=== PATIENT | female | born 1940 | race Caucasian/White ===

== ENCOUNTER 2018-06-22 10:27 | Inpatient (IN) | payer MEDICARE, MEDICAID, SELFPAY ==
[2018-06-22] VITALS (18 sets, daily range): BP systolic 89–143; BP diastolic 49–76; PULSE 76–115; RESP 15–29; TEMP 36.1–36.3; O2SAT 88–100; BMI 41.7
--- NOTE | 2018-06-22 | DI.ECHO.S_ITS ---
[facility] +---------+ : : [address] [place] : : : : [id number] : : : : Phone: [phone] Echocardiogram Report + + :Name: ADRIAN GATES Study Date: 06/22/2018 Height: 62 in : :[facility] Exam Location: IS Weight: 227 lb: : Gender: Female BSA: 2.0 m2 : :: 1940 Age: 78 yrs BP: 89/49 mmHg: :Reason For Study: SOB : :Ordering Physician: Cecil : :Hospitalist Performed By: Yelena Corona : :Referring: SERVANDO WILDER : + + Interpretation Summary Technically limited echocardiogram. No apical views are available for review. Indeterminate rhythm. Wide QRS complexes; heart rate is 90-100 bpm. Normal LV size; mild LVH; normal wall motion and LV systolic function. EF is 60-65%. Aortic sclerosis without stenosis. There is aortic regurgitation present. Can not quantify severity of AI due to technically limited views. Mitral valve leaflets are normal; mild MAC. There is a pacing lead traversing the tricuspid valve with moderate associated TR; estimated PA systolic pressure is 50 mm Hg assuming RA pressure of 10 mm Hg. There is severely dilated ascending aorta estimated at 5.2 cm diameter. No prior study available for comparison. Procedure: A two-dimensional transthoracic echocardiogram with color flow and Doppler was performed. The study quality was technically limited. Comparison is made with the echocardiogram of 08/03/15. The patient had a bundle branch block rhythm during the exam. Left Ventricle: The left ventricle is normal in size. There is mild concentric left ventricular hypertrophy. Due to the poor quality of the echocardiogram, an assessment of left ventricular ejection fraction cannot be made. [place] appears to be hypo to akinetic. Regional wall motion abnormalities cannot be excluded due to limited visualization. Right Ventricle: The right ventricle grossly appears normal in size with probable normal systolic function. Atria: The left atrium is not well visualized. Right atrium not well visualized. There is no Doppler evidence for an interatrial shunt. Mitral Valve: The mitral valve leaflets appear mildly thickened, but open well. There is mild mitral annular calcification. At least mild MR. Aortic Valve: The aortic valve is not well visualized. There is mild aortic valve sclerosis. The aortic valve opens well. At least mild to moderate AR. Tricuspid Valve: The tricuspid valve is normal. There is moderate tricuspid regurgitation. The right ventricular systolic pressure is estimated to be at least 43 mmHg based on an estimated right atrial pressure of 3 mm Hg. Pulmonic Valve: The pulmonic valve is not well visualized. There is trace pulmonic regurgitation. Great Vessels: The aortic root is normal size. The ascending aorta is severely enlarged. The aortic arch is mildly enlarged. The pulmonary is not well visualized. The IVC is of normal diameter and collapses greater than 50% with a sniff. This suggests a low right atrial pressure of 3 mm Hg. Pericardium/ Pleura There is no pericardial effusion. There is no pleural effusion. MMode/2D Measurements & Calculations LVIDd: 5.4 cm LVOT diam: 2.1 cm LVIDs: 3.5 cm Ao root diam: 3.6 cm FS: 35.1 % asc Aorta Diam: 5.2 cm EPSS: 0.38 cm Ao Arch Diam (Prox Trans): 3.4 cm IVSd: 1.3 cm LVPWd: 1.2 cm LV ceron. diameter/BSA (cm/m^2): 2.7 LV sys. diameter/BSA (cm/m^2): 1.7 IVC diam: 2.0 cm Doppler Measurements & Calculations TR max sania: 316.7 cm/sec TR max P.1 mmHg PA V2 max: 85.5 cm/sec PA V2 mean: 57.0 cm/sec PA mean P.5 mmHg PA pr(Accel): 29.1 mmHg Reading Physician:05:17 PM
--- NOTE | 2018-06-22 10:37 | ED_ITS ---
HPI - SOB/Dyspnea General Chief Complaint: Shortness of Breath/Dyspnea Stated Complaint: SOB, Abd pain Time Seen by Provider: 06/22/18 10:37 Source: patient and EMS Mode of arrival: EMS Limitations: no limitations History of Present Illness 78-year-old female who is a DNR but is amendable to BiPAP and intubation brought in from [facility] by EMS for approximately 1-2 days of shortness of breath. Was recently diagnosed with a urinary tract infection. 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 States that over the past couple days her breathing has gotten worse. She is not on oxygen at home. She states that in May she was admitted to the hospital to try to get fluid off of her lungs. She did not know she cared with her the diagnosis of CHF. she states that she has been told that she has had a heart attack in the past but she did not know it. Related Data Home Medications Medication Instructions Recorded Confirmed acetaminophen 1,000 mg PO Q12HR 06/22/18 06/22/18 amoxicillin-pot clavulanate 1 tab PO BID 06/22/18 06/22/18 aspirin 81 mg PO DAILY 06/22/18 06/22/18 calcium carbonate 2 tab PO DAILY 06/22/18 06/22/18 carvedilol 12.5 mg PO BID 06/22/18 06/22/18 cholecalciferol (vitamin D3) 2,000 unit PO DAILY 06/22/18 06/22/18 [Vitamin D3] ezetimibe 10 mg PO DAILY 06/22/18 06/22/18 furosemide 2 tab PO DAILY 06/22/18 06/22/18 hydralazine 12.5 mg PO TID 06/22/18 06/22/18 lisinopril 1 tab PO DAILY 06/22/18 06/22/18 nitroglycerin 0.4 mg SUBLINGUAL PRN 06/22/18 oxycodone 2.5 mg PO BEDTIME 06/22/18 06/22/18 polyethylene glycol 3350 17 g PO DAILY 06/22/18 06/22/18 prednisone 1 mg PO DAILY 06/22/18 06/22/18 torsemide 60 mg PO DAILY 06/22/18 06/22/18 warfarin 2.5 mg PO DIRECTED 06/22/18 06/22/18 warfarin 5 mg PO DIRECTED 06/22/18 06/22/18 Allergies Allergy/AdvReac Type Severity Reaction Status Date / Time No Known Drug Allergies Allergy Verified 06/22/18 11:36 Review of Systems Constitutional Denies fever(s) and Denies headache(s) ENT Ears, Nose, Mouth, and Throat: Denies headache(s) Cardiovascular Denies chest pain and Reports dyspnea Respiratory Denies cough, Denies excessive phlegm production, Reports dyspnea and Reports wheezing Gastrointestinal Gastrointestinal: Reports abdominal pain, Denies change in stool character, Denies nausea and Denies vomiting Genitourinary Denies dysuria Musculoskeletal Denies myalgias and Denies arthralgias Integumentary/Breasts Denies lesions and Denies rash Neurologic Denies headache(s) Hematologic/Lymphatic Denies easy bleeding and Denies easy bruising Allergic/Immunologic Reports wheezing [facility] Medical History Congestive heart failure of unknown etiology (Acute) Coronary artery disease (Acute) Surgical History History of permanent cardiac pacemaker placement (Acute) Social History household members: children Smoking Status: Never smoker alcohol intake: never Exam Initial Vital Signs Initial Vital Signs: Vital Signs Temperature 97.0 F L 06/22/18 10:40 Const General: No healthy appearing ( ill-appearing) and well developed HENMT Head: normal to inspection and normocephalic Eyes EOM: EOM intact bilaterally Neck Neck: No anterior neck swelling Resp Effort & Inspection: no cough, labored, respiratory distress, no retractions and tachypneic Auscultation: rhonchi upper bilaterally and lower bilaterally Cardio Rate: tachycardic Rhythm: regular rhythm Pulses: radial pulses present GI Inspection: non-distended Palpation: soft, No firm and No tender Skin Other: bilateral chronic venous stasis changes bilateral lower extremities Neuro General: alert, awake and oriented x3 Speech: speech normal Extrem General: normal to inspection and edema ( bilateral 2+ pitting edema lower extremities) Psych Appearance: grossly normal and well kempt Course Orders Ordered: ED Orders 06/22/18 10:44 XR chest 1V Stat EKG-12 Lead Stat 06/22/18 11:47 B Type Natriuretic Peptide Stat Complete Blood Count AUTO DIFF Stat Comprehensive Metabolic Panel Stat Lactate (Lactic Acid) Stat Lipase Stat Procalcitonin Stat Troponin I Stat 06/22/18 11:54 Blood Culture Stat 06/22/18 12:09 Arterial Blood Gas Stat 06/22/18 12:30 Partial Thromboplastin Time Stat Prothrombin Time INR Stat 06/22/18 13:44 Consult to Physician Routine Osmolality Urine Urgent Sodium Urine Random Urgent Urinalysis and Microscopic Stat Urine Culture Stat 06/22/18 14:40 MRSA PCR Stat 06/22/18 15:21 Consult to Dietitian, Adult Routine Consult to Pastoral Services Routine Acetaminophen (Tylenol) 650 mg PO Q6HR PRN PRN Reason: As Needed for Fever/Mild Pain Sodium Chloride (Normal Saline 0.9%) 1,000 mls @ 125 mls/hr IV CONT LILLY Last Admin: 06/22/18 15:06 Dose: 125 mls/hr Nystatin (Nystop) 1 applic TOP BID PRN PRN Reason: Rash Pantoprazole Sodium (Protonix) 40 mg PO 0700 [facility] Discontinued Medications Furosemide (Lasix) 80 mg IV NOW ONE Stop: 06/22/18 11:08 Last Admin: 06/22/18 11:37 Dose: 80 mg Lorazepam (Ativan) 0.5 mg IV NOW ONE Stop: 06/22/18 12:22 Last Admin: 06/22/18 12:22 Dose: 0.5 mg Nitroglycerin (Nitro-Bid) 1 inch TOP NOW ONE Stop: 06/22/18 11:57 Last Admin: 06/22/18 12:23 Dose: Ondansetron HCl (Zofran) 4 mg IV NOW ONE Stop: 06/22/18 11:39 Last Admin: 06/22/18 11:37 Dose: 4 mg Phytonadione (Mephyton) 5 mg PO NOW ONE Stop: 06/22/18 12:43 Last Admin: 06/22/18 12:51 Dose: 5 mg Vital Signs - 8 hr 06/22/18 10:40 06/22/18 11:05 06/22/18 11:30 Temperature 97.0 F L Pulse Rate 113 H 98 H Respiratory Rate 29 H 27 H Blood Pressure Blood Pressure [Left Arm] 143/75 H 128/73 Pulse Oximetry 88 L 100 06/22/18 12:02 06/22/18 12:23 06/22/18 12:30 Temperature Pulse Rate 98 H 96 H 99 H Respiratory Rate 24 24 Blood Pressure 112/69 Blood Pressure [Left Arm] 112/59 L 108/66 Pulse Oximetry 99 06/22/18 13:00 06/22/18 13:30 06/22/18 14:00 Temperature Pulse Rate 96 H 92 H 91 H Respiratory Rate 24 24 Blood Pressure Blood Pressure [Left Arm] 96/53 L 92/56 L 89/49 L Pulse Oximetry 100 100 100 06/22/18 17:09 Temperature Pulse Rate 76 Respiratory Rate 16 Blood Pressure Blood Pressure [Left Arm] Pulse Oximetry 96 MDM - SOB/Dyspnea Medical Records Attestation: I reviewed the patient's medical records. Lab Data Attestation: I reviewed the patient's lab results. Result diagrams: 06/22/18 11:47 06/22/18 11:47 Lab Results 06/22/18 06/22/18 06/22/18 Range/Units 11:47 11:47 11:47 WBC 13.2 H (4.5-11.0) X10^3/uL RBC 3.42 L (4.0-5.2) X10^6/uL Hgb 9.8 L (12.0-16.0) g/dL Hct 30.4 L (36-46) % MCV 88.8 (80-100) fL MCH 28.7 (26-34) PG MCHC 32.4 (30-36) % RDW 18.2 H (11.6-14.8) % Plt Count 245 (150-400) X10^3/uL Neut % (Auto) 93.3 H (50-75) % Lymph % (Auto) 3.3 L (25-40) % [place] % (Auto) 2.6 L (3-14) % Eos % (Auto) 0.5 L (2-4) % Baso % (Auto) 0.3 (0-2) % Neut # (Auto) 20650 H (6825-0937) /uL PT (10.1-12.7) SECONDS INR (0.9-1.3) APTT (26.4-36.2) SECONDS ABG pH (7.35-7.45) ABG pCO2 (35-45) mmHg ABG pO2 (80-105) mmHg ABG HCO3 (23-27) mmol/L ABG Total CO2 (23-27) mmol/L ABG O2 Saturation (95-100) % ABG Base Excess (-2-3) mmol/L FiO2 Sodium 142 (137-145) mmol/L Potassium 5.4 H (3.4-5.1) mmol/L Chloride 102 (98-107) mmol/L Carbon Dioxide 29 (22-32) mmol/L BUN 65 H (7-17) mg/dL Creatinine 1.80 H (0.52-1.04) mg/dL Estimated GFR 27.1 L (>60) mL/min BUN/Creatinine Ratio 36.1 H (6-22) Glucose 134 H (80-110) mg/dL Lactate (0.7-2.1) mmol/L Calcium 9.7 (8.4-10.2) mg/dL Total Bilirubin 0.5 (0.2-1.3) mg/dL AST 31 (14-36) IU/L ALT 33 (9-52) IU/L Alkaline Phosphatase 80 (38-126) U/L Troponin I 0.032 (0.01-0.034) ng/mL B-Natriuretic Peptide 590.0 H (<100) Total Protein 7.5 (6.3-8.2) g/dL Albumin 4.3 (3.5-5.0) g/dL Globulin 3.2 (1.7-4.1) g/dL Albumin/Globulin Ratio 1.3 (1.0-2.8) Lipase 461 H (23-300) U/L Procalcitonin < 0.05 (<0.5) ng/mL Urine Color Urine Appearance Urine pH (4.5-8.0) Ur Specific [place] (1.000-1.035) Urine Protein (Negative) Urine Glucose (UA) (Normal) g/dL Urine Ketones (NEGATIVE) Urine Occult Blood (Negative) Urine Nitrate (Negative) Urine Bilirubin (NEGATIVE) Urine Urobilinogen (0.2) E.U./dL Ur Leukocyte Esterase (NEGATIVE) Urine RBC (0-5/HPF) Urine WBC (0-5/HPF) Ur Squamous Epith Cells Urine Bacteria (None) Ur Culture Indicated? Micro UA Comment Ur Random Sodium (30-90) mmol/L Nasal Screen MRSA (PCR) (Negative) 06/22/18 06/22/18 06/22/18 Range/Units 11:47 12:09 12:30 WBC (4.5-11.0) X10^3/uL RBC (4.0-5.2) X10^6/uL Hgb (12.0-16.0) g/dL Hct (36-46) % MCV (80-100) fL MCH (26-34) PG MCHC (30-36) % RDW (11.6-14.8) % Plt Count (150-400) X10^3/uL Neut % (Auto) (50-75) % Lymph % (Auto) (25-40) % [place] % (Auto) (3-14) % Eos % (Auto) (2-4) % Baso % (Auto) (0-2) % Neut # (Auto) (9268-7021) /uL PT 118.2 H (10.1-12.7) SECONDS INR 10.4 H* (0.9-1.3) APTT 84 H* (26.4-36.2) SECONDS ABG pH 7.42 (7.35-7.45) ABG pCO2 42.5 (35-45) mmHg ABG pO2 136 H (80-105) mmHg ABG HCO3 27 (23-27) mmol/L ABG Total CO2 29 H (23-27) mmol/L ABG O2 Saturation 99 (95-100) % ABG Base Excess 3.0 (-2-3) mmol/L FiO2 0.5 Sodium (137-145) mmol/L Potassium (3.4-5.1) mmol/L Chloride (98-107) mmol/L Carbon Dioxide (22-32) mmol/L BUN (7-17) mg/dL Creatinine (0.52-1.04) mg/dL Estimated GFR (>60) mL/min BUN/Creatinine Ratio (6-22) Glucose (80-110) mg/dL Lactate 0.8 (0.7-2.1) mmol/L Calcium (8.4-10.2) mg/dL Total Bilirubin (0.2-1.3) mg/dL AST (14-36) IU/L ALT (9-52) IU/L Alkaline Phosphatase (38-126) U/L Troponin I (0.01-0.034) ng/mL B-Natriuretic Peptide (<100) Total Protein (6.3-8.2) g/dL Albumin (3.5-5.0) g/dL Globulin (1.7-4.1) g/dL Albumin/Globulin Ratio (1.0-2.8) Lipase (23-300) U/L Procalcitonin (<0.5) ng/mL Urine Color Urine Appearance Urine pH (4.5-8.0) Ur Specific [place] (1.000-1.035) Urine Protein (Negative) Urine Glucose (UA) (Normal) g/dL Urine Ketones (NEGATIVE) Urine Occult Blood (Negative) Urine Nitrate (Negative) Urine Bilirubin (NEGATIVE) Urine Urobilinogen (0.2) E.U./dL Ur Leukocyte Esterase (NEGATIVE) Urine RBC (0-5/HPF) Urine WBC (0-5/HPF) Ur Squamous Epith Cells Urine Bacteria (None) Ur Culture Indicated? Micro UA Comment Ur Random Sodium (30-90) mmol/L Nasal Screen MRSA (PCR) (Negative) 06/22/18 06/22/18 06/22/18 Range/Units 13:44 13:44 14:40 WBC (4.5-11.0) X10^3/uL RBC (4.0-5.2) X10^6/uL Hgb (12.0-16.0) g/dL Hct (36-46) % MCV (80-100) fL MCH (26-34) PG MCHC (30-36) % RDW (11.6-14.8) % Plt Count (150-400) X10^3/uL Neut % (Auto) (50-75) % Lymph % (Auto) (25-40) % [place] % (Auto) (3-14) % Eos % (Auto) (2-4) % Baso % (Auto) (0-2) % Neut # (Auto) (3954-7201) /uL PT (10.1-12.7) SECONDS INR (0.9-1.3) APTT (26.4-36.2) SECONDS ABG pH (7.35-7.45) ABG pCO2 (35-45) mmHg ABG pO2 (80-105) mmHg ABG HCO3 (23-27) mmol/L ABG Total CO2 (23-27) mmol/L ABG O2 Saturation (95-100) % ABG Base Excess (-2-3) mmol/L FiO2 Sodium (137-145) mmol/L Potassium (3.4-5.1) mmol/L Chloride (98-107) mmol/L Carbon Dioxide (22-32) mmol/L BUN (7-17) mg/dL Creatinine (0.52-1.04) mg/dL Estimated GFR (>60) mL/min BUN/Creatinine Ratio (6-22) Glucose (80-110) mg/dL Lactate (0.7-2.1) mmol/L Calcium (8.4-10.2) mg/dL Total Bilirubin (0.2-1.3) mg/dL AST (14-36) IU/L ALT (9-52) IU/L Alkaline Phosphatase (38-126) U/L Troponin I (0.01-0.034) ng/mL B-Natriuretic Peptide (<100) Total Protein (6.3-8.2) g/dL Albumin (3.5-5.0) g/dL Globulin (1.7-4.1) g/dL Albumin/Globulin Ratio (1.0-2.8) Lipase (23-300) U/L Procalcitonin (<0.5) ng/mL Urine Color Yellow Urine Appearance Sl cloudy Urine pH 6.0 (4.5-8.0) Ur Specific [place] 1.010 (1.000-1.035) Urine Protein Negative (Negative) Urine Glucose (UA) Negative (Normal) g/dL Urine Ketones Negative (NEGATIVE) Urine Occult Blood 2+ H (Negative) Urine Nitrate Negative (Negative) Urine Bilirubin Negative (NEGATIVE) Urine Urobilinogen 0.2 (0.2) E.U./dL Ur Leukocyte Esterase 2+ H (NEGATIVE) Urine RBC 1-5/hpf (0-5/HPF) Urine WBC 1-5/hpf (0-5/HPF) Ur Squamous Epith Cells 0-1 /hpf Urine Bacteria Occasional (0-1) (None) Ur Culture Indicated? Not Reportable Micro UA Comment Not Reportable Ur Random Sodium 89 (30-90) mmol/L Nasal Screen MRSA (PCR) Negative for mrsa (Negative) Imaging Data Chest x-ray: Radiologist's impression: [facility] [address] [place] [id number] XRay Report Signed Patient: Janet eMndez LMR#: [id number] : 8Acct:[id number] Age/Sex: 78 / FDate of Service: 06/22/18 Loc: ED Accession Number: [id number] Procedure: XR chest 1V Ordering Provider: Shashank Aragon D.O. PROCEDURE: XR CHEST 1V INDICATIONS: Short of breath TECHNIQUE: One view of the chest was acquired. COMPARISON: [facility], CT, THORAX WITHOUT CONTRAST, 08/03/2015, 2:01. [facility], CR, CHEST 1 VIEW, 08/03/2015, 1:24. FINDINGS: Surgical changes and devices: A pacer device is seen. Lungs and pleura: Poorly-defined nodular opacities are seen throughout the lungs. On this semiupright portable chest examination, no large pneumothorax or large pleural effusions are seen. Mediastinum: Mediastinal contours appear normal. Heart size is moderately enlarged. Bones and chest wall: No suspicious bony lesions. Age-appropriate bony degenerative changes are seen. Overlying soft tissues appear unremarkable. IMPRESSION: Poorly defined nodular opacities are seen throughout the lungs. Differential diagnosis includes metastatic disease, infection, inflammatory nodules. Please consider a dedicated chest CT with contrast for further evaluation. There is moderate cardiomegaly. Dictated by: Pako Love M.D. on 06/22/2018 at 10:33 Approved by: Pako Love M.D. on 06/22/2018 at 10:35 ECG Data Attestation: I personally reviewed and interpreted this ECG as follows: Prior ECG tracings: not available for review Interpretation: ventricularly paced ventricular rate of 111 QRS 190 milliseconds Normal QTC MDM Narrative Medical decision making narrative: Patient with much improvement in respiratory status on the BiPAP. She did receive some Ativan to help her with the symptoms. ABG shows a pH of 7.4 pCO2 of 42 PO2 of 136 99%. She was tolerating the BiPAP well. Chest x-ray shows diffuse pulmonary nodules. Unsure the etiology of these. She was also supratherapeutic on her INR. Was given vitamin K orally. Patient does need a CT with IV contrast however I feel she is not stable enough to get this in her creatinine is also elevated today. Discussed the case with Dr. Cortez with Internal Medicine who accepts the patient. Will send to the ICU. Discussed the admission with the patient. She expressed understanding and agreement. Discharge Plan Departure Patient Disposition: Admitted As Inpatient Clinical Impression: Congestive heart failure, Acute respiratory distress, Pulmonary nodule, Supratherapeutic INR Discharge Date/Time: 06/22/18 14:48 Interventions: ED Discharge Assessment Last Done: 06/22/18 14:25 Admit Date/Time: 06/22/18 13:47 Admit Provider: Meet Cortez
--- NOTE | 2018-06-22 10:44 | DI.RAD.S_ITS ---
PROCEDURE: XR CHEST 1V INDICATIONS: Short of breath TECHNIQUE: One view of the chest was acquired. COMPARISON: [facility], CT, THORAX WITHOUT CONTRAST, 08/03/2015, 2:01. [facility], CR, CHEST 1 VIEW, 08/03/2015, 1:24. FINDINGS: Surgical changes and devices: A pacer device is seen. Lungs and pleura: Poorly-defined nodular opacities are seen throughout the lungs. On this semiupright portable chest examination, no large pneumothorax or large pleural effusions are seen. Mediastinum: Mediastinal contours appear normal. Heart size is moderately enlarged. Bones and chest wall: No suspicious bony lesions. Age-appropriate bony degenerative changes are seen. Overlying soft tissues appear unremarkable. IMPRESSION: Poorly defined nodular opacities are seen throughout the lungs. Differential diagnosis includes metastatic disease, infection, inflammatory nodules. Please consider a dedicated chest CT with contrast for further evaluation. There is moderate cardiomegaly. Dictated by: Pako Love M.D. on 06/22/2018 at 10:33 Approved by: Pako Love M.D. on 06/22/2018 at 10:35
[2018-06-22] MEDS: ONDANSETRON 4 MG/2 ML INJ IV ×2 (11:37→21:36)
[2018-06-22] MEDS: FUROSEMIDE 100 MG/10 ML VIAL 80 MG IV (11:37)
[2018-06-22 11:57] LABS: Add Manual Diff / Slide Review NO; Basophils Percent Auto 0.3 % (0-2); Eosinophils Percent Auto 0.5 % (2-4); Hematocrit 30.4 % (36-46); Hemoglobin 9.8 g/dL (12.0-16.0); Lymphocytes Percent Auto 3.3 % (25-40); Mean Corpuscular HGB Conc 32.4 % (30-36); Mean Corpuscular Hemoglobin 28.7 PG (26-34); Mean Corpuscular Volume 88.8 fL (80-100); Monocytes Percent Auto 2.6 % (3-14); Neutrophils Absolute Auto 12300 /uL (3000-5900); Neutrophils Percent Auto 93.3 % (50-75); Platelet Count 245 X10^3/uL (150-400); Red Blood Cell Count 3.42 X10^6/uL (4.0-5.2); Red Cell Distribution Width 18.2 % (11.6-14.8); White Blood Cell Count 13.2 X10^3/uL (4.5-11.0)
--- NOTE | 2018-06-22 11:59 | PC.NURSE ---
pt placed on Bi-pap by RT. 02 sats increased from mid to upper 80's (86-88) to 100%, pt reports feeling a little bit better. She is resting more easliy, still able to communicate. getting 80mg lasix iv and attempting abg by rt)
[2018-06-22 12:07] LABS: Lactate (Lactic Acid) 0.8 mmol/L (0.7-2.1)
[2018-06-22 12:08] LABS: Alanine Aminotransferase 33 IU/L (9-52); Albumin 4.3 g/dL (3.5-5.0); Albumin Globulin Ratio 1.3 (1.0-2.8); Alkaline Phosphatase 80 U/L (38-126); Aspartate Aminotransferase 31 IU/L (14-36); BUN Creatinine Ratio 36.1 (6-22); Bilirubin Total 0.5 mg/dL (0.2-1.3); Blood Urea Nitrogen 65 mg/dL (7-17); Calcium 9.7 mg/dL (8.4-10.2); Carbon Dioxide 29 mmol/L (22-32); Chloride 102 mmol/L (98-107); Estimated Glomerular Filt Rate 27.1 mL/min (>60); Globulin 3.2 g/dL (1.7-4.1); Glucose 134 mg/dL (80-110); HEMOLYSIS < 15 (0-50); Lipase 461 U/L (23-300); Sodium 142 mmol/L (137-145); Total Protein 7.5 g/dL (6.3-8.2)
[2018-06-22 12:10] LABS: Potassium 5.4 mmol/L (3.4-5.1)
[2018-06-22 12:20] LABS: Troponin I 0.032 ng/mL (0.01-0.034)
[2018-06-22] MEDS: LORazepam 2 MG/ML SYRINGE 0.5 MG IV (12:22)
[2018-06-22 12:23] LABS: Fractionated Inspired Oxygen 0.5; HCO3 ABG 27 mmol/L (23-27); Oxygen Saturation ABG 99 % (95-100); PCO2 ABG 42.5 mmHg (35-45); PO2 ABG 136 mmHg (80-105); TCO2 ABG 29 mmol/L (23-27); pH ABG 7.42 (7.35-7.45)
[2018-06-22 12:25] LABS: Procalcitonin < 0.05 ng/mL (<0.5)
[2018-06-22] MEDS: PHYTONADIONE (VIT K1) 5 MG TABLET PO (12:51)
[2018-06-22 13:00] LABS: Prothrombin Time 118.2 SECONDS (10.1-12.7)
[2018-06-22 13:03] LABS: INR 10.4 (0.9-1.3); PTT Partial Thromboplastin Tim 84 SECONDS (26.4-36.2)
--- NOTE | 2018-06-22 14:56 | PC.ADMIT ---
[address] Admission Note: The patient,Janet Mendez,78 y/o, was given written information regarding hospital policies, unit procedures and contact persons. Patient's smoking status: . Vital Signs - 8 hr 06/22/18 10:40 06/22/18 11:05 06/22/18 11:30 Temperature 97.0 F L Pulse Rate 113 H 98 H Respiratory Rate 29 H 27 H Blood Pressure Blood Pressure [Left Arm] 143/75 H 128/73 Pulse Oximetry 88 L 100 06/22/18 12:02 06/22/18 12:23 06/22/18 12:30 Temperature Pulse Rate 98 H 96 H 99 H Respiratory Rate 24 24 Blood Pressure 112/69 Blood Pressure [Left Arm] 112/59 L 108/66 Pulse Oximetry 99 06/22/18 13:00 06/22/18 13:30 06/22/18 14:00 Temperature Pulse Rate 96 H 92 H 91 H Respiratory Rate 24 24 Blood Pressure Blood Pressure [Left Arm] 96/53 L 92/56 L 89/49 L Pulse Oximetry 100 100 100 Pt admitted from ED to 106. AO x3 and making needs known with clear speech. 1PA from stretcher to BSC. Pt voided and had BM. Transferred to bed. Pt requested break from bipap. Placed on 4L High flow nasal cannula for SPO2 95%. Course crackles heard posteriorly. Positioned with HOB 50 degrees for pt comfort. Requesting something to drink. Oral swabs provided. Oriented to room, routine, plan of care. Call light in easy reach.
[2018-06-22] MEDS: SODIUM CHLORIDE 0.9% 1,000 ML 125 ML IV ×2 (15:06→23:12)
[2018-06-22 15:24] LABS: Appearance Urine UA SL CLOUDY; Bilirubin Urine UA NEGATIVE (NEGATIVE); Color Urine UA YELLOW; Glucose Urine UA NEGATIVE (Normal); Ketones Urine UA NEGATIVE (NEGATIVE); Leukocyte Esterase Urine UA 2+ (NEGATIVE); Nitrite Urine UA NEGATIVE (Negative); Occult Blood Urine UA 2+ (Negative); Protein Urine UA NEGATIVE (Negative); Urobilinogen Urine UA 0.2 E.U./dL (0.2)
[2018-06-22 15:40] LABS: Bacteria Urine Occasional (0-1); RBC Urine 1-5/HPF (0-5/HPF); Squamous Epithelial Cell Urine 0-1 /HPF; WBC Urine 1-5/HPF (0-5/HPF)
--- NOTE | 2018-06-22 16:29 | PM.HP.1 ---
History of Present Illness Date Patient Seen: 06/22/18 Time Patient Seen: 13:29 Chief complaint: SOB, Abd pain Narrative: Chief complaint Shortness of breath and abdominal pain History of present illness 78 years of age female that lives on [facility] with her daughter presents to the ER complaintive of shortness of breath and abdominal pain. Patient was placed on BiPAP early in the ER with good relief. Patient was demonstrating a pulse ox in the 80s at room air before the BiPAP. Patient is normally not on oxygen in home setting. Patient notes the shortness of breath has evolved quite rapidly over the last 24 hr. Patient was recently placed on amoxicillin about a day and half ago For urinary tract infection. There was no complaint of the itch or dermatitis. No recent fevers and chills noted Patient History Medical History Congestive heart failure of unknown etiology (Acute) Coronary artery disease (Acute) Surgical History History of permanent cardiac pacemaker placement (Acute) Comment: Past medical history patient had a pacemaker placed in 2015 patient had a DVT to lower extremity 2015 she has been on Coumadin since then to treat. No history of atrial fibrillation. Patient has been told she has atherosclerotic heart disease based upon some sort of workup according to the daughter at bedside. Patient also with history of congestive heart failure but the daughter can't recall whether it is systolic versus diastolic or both. No history of diabetes no history of cancer no history of home oxygen supplement. Family & Social History Social History: household members children Prior Living Arrangements Apartment/Condo Safety & Behavioral: Feels Safe in Current Yes Environment Been Physically Hurt or No Threatened By a Person Suicidal Ideation Description None Tobacco & Substance use: Smoking Status Never smoker alcohol intake never Substance Use Type does not use Comment: Social history Patient lives on [facility] with her daughter Patient is a nonsmoker Non alcoholic Surgical history Pacer placed 2016 Left hip replacement November 2017 Family history sister with lung cancer. Sister was a smoker. Meds Home Medications Medication Instructions Recorded Confirmed Type acetaminophen 1,000 mg PO Q12HR 06/22/18 06/22/18 History amoxicillin-pot clavulanate 1 tab PO BID 06/22/18 06/22/18 History aspirin 81 mg PO DAILY 06/22/18 06/22/18 History calcium carbonate 2 tab PO DAILY 06/22/18 06/22/18 History carvedilol 12.5 mg PO BID 06/22/18 06/22/18 History cholecalciferol (vitamin D3) 2,000 unit PO DAILY 06/22/18 06/22/18 History [Vitamin D3] ezetimibe 10 mg PO DAILY 06/22/18 06/22/18 History furosemide 2 tab PO DAILY 06/22/18 06/22/18 History hydralazine 12.5 mg PO TID 06/22/18 06/22/18 History lisinopril 1 tab PO DAILY 06/22/18 06/22/18 History nitroglycerin 0.4 mg SUBLINGUAL PRN 06/22/18 History oxycodone 2.5 mg PO BEDTIME 06/22/18 06/22/18 History polyethylene glycol 3350 17 g PO DAILY 06/22/18 06/22/18 History prednisone 1 mg PO DAILY 06/22/18 06/22/18 History torsemide 60 mg PO DAILY 06/22/18 06/22/18 History warfarin 2.5 mg PO DIRECTED 06/22/18 06/22/18 History warfarin 5 mg PO DIRECTED 06/22/18 06/22/18 History Allergies Allergy/AdvReac Type Severity Reaction Status Date / Time No Known Drug Allergies Allergy Verified 06/22/18 11:36 Review of Systems Review of Systems A 10 point system reviewed with patient was negative except for the symptoms as described in HPI Exam Vital Signs (past 8 hours): - 06/22/18 10:40 06/22/18 11:05 06/22/18 11:30 Temperature 97.0 F L Pulse Rate 113 H 98 H Respiratory Rate 29 H 27 H Blood Pressure Blood Pressure [Left Arm] 143/75 H 128/73 Pulse Oximetry 88 L 100 06/22/18 12:02 06/22/18 12:23 06/22/18 12:30 Temperature Pulse Rate 98 H 96 H 99 H Respiratory Rate 24 24 Blood Pressure 112/69 Blood Pressure [Left Arm] 112/59 L 108/66 Pulse Oximetry 99 06/22/18 13:00 06/22/18 13:30 06/22/18 14:00 Temperature Pulse Rate 96 H 92 H 91 H Respiratory Rate 24 24 Blood Pressure Blood Pressure [Left Arm] 96/53 L 92/56 L 89/49 L Pulse Oximetry 100 100 100 Oxygen Delivery Method CPAP Narrative Exam Narrative: General appearance morbidly obese female no apparent distress at rest the present time. Patient in the ICU setting. Patient on a 4 L nasal cannula she is temporarily off the BiPAP at the moment. Psychiatric all oriented to time place and person mood is pleasant affect is appropriate Skin no rashes or lesions noted dermatitis good turgor nonjaundiced Eyes pupils are equal round and reactive to light Ears nose and throat hearing is good no septum to midline no bleeding no oropharyngeal lesions Respiratory fair breath sounds are noted no significant wheezes or crackles noted Lymph nodes is no lymphadenopathy to neck or axilla difficult to assess though due to the body habitus. Cardiovascular regular rate rhythm no murmur noted +3 pulses to extremities GI morbidly obese obscures exam nontender positive bowel sounds no bruits no guarding abdomen is soft Musculoskeletal muscle strength appears to be 5/5 in all 4 extremities no clubbing no range of motion issues Neurologic no focal neurologic changes cranial nerves 2-12 grossly intact Objective Labs Result Diagrams: 06/22/18 11:47 06/22/18 11:47 Labs: Laboratory Results - last 24 hr 06/22/18 06/22/18 06/22/18 11:47 11:47 11:47 WBC 13.2 H RBC 3.42 L Hgb 9.8 L Hct 30.4 L MCV 88.8 MCH 28.7 MCHC 32.4 RDW 18.2 H Plt Count 245 Neut % (Auto) 93.3 H Lymph % (Auto) 3.3 L [place] % (Auto) 2.6 L Eos % (Auto) 0.5 L Baso % (Auto) 0.3 Neut # (Auto) 14920 H PT INR APTT ABG pH ABG pCO2 ABG pO2 ABG HCO3 ABG Total CO2 ABG O2 Saturation ABG Base Excess FiO2 Sodium 142 Potassium 5.4 H Chloride 102 Carbon Dioxide 29 BUN 65 H Creatinine 1.80 H Estimated GFR 27.1 L BUN/Creatinine Ratio 36.1 H Glucose 134 H Lactate Calcium 9.7 Total Bilirubin 0.5 AST 31 ALT 33 Alkaline Phosphatase 80 Troponin I 0.032 B-Natriuretic Peptide 590.0 H Total Protein 7.5 Albumin 4.3 Globulin 3.2 Albumin/Globulin Ratio 1.3 Lipase 461 H Procalcitonin < 0.05 Urine Color Urine Appearance Urine pH Ur Specific [place] Urine Protein Urine Glucose (UA) Urine Ketones Urine Occult Blood Urine Nitrate Urine Bilirubin Urine Urobilinogen Ur Leukocyte Esterase Urine RBC Urine WBC Ur Squamous Epith Cells Urine Bacteria Ur Culture Indicated? Micro UA Comment Nasal Screen MRSA (PCR) 06/22/18 06/22/18 06/22/18 11:47 12:09 12:30 WBC RBC Hgb Hct MCV MCH MCHC RDW Plt Count Neut % (Auto) Lymph % (Auto) [place] % (Auto) Eos % (Auto) Baso % (Auto) Neut # (Auto) PT 118.2 H INR 10.4 H* APTT 84 H* ABG pH 7.42 ABG pCO2 42.5 ABG pO2 136 H ABG HCO3 27 ABG Total CO2 29 H ABG O2 Saturation 99 ABG Base Excess 3.0 FiO2 0.5 Sodium Potassium Chloride Carbon Dioxide BUN Creatinine Estimated GFR BUN/Creatinine Ratio Glucose Lactate 0.8 Calcium Total Bilirubin AST ALT Alkaline Phosphatase Troponin I B-Natriuretic Peptide Total Protein Albumin Globulin Albumin/Globulin Ratio Lipase Procalcitonin Urine Color Urine Appearance Urine pH Ur Specific [place] Urine Protein Urine Glucose (UA) Urine Ketones Urine Occult Blood Urine Nitrate Urine Bilirubin Urine Urobilinogen Ur Leukocyte Esterase Urine RBC Urine WBC Ur Squamous Epith Cells Urine Bacteria Ur Culture Indicated? Micro UA Comment Nasal Screen MRSA (PCR) 06/22/18 06/22/18 13:44 14:40 WBC RBC Hgb Hct MCV MCH MCHC RDW Plt Count Neut % (Auto) Lymph % (Auto) [place] % (Auto) Eos % (Auto) Baso % (Auto) Neut # (Auto) PT INR APTT ABG pH ABG pCO2 ABG pO2 ABG HCO3 ABG Total CO2 ABG O2 Saturation ABG Base Excess FiO2 Sodium Potassium Chloride Carbon Dioxide BUN Creatinine Estimated GFR BUN/Creatinine Ratio Glucose Lactate Calcium Total Bilirubin AST ALT Alkaline Phosphatase Troponin I B-Natriuretic Peptide Total Protein Albumin Globulin Albumin/Globulin Ratio Lipase Procalcitonin Urine Color Yellow Urine Appearance Sl cloudy Urine pH 6.0 Ur Specific [place] 1.010 Urine Protein Negative Urine Glucose (UA) Negative Urine Ketones Negative Urine Occult Blood 2+ H Urine Nitrate Negative Urine Bilirubin Negative Urine Urobilinogen 0.2 Ur Leukocyte Esterase 2+ H Urine RBC 1-5/hpf Urine WBC 1-5/hpf Ur Squamous Epith Cells 0-1 /hpf Urine Bacteria Occasional (0-1) Ur Culture Indicated? Not Reportable Micro UA Comment Not Reportable Nasal Screen MRSA (PCR) Negative for mrsa Assessment & Plan Plan: Assessment/Plan Narrative: Hypoxemia On chest x-ray patient has quite a remarkable finding with very distinct lesions. A CT of the chest is advised as follow-up. Note patient's serum creatinine is elevated will repeat the serum creatinine in a.m.. If appropriate perhaps then to do a CT of the chest with IV contrast. BiPAP to be provided as needed which appears to be quite effective for the patient. Unlikely patient has a pulmonary embolism since her INR is 10.4 today Supratherapeutic INR Daily INR Hold Coumadin Acute renal failure Daughter at bedside notes patient has no prior history of chronic kidney disease Will do urine osmolality urine sodium and urine microscopic to begin workup Repeat labs in a.m. History of DVT Will need to hold Coumadin at this time due to the high INR. There is no active bleeding History of congestive heart failure Family is unclear whether systolic versus diastolic versus both in failure Echocardiogram 2D to be done when next available Time Spent With Patient Time with patient: Greater than 35 minutes (75 min to admit)
[2018-06-22 17:11] LABS: Sodium Urine Random 89 mmol/L (30-90)
[2018-06-22] MEDS: NYSTATIN POWDER 30 GM 1 APPLIC TOP (18:23)
--- NOTE | 2018-06-22 18:38 | PC.NURSE ---
Evening Shift Note: Pt admitted late on , Dr. Cortez to bedside. Pt's home medication's checked and reconciled. Pt received on 4 LNC, SPO2 96-100%. Pt's with coarse crackles throughout lungs. Pt denies SOB. Pt with skin tear on L arm, injury occurred 3 days ago, pt's daughter says it has been oozing since then. Wound cleansed and dressed with mild pressure with koban around arm per MD request. Pt otherwise with no complaints.
[2018-06-22] MEDS: HYDRALAZINE 25 MG TABLET 12.5 MG PO (21:04)
[2018-06-22] MEDS: CARVEDILOL 12.5 MG TABLET PO (21:05)
[2018-06-22] MEDS: AMOXICILLIN/CLAV 500/125 MG 1 TAB PO (21:09)
[2018-06-22] MEDS: OXYCODONE IR 5 MG TABLET 2.5 MG PO (21:13)
[2018-06-22] MEDS: ACETAMINOPHEN 325 MG TABLET 975 MG PO (23:13)
[2018-06-23] VITALS (27 sets, daily range): BP systolic 72–129; BP diastolic 38–83; PULSE 75–99; RESP 11–28; TEMP 36–36.9; O2SAT 89–98
--- NOTE | 2018-06-23 | DI.US.S_ITS ---
PROCEDURE: US ABDOMEN COMPLETE INDICATIONS: PANCREATITIS TECHNIQUE: Real-time scanning was performed of the abdominal and retroperitoneal organs, with image documentation. COMPARISON: [facility], CT, CT CHEST ABD PEL WO CON, 06/23/2018, 12:04. FINDINGS: Liver: Liver is diffusely increased in echogenicity. No focal hepatic abnormalities identified. Normal hepatic size. Gallbladder: Stone filled gallbladder and the gallbladder wall is not thickened measuring 1.2 mm. Biliary ducts: Intrahepatic bile ducts are non-dilated. Extrahepatic bile duct caliber measures 5.0 mm. Normal is 6-7 mm or less in diameter, or 10 mm or less post-cholecystectomy. Pancreas: Visualized portions of the pancreas are sonographically normal. Spleen: Spleen is normal in size and homogeneous in echotexture. Kidneys: Right kidney measures 8.4 cm long; left kidney measures 9.1 cm long. No hydronephrosis or nephrolithiasis. No solid masses. Mild right renal cortical also is present measuring 1.0 cm Aorta: Not visualized. [place]: Not visualized. IVC: Intrahepatic inferior vena cava is patent. Miscellaneous: No free abdominal fluid. IMPRESSION: 1. Mildly increased hepatic echogenicity noted possibly related to hepatic steatosis but other sources of hepatocellular disease cannot be excluded. Recommend clinical correlation. 2. Cholelithiasis without acute cholecystitis. 3. Mild atrophy and renal cortical thinning of the right kidney. Dictated by: Thony LYNNE Interpreted: Ahmet Silva MD on 06/24/2018 at 12:20 Approved by: Ahmet Silva M.D. on 06/24/2018 at 14:28
--- NOTE | 2018-06-23 | DI.CT.S_ITS ---
PROCEDURE: CT CHEST ABD PEL WO CON INDICATIONS: Abdominal pain, elevated lipase. Pulm nodules. R/O edema TECHNIQUE: After the administration of oral contrast, 5 mm thick sections acquired from the lung apices to the symphysis pubis. 5 mm thick coronal and sagittal reformats acquired, with additional 7 mm coronal MIP reformats through the lungs. For radiation dose reduction, the following was used: automated exposure control, adjustment of mA and/or kV according to patient size. COMPARISON: [facility], CR, XR CHEST 1V, 06/22/2018, 11:11. [facility], CT, THORAX WITHOUT CONTRAST, 08/03/2015, 2:01. [facility], CR, CHEST 1 VIEW, 08/03/2015, 1:24. FINDINGS: Image quality: Limited by very large body habitus and absence of both oral and intravenous contrast. CHEST: Lungs and pleura: Extensive nodular and distinctly marginated multifocal airspace disease is present involving the upper and lower lungs bilaterally. A cavitary lesion is not associated. The appearance is nonspecific but is considered likely a manifestation of atypical pneumonia. No pleural effusions or pneumothorax. Central and peripheral airways are patent are normal in caliber. Mediastinum: Heart size is normal. No pericardial effusion. No mediastinal adenopathy by CT size criteria. Thoracic aorta and central pulmonary arteries are normal in size. Esophagus is normal in caliber. No hiatal hernia. Chest wall: No axillary or supraclavicular adenopathy by size criteria. Thyroid gland is not well-seen due to noncontrast technique and very large body habitus. ABDOMEN: Solid organs: Liver is normal in size. Gallbladder contains multiple large gallstones each measuring approximately 1.4 cm but without associated inflammation. Pancreas is normal in contours. Spleen is normal in size. No adrenal nodules. Both kidneys are free of hydronephrosis and the collecting system appears normal in size, but there is asymmetry of the kidney is smaller on the left than the right and 2 nonobstructive calculi can be seen at the middle third anterior collecting system of the right kidney. Peritoneum and bowel: Small and large bowel loops are normal in caliber and wall thickness. No free fluid or air. Nodes and vessels: No retroperitoneal or mesenteric adenopathy by size criteria. Aorta and inferior vena cava are normal in size. Miscellaneous: No ventral hernias, but there is a lower midline ventral eventration. PELVIS: Genitourinary: Bladder wall thickness is normal. Miscellaneous: No inguinal hernias or adenopathy. Bones: No suspicious bony lesions. No vertebral body compression fractures. IMPRESSION: Patchy nodular and distinctly marginated moderately severe airspace disease likely representing a manifestation of atypical pneumonia. Cavitary transformation is not seen that would indicate presence of multifocal septic emboli. Note made of multiple moderate size gallstones within the gallbladder lumen without evidence of acute cholecystitis or biliary obstruction. 2 small nonobstructive calculi are seen within an anterior calyx of the right mid kidney. Asymmetry of the kidneys, normal in size at the right kidney and mildly atrophic the left. Multiple calcified uterine fibroids. No evidence for pelvic mass or abnormal fluid collection. Eventration of the lower pelvic body wall but without associated ventral hernia. Dictated by: Johnie Carmen M.D. on 06/23/2018 at 13:09 Approved by: Johnie Carmen M.D. on 06/23/2018 at 13:18
[2018-06-23] MEDS: SODIUM CHLORIDE 0.9% 1,000 ML 125 ML IV (06:59)
[2018-06-23] MEDS: ACETAMINOPHEN 325 MG TABLET 975 MG PO ×2 (08:20→20:31)
[2018-06-23] MEDS: CALCIUM CARBONATE 600 MG TABLET 1200 MG PO (08:21)
[2018-06-23] MEDS: CHOLECALCIFEROL (VITAMIN D3) 1,000 UNIT TABLET 2000 UNIT PO (08:21)
[2018-06-23] MEDS: CARVEDILOL 12.5 MG TABLET PO ×2 (08:22→20:34)
[2018-06-23] MEDS: HYDRALAZINE 25 MG TABLET 12.5 MG PO ×2 (08:22→22:00)
[2018-06-23] MEDS: ASPIRIN EC 81 MG TABLET PO (08:22)
[2018-06-23] MEDS: EZETIMIBE 10 MG TABLET PO (08:22)
[2018-06-23] MEDS: NYSTATIN POWDER 30 GM 1 APPLIC TOP (08:23)
[2018-06-23] MEDS: PANTOPRAZOLE 40 MG TABLET PO (08:28)
[2018-06-23 09:01] LABS: Add Manual Diff / Slide Review NO; Basophils Percent Auto 0.5 % (0-2); Eosinophils Percent Auto 1.2 % (2-4); Hematocrit 25.7 % (36-46); Hemoglobin 8.4 g/dL (12.0-16.0); Lymphocytes Percent Auto 9.8 % (25-40); Mean Corpuscular HGB Conc 32.8 % (30-36); Mean Corpuscular Hemoglobin 29.5 PG (26-34); Mean Corpuscular Volume 89.9 fL (80-100); Neutrophils Absolute Auto 8600 /uL (3000-5900); Neutrophils Percent Auto 83.5 % (50-75); Platelet Count 205 X10^3/uL (150-400); Red Blood Cell Count 2.86 X10^6/uL (4.0-5.2); Red Cell Distribution Width 18.5 % (11.6-14.8); White Blood Cell Count 10.3 X10^3/uL (4.5-11.0)
[2018-06-23 09:03] LABS: Prothrombin Time 93.8 SECONDS (10.1-12.7)
[2018-06-23 09:05] LABS: INR 8.3 (0.9-1.3)
[2018-06-23 09:07] LABS: Alanine Aminotransferase 30 IU/L (9-52); Albumin 3.7 g/dL (3.5-5.0); Albumin Globulin Ratio 1.3 (1.0-2.8); Alkaline Phosphatase 62 U/L (38-126); Aspartate Aminotransferase 26 IU/L (14-36); BUN Creatinine Ratio 32.8 (6-22); Bilirubin Total 0.6 mg/dL (0.2-1.3); Blood Urea Nitrogen 59 mg/dL (7-17); Calcium 9.2 mg/dL (8.4-10.2); Carbon Dioxide 26 mmol/L (22-32); Chloride 102 mmol/L (98-107); Estimated Glomerular Filt Rate 27.1 mL/min (>60); Globulin 2.9 g/dL (1.7-4.1); Glucose 100 mg/dL (80-110); HEMOLYSIS < 15 (0-50); Sodium 140 mmol/L (137-145); Total Protein 6.6 g/dL (6.3-8.2)
--- NOTE | 2018-06-23 10:42 | PC.NURSE ---
Rounded. Discussed assessment, pt condition, plan of care. Reported LFA s/t oozing blood. MD instructed to change dsg: cleanse wound with SNS, pat dry, apply adaptek, cover with gauze, secure with coban and monitor. Dsg change complete. Pt tolerated well. Noted small approx 2 cm skin tear with moderate sang drainage. Pt sitting up to chair with call light in reach.
--- NOTE | 2018-06-23 10:50 | P.PN_ITS ---
Subjective Date Patient Seen: 06/23/18 Time Patient Seen: 10:44 Interval history: FOLLOW UP ON ACUTE HYPOXIC RESPIRATORY FAILURE IN SETTING OF FLUID OVERLOAD VS PNA AND ABDOMINAL PAIN Patient seen at bedside. She is currently on 2L O2 sturating well. States her breathing has improved a lot however she still gets short of breath while moving around. She continues to have mild LUQ abdominal pain that she states does not radiate. Patient is able to tolerate PO and denies any nausea/vomiting , constipation. Has occasional diarrhea but has been taking miralax. No overnight events. Continues to be afebrile. Exam Vital Signs (past 8 hours): - 06/23/18 03:00 06/23/18 03:20 06/23/18 04:00 Temperature 98 F Pulse Rate 88 83 79 Respiratory Rate 22 17 18 Blood Pressure 116/50 L 101/53 L Pulse Oximetry 93 94 94 06/23/18 05:00 06/23/18 06:00 06/23/18 07:00 Temperature 98.2 F Pulse Rate 80 80 91 H Respiratory Rate 18 20 25 H Blood Pressure 92/48 L 107/58 L 119/64 Pulse Oximetry 95 96 95 06/23/18 08:00 Temperature Pulse Rate 99 H Respiratory Rate 11 L Blood Pressure 119/83 Pulse Oximetry 96 Oxygen Delivery Method Nasal Cannula Oxygen Flow Rate 2 Narrative Exam Narrative: Gen: NAD, AAOx3 HEENT: PERRLA BL, EOMI BL. O2 2L in place saturating 98% Neck: Supple, no JVD Resp: Crackles heard BL at the bases. Some rhonchi also appreciated all throughout lung [place] CV: RRR, no murmurs or gallops GI: +BS, soft, nontender, obese MSK: moves all ext Skin: 2+ pitting edema up to knees appreciated Objective Labs Result Diagrams: 06/23/18 08:25 06/23/18 08:25 Labs: Laboratory Results - last 24 hr 06/22/18 06/22/18 06/22/18 11:47 11:47 11:47 WBC 13.2 H RBC 3.42 L Hgb 9.8 L Hct 30.4 L MCV 88.8 MCH 28.7 MCHC 32.4 RDW 18.2 H Plt Count 245 Neut % (Auto) 93.3 H Lymph % (Auto) 3.3 L [place] % (Auto) 2.6 L Eos % (Auto) 0.5 L Baso % (Auto) 0.3 Neut # (Auto) 45129 H PT INR APTT ABG pH ABG pCO2 ABG pO2 ABG HCO3 ABG Total CO2 ABG O2 Saturation ABG Base Excess FiO2 Sodium 142 Potassium 5.4 H Chloride 102 Carbon Dioxide 29 BUN 65 H Creatinine 1.80 H Estimated GFR 27.1 L BUN/Creatinine Ratio 36.1 H Glucose 134 H Lactate Calcium 9.7 Total Bilirubin 0.5 AST 31 ALT 33 Alkaline Phosphatase 80 Troponin I 0.032 B-Natriuretic Peptide 590.0 H Total Protein 7.5 Albumin 4.3 Globulin 3.2 Albumin/Globulin Ratio 1.3 Lipase 461 H Procalcitonin < 0.05 Urine Color Urine Appearance Urine pH Ur Specific [place] Urine Protein Urine Glucose (UA) Urine Ketones Urine Occult Blood Urine Nitrate Urine Bilirubin Urine Urobilinogen Ur Leukocyte Esterase Urine RBC Urine WBC Ur Squamous Epith Cells Urine Bacteria Ur Culture Indicated? Micro UA Comment Ur Random Sodium Nasal Screen MRSA (PCR) 06/22/18 06/22/18 06/22/18 11:47 12:09 12:30 WBC RBC Hgb Hct MCV MCH MCHC RDW Plt Count Neut % (Auto) Lymph % (Auto) [place] % (Auto) Eos % (Auto) Baso % (Auto) Neut # (Auto) PT 118.2 H INR 10.4 H* APTT 84 H* ABG pH 7.42 ABG pCO2 42.5 ABG pO2 136 H ABG HCO3 27 ABG Total CO2 29 H ABG O2 Saturation 99 ABG Base Excess 3.0 FiO2 0.5 Sodium Potassium Chloride Carbon Dioxide BUN Creatinine Estimated GFR BUN/Creatinine Ratio Glucose Lactate 0.8 Calcium Total Bilirubin AST ALT Alkaline Phosphatase Troponin I B-Natriuretic Peptide Total Protein Albumin Globulin Albumin/Globulin Ratio Lipase Procalcitonin Urine Color Urine Appearance Urine pH Ur Specific [place] Urine Protein Urine Glucose (UA) Urine Ketones Urine Occult Blood Urine Nitrate Urine Bilirubin Urine Urobilinogen Ur Leukocyte Esterase Urine RBC Urine WBC Ur Squamous Epith Cells Urine Bacteria Ur Culture Indicated? Micro UA Comment Ur Random Sodium Nasal Screen MRSA (PCR) 06/22/18 06/22/18 06/22/18 13:44 13:44 14:40 WBC RBC Hgb Hct MCV MCH MCHC RDW Plt Count Neut % (Auto) Lymph % (Auto) [place] % (Auto) Eos % (Auto) Baso % (Auto) Neut # (Auto) PT INR APTT ABG pH ABG pCO2 ABG pO2 ABG HCO3 ABG Total CO2 ABG O2 Saturation ABG Base Excess FiO2 Sodium Potassium Chloride Carbon Dioxide BUN Creatinine Estimated GFR BUN/Creatinine Ratio Glucose Lactate Calcium Total Bilirubin AST ALT Alkaline Phosphatase Troponin I B-Natriuretic Peptide Total Protein Albumin Globulin Albumin/Globulin Ratio Lipase Procalcitonin Urine Color Yellow Urine Appearance Sl cloudy Urine pH 6.0 Ur Specific [place] 1.010 Urine Protein Negative Urine Glucose (UA) Negative Urine Ketones Negative Urine Occult Blood 2+ H Urine Nitrate Negative Urine Bilirubin Negative Urine Urobilinogen 0.2 Ur Leukocyte Esterase 2+ H Urine RBC 1-5/hpf Urine WBC 1-5/hpf Ur Squamous Epith Cells 0-1 /hpf Urine Bacteria Occasional (0-1) Ur Culture Indicated? Not Reportable Micro UA Comment Not Reportable Ur Random Sodium 89 Nasal Screen MRSA (PCR) Negative for mrsa 06/23/18 06/23/18 06/23/18 08:25 08:25 08:25 WBC 10.3 RBC 2.86 L Hgb 8.4 L Hct 25.7 L MCV 89.9 MCH 29.5 MCHC 32.8 RDW 18.5 H Plt Count 205 Neut % (Auto) 83.5 H Lymph % (Auto) 9.8 L [place] % (Auto) 5.0 Eos % (Auto) 1.2 L Baso % (Auto) 0.5 Neut # (Auto) 8600 H PT 93.8 H D INR 8.3 H* APTT ABG pH ABG pCO2 ABG pO2 ABG HCO3 ABG Total CO2 ABG O2 Saturation ABG Base Excess FiO2 Sodium 140 Potassium 5.0 Chloride 102 Carbon Dioxide 26 BUN 59 H Creatinine 1.80 H Estimated GFR 27.1 L BUN/Creatinine Ratio 32.8 H Glucose 100 Lactate Calcium 9.2 Total Bilirubin 0.6 AST 26 ALT 30 Alkaline Phosphatase 62 Troponin I B-Natriuretic Peptide Total Protein 6.6 Albumin 3.7 Globulin 2.9 Albumin/Globulin Ratio 1.3 Lipase Procalcitonin Urine Color Urine Appearance Urine pH Ur Specific [place] Urine Protein Urine Glucose (UA) Urine Ketones Urine Occult Blood Urine Nitrate Urine Bilirubin Urine Urobilinogen Ur Leukocyte Esterase Urine RBC Urine WBC Ur Squamous Epith Cells Urine Bacteria Ur Culture Indicated? Micro UA Comment Ur Random Sodium Nasal Screen MRSA (PCR) Assessment & Plan Plan: Assessment/Plan Narrative: 1. Acute hypoxic Respiratory failure - Improving, now patient is on 2L O2 saturating 98% - Likely in the setting of pulmonary edema vs PNA? - Lactate negative, leukocytosis improved, procalc negative - CXR reviewed which showed nodular opacities..could mean metastasis, infection , inflammation - Unable to get CT with IV contrast due to poor renal function, so will instead get CT chest without contrast - MRSA screen was negative: will start patient on Community acquired PNA at this time with Azithromycin and Ceftriaxone - Will Start lasix 40mg IV BID for proper diuresis - Blood cultures pending 2. Acute Diastolic CHF exacerbation - Not improving - Patient has crackles on chest exam as well 2+ BL pitting edema - BNP 590 on admission - ECHO reviewed: 60-65% EF, L ventricular hypertrophy, with apical hypokinesis - Resume Lasix 40mg IV BID and monitor UOP - Daily weights, I/O, Fluid restriction to 2500cc/day 3. Pancreatitis, mild - Source is yet to be determined - Lipase 461 with mild LUQ pain - Patient is able to tolerate PO, no nausea/vomiting - Will Get CT abdomen and US GB to rule out stones - Continue PO as tolerated, Pain control 4. Supratherapeutic INR - Improving, INR 8.3 today - Continue to hold coumadin and monitor INR daily 5. Acute Kidney Injury - Stable - Patient initially received Lasix IV and then was switched to IVF - Cr 1.8, BUN 59 - Will revert back to diuresis as patient may be in fluid overload - Monitor renal function - Urine osm pending. Will add on urine electrolytes and urea 6. History of chronic DVT - Continue to hold coumadin as INR is supratherapeutic - Since no active bleeding and no need for urgent reversal of INR, will monitor for now 7. CAD - Stable - Continue ASA, Plavix, Ezetemibe 25 min spent evaluating and providing care for this patient
[2018-06-23 10:59] LABS: PTT Partial Thromboplastin Tim 82 SECONDS (26.4-36.2)
[2018-06-23] MEDS: CEFTRIAXONE 1 GM/50 ML FROZ.PIGGY IV (11:13)
--- NOTE | 2018-06-23 12:11 | PC.NURSE ---
Addendum entered by Jaron Alvares R.N. 06/23/18 14:51: Cont with epistaxis. Some dried blood noted to l nare, mostly noted at r nare. Pt c/o dizziness. Hypotension noted. Called to MD. Orders received for STAT labs and 500 ML IVF Bolus x 1. Pt is AO x3 and understands plan of care. Original Note: Pt c/o nose bleed. Noted steady amount of trickling blood from R Nare. Applied ice to bridge of nose, loosely pack nare with gauze and applied humidity to O2. Placed call to Dr. Barcenas. Reported findings. Orders received for IV Vit K which she states is ok to give upon return from CT.
[2018-06-23] MEDS: PHYTONADIONE (VIT K1) 5 MG in DEXTROSE 5 % IN WATER 50 ML 101 ML IV ×2 (12:39→17:27)
[2018-06-23] MEDS: AZITHROMYCIN 500 MG in DEXTROSE 5% IN WATER 250 ML IV (13:11)
[2018-06-23] MEDS: FUROSEMIDE 40 MG/4 ML VIAL IV (13:12)
[2018-06-23] MEDS: SODIUM CHLORIDE 0.9% 500 ML 1000 ML IV (15:18)
[2018-06-23 15:23] LABS: Add Manual Diff / Slide Review NO; Basophils Percent Auto 0.5 % (0-2); Eosinophils Percent Auto 1.2 % (2-4); Hematocrit 23.5 % (36-46); Hemoglobin 7.6 g/dL (12.0-16.0); Lymphocytes Percent Auto 10.8 % (25-40); Mean Corpuscular HGB Conc 32.3 % (30-36); Mean Corpuscular Hemoglobin 29.1 PG (26-34); Mean Corpuscular Volume 90.2 fL (80-100); Monocytes Percent Auto 5.2 % (3-14); Neutrophils Absolute Auto 6900 /uL (3000-5900); Neutrophils Percent Auto 82.3 % (50-75); Platelet Count 170 X10^3/uL (150-400); Red Blood Cell Count 2.61 X10^6/uL (4.0-5.2); Red Cell Distribution Width 18.1 % (11.6-14.8); White Blood Cell Count 8.4 X10^3/uL (4.5-11.0)
[2018-06-23 15:38] LABS: Prothrombin Time 59.5 SECONDS (10.1-12.7)
[2018-06-23 15:47] LABS: INR 5.3 (0.9-1.3)
--- NOTE | 2018-06-23 17:11 | CM.DPC ---
Discharge Planning/Care Management DCP:assessment: case received, EMR reviewed and case discussed in Team Rounds. Pt is an 78 year old female who admitted yesterday afternoon to care of hospitalist team. She lives on [facility]. PCP: Dr. Mendez: Payer Medicare Dr. Barcenas noted in Rounds that the full dx and treatment plan were in process and that pt was quite ill. P: DCP team will be following as POC unfolds to meet with pt and/or advocates and assist with d/c issues and options as these become clearer. CM Discharge Assessment Start: 06/23/18 17:10 Freq: Status: Active Protocol: Document 06/23/18 17:10 ITV (Rec: 06/23/18 17:11 ITV [id number]) Discharge Planning Assessment History Provided By Medical Record Prior Living Arrangements Apartment/Condo Comment pending visit to the ICU/ICU staff have d/c buyer planner name and # Review Status In Process Next Review Type Continued Stay Review
[2018-06-23] MEDS: LACTOBACILLUS ACIDOPHILUS TABLET 1 EACH PO (17:30)
[2018-06-23] MEDS: OXYCODONE IR 5 MG TABLET 2.5 MG PO (20:25)
[2018-06-23] MEDS: PANTOPRAZOLE 40 MG VIAL IV (20:26)
[2018-06-23 21:23] LABS: Hematocrit 23.7 % (36-46); Hemoglobin 7.7 g/dL (12.0-16.0)
[2018-06-24] VITALS (26 sets, daily range): BP systolic 92–143; BP diastolic 56–75; PULSE 67–87; RESP 14–24; TEMP 35.8–36.7; O2SAT 83–100
[2018-06-24] MEDS: FUROSEMIDE 40 MG/4 ML VIAL IV (00:23)
[2018-06-24 05:10] LABS: Add Manual Diff / Slide Review NO; Basophils Percent Auto 0.5 % (0-2); Eosinophils Percent Auto 2.3 % (2-4); Hematocrit 21.5 % (36-46); Hemoglobin 7.1 g/dL (12.0-16.0); Lymphocytes Percent Auto 14.8 % (25-40); Mean Corpuscular HGB Conc 32.8 % (30-36); Mean Corpuscular Hemoglobin 29.2 PG (26-34); Mean Corpuscular Volume 89.2 fL (80-100); Monocytes Percent Auto 8.3 % (3-14); Neutrophils Absolute Auto 5400 /uL (3000-5900); Neutrophils Percent Auto 74.1 % (50-75); Platelet Count 153 X10^3/uL (150-400); Red Blood Cell Count 2.41 X10^6/uL (4.0-5.2); Red Cell Distribution Width 17.9 % (11.6-14.8); White Blood Cell Count 7.3 X10^3/uL (4.5-11.0)
[2018-06-24 05:11] LABS: INR 1.3 (0.9-1.3)
[2018-06-24 05:16] LABS: BUN Creatinine Ratio 30.5 (6-22); Blood Urea Nitrogen 61 mg/dL (7-17); Calcium 9.4 mg/dL (8.4-10.2); Carbon Dioxide 29 mmol/L (22-32); Chloride 99 mmol/L (98-107); Glucose 101 mg/dL (80-110); HEMOLYSIS < 15 (0-50); Potassium 4.9 mmol/L (3.4-5.1); Sodium 136 mmol/L (137-145)
[2018-06-24 05:27] LABS: Prothrombin Time 14.5 SECONDS (10.1-12.7)
[2018-06-24 05:28] LABS: PTT Partial Thromboplastin Tim 33 SECONDS (26.4-36.2)
--- NOTE | 2018-06-24 06:04 | PC.NURSE ---
Addendum entered by Nicole Ambriz R.N. 06/24/18 06:11: 0545 Current H&H 7.1/21.5 drop from 2100 value. No active bleeding through shift, VSS. Pt denies ABD pain. INR reversed post FFP transfusion to 1.3. Dr. Joe notified of current H&H, orders received to give 2 units RBC's slow when available. Original Note: NOC Shift: Pt AAOx3. Receiving FFP X4 units this evening for bleeding risk, INR over 10 on admit. No active bleeding at this time, pt continues to have ABD pain intermittantly at rest, has BT's. VSS, SR BBB, 1 AVB vs. paced has known pacemaker difficulty capturing pacer spikes at this time. Pt having current bladder pain w/acute urinary retention. Bladder scanned for over [address] Barcenas notified, and larios catheter placed for retention and accurate I&O's for CHF treatment. Pt on 3L NC humidified, SOB at rest when speaking or with activity. Sats stable, BS fine crackles in bases. HL when FFP completed.
[2018-06-24] MEDS: LORazepam 2 MG/ML SYRINGE 0.5 MG IV ×2 (08:04→13:41)
[2018-06-24] MEDS: LACTOBACILLUS ACIDOPHILUS TABLET 1 EACH PO ×2 (08:05→17:08)
[2018-06-24] MEDS: CHOLECALCIFEROL (VITAMIN D3) 1,000 UNIT TABLET 2000 UNIT PO (08:05)
[2018-06-24] MEDS: ACETAMINOPHEN 325 MG TABLET 975 MG PO ×2 (08:05→20:52)
[2018-06-24] MEDS: EZETIMIBE 10 MG TABLET PO (08:05)
[2018-06-24] MEDS: CALCIUM CARBONATE 600 MG TABLET 1200 MG PO (08:06)
[2018-06-24] MEDS: PANTOPRAZOLE 40 MG VIAL IV ×2 (08:06→19:48)
[2018-06-24] MEDS: HYDRALAZINE 25 MG TABLET 12.5 MG PO ×3 (08:07→20:52)
[2018-06-24] MEDS: CARVEDILOL 12.5 MG TABLET PO ×2 (08:07→20:52)
--- NOTE | 2018-06-24 08:36 | P.PN_ITS ---
Subjective Date Patient Seen: 06/24/18 Time Patient Seen: 08:33 Interval history: FOLLOW UP ON ACUTE HYPOXIC RESPIRATORY FAILURE IN SETTING OF FLUID OVERLOAD VS PNA AND ABDOMINAL PAIN, WELL SUPRATHERAPEUTIC INR WITH ASSOCIATED MUCOSAL NASAL BLEEDING Patient seen at bedside. Yesterday in the midday patient developed nasal bleeding. INR repeated at that time was 5.3. Her BP also dropped to 80s/50s ( however she did get Lasix 40mg IV in the morning). Hb was 7.6, a drop from 8.4 in am. Guaic in stool from morning was negative. Patient was given 500cc NS Bolus, Vitamin K IV 10mg, and 4 bags of FFP. Hb again repeated at 2100 were stable at 7.7, but dropped to 7.1 this morning. Therefore, 2U PRBC were ordered. BP remains stable. This morning patient is complaining of headache and arthritic discomfort. She is slightly anxious. No nausea/vomiting. Exam Vital Signs (past 8 hours): - 06/24/18 01:30 06/24/18 04:00 06/24/18 05:09 Temperature 98.0 F Pulse Rate 78 Respiratory Rate 20 Blood Pressure 121/61 Pulse Oximetry 98 100 95 06/24/18 08:06 Temperature 97 F L Pulse Rate 87 Respiratory Rate 20 Blood Pressure 117/61 Pulse Oximetry 97 Oxygen Delivery Method Nasal Cannula,Humidification Oxygen Flow Rate 3 Narrative Exam Narrative: Gen: Slightly anxious, AAOx3 HEENT: PERRLA BL, EOMI BL. O2 2L in place saturating 98% Neck: Supple, no JVD Resp: Coarse breath sounds appreciated in all lung de la cruz but aeration is improving CV: RRR, no murmurs or gallops GI: +BS, soft, nontender, obese MSK: moves all ext Skin: 2+ pitting edema up to knees appreciated, unchanged Objective Labs Result Diagrams: 06/24/18 04:51 06/24/18 04:51 Labs: Laboratory Results - last 24 hr 06/23/18 06/23/18 06/23/18 08:25 08:25 08:25 WBC 10.3 RBC 2.86 L Hgb 8.4 L Hct 25.7 L MCV 89.9 MCH 29.5 MCHC 32.8 RDW 18.5 H Plt Count 205 Neut % (Auto) 83.5 H Lymph % (Auto) 9.8 L [place] % (Auto) 5.0 Eos % (Auto) 1.2 L Baso % (Auto) 0.5 Neut # (Auto) 8600 H PT 93.8 H D INR 8.3 H* APTT 82 H* Sodium 140 Potassium 5.0 Chloride 102 Carbon Dioxide 26 BUN 59 H Creatinine 1.80 H Estimated GFR 27.1 L BUN/Creatinine Ratio 32.8 H Glucose 100 Calcium 9.2 Total Bilirubin 0.6 AST 26 ALT 30 Alkaline Phosphatase 62 Total Protein 6.6 Albumin 3.7 Globulin 2.9 Albumin/Globulin Ratio 1.3 Blood Type Antibody Screen Crossmatch 06/23/18 06/23/18 06/23/18 15:00 15:00 15:00 WBC 8.4 RBC 2.61 L Hgb 7.6 L Hct 23.5 L MCV 90.2 MCH 29.1 MCHC 32.3 RDW 18.1 H Plt Count 170 Neut % (Auto) 82.3 H Lymph % (Auto) 10.8 L [place] % (Auto) 5.2 Eos % (Auto) 1.2 L Baso % (Auto) 0.5 Neut # (Auto) 6900 H PT 59.5 H D INR 5.3 H* APTT Sodium Potassium Chloride Carbon Dioxide BUN Creatinine Estimated GFR BUN/Creatinine Ratio Glucose Calcium Total Bilirubin AST ALT Alkaline Phosphatase Total Protein Albumin Globulin Albumin/Globulin Ratio Blood Type O Positive Antibody Screen Negative Crossmatch See Detail 06/23/18 06/24/18 06/24/18 21:14 04:51 04:51 WBC 7.3 RBC 2.41 L Hgb 7.7 L 7.1 L Hct 23.7 L 21.5 L MCV 89.2 MCH 29.2 MCHC 32.8 RDW 17.9 H Plt Count 153 Neut % (Auto) 74.1 Lymph % (Auto) 14.8 L [place] % (Auto) 8.3 Eos % (Auto) 2.3 Baso % (Auto) 0.5 Neut # (Auto) 5400 PT 14.5 H D INR 1.3 APTT 33 D Sodium Potassium Chloride Carbon Dioxide BUN Creatinine Estimated GFR BUN/Creatinine Ratio Glucose Calcium Total Bilirubin AST ALT Alkaline Phosphatase Total Protein Albumin Globulin Albumin/Globulin Ratio Blood Type Antibody Screen Crossmatch 06/24/18 04:51 WBC RBC Hgb Hct MCV MCH MCHC RDW Plt Count Neut % (Auto) Lymph % (Auto) [place] % (Auto) Eos % (Auto) Baso % (Auto) Neut # (Auto) PT INR APTT Sodium 136 L Potassium 4.9 Chloride 99 Carbon Dioxide 29 BUN 61 H Creatinine 2.00 H Estimated GFR 24.0 L BUN/Creatinine Ratio 30.5 H Glucose 101 Calcium 9.4 Total Bilirubin AST ALT Alkaline Phosphatase Total Protein Albumin Globulin Albumin/Globulin Ratio Blood Type Antibody Screen Crossmatch Assessment & Plan Plan: Assessment/Plan Narrative: 1. Supratherapeutic INR - With associated mucosal nasal bleeding that has since resolved - INR 1.3 s/p Vitamin K and FFP - Continue to hold coumadin as patient's Hb is 7.1. Will give PRBC and if Hb is stable, will consider resuming coumadin once risks/benefits are reassessed 2. Acute hypoxic Respiratory failure - Improving, on 2L O2 saturating 98% - Likely in the setting of atypical PNA - Lactate negative, leukocytosis improved, procalc negative - CXR reviewed which showed nodular opacities..could mean metastasis, infection , inflammation - CT chest showed Extensive nodular and distinctly marginated multifocal airspace disease is present involving the upper and lower lungs bilaterally. A cavitary lesion is not associated. The appearance is nonspecific but is considered likely a manifestation of atypical pneumonia - Continue Azithromycin and Ceftriaxone at this time - Blood cutlures negative, unable to produce sputum 3. Acute Diastolic CHF exacerbation - Not improving, as patient becomes too intravascularly dehydrated with Lasix 40mg IV BID and BP drops - Continues to have 2+ BL pitting edema - BNP 590 on admission - ECHO reviewed: 60-65% EF, L ventricular hypertrophy, with apical hypokinesis - Will decrease Lasix to 20mg IV BID may consider small IVF hydration to keep intravascular volume while diuresing - Daily weights, I/O, Fluid restriction to 2500cc/day 4. Pancreatitis, mild - Source is yet to be determined - Lipase 461 with mild LUQ pain - CT abd reviewed: multiple moderate size gallstones within the gallbladder lumen without evidence of acute cholecystitis or biliary obstruction. - Patient is able to tolerate PO, no nausea/vomiting - US GB to rule out stones dislodgement pending - Continue PO as tolerated but will switch to CLD in light of mucosal bleed, Pain control 5. Acute Kidney Injury - Worsening - Cr 2.0, BUN 61 - Will decrease diuresis to 20mg IV BID and consider mild hydration after blood transfusion 6. History of chronic DVT - Was on coumadin which we are holding now that she developed mucosal bleed - Will reassess risk for thrombosis after bleeding has resolved and if needed, resume warfarin 7. CAD - Stable - Continue Ezetemibe. Hold ASA with recent bleed 8. Acute blood loss anemia - Hb this am 7.1, which dropped from 8.4 yesterda morning - Will transfuse 2U PRBC - Mont[place] H/H Q6H 25 min spent evaluating and providing care for this patient
[2018-06-24] MEDS: SODIUM CHLORIDE NASAL SPRAY 1 SPRAY NASAL (10:09)
[2018-06-24] MEDS: CEFTRIAXONE 1 GM/50 ML FROZ.PIGGY IV (11:22)
[2018-06-24] MEDS: FUROSEMIDE 20 MG/2 ML VIAL IV (11:22)
[2018-06-24] MEDS: AZITHROMYCIN 500 MG in DEXTROSE 5% IN WATER 250 ML IV (12:06)
[2018-06-24] MEDS: ONDANSETRON 4 MG/2 ML INJ IV ×2 (12:58→19:49)
--- NOTE | 2018-06-24 13:58 | PC.NURSE ---
Pt consumed about 120 ML of tea at lunch time. Afterwards, she complained of nausea and requested an emesis bag. Administered zofran per order and repositioned pt for comfort. Med was ineffective. Notified MD and received orders for 0.5 mg Ativan IV now x 1 dose. Post administration, pt stated nausea was greatly decreased. Currently receiving second unit of PRBCs. Will monitor.
--- NOTE | 2018-06-24 15:13 | CM.DPC ---
DCP Cont: Spoke to patient's daughter. Stated that she lives with her on [facility], but she is not always home, for she has a job on the [employer] as well. Stated that her mom has required some care at home. Daughter stated she is stand by for bathing. Uses a front wheel walker. Discussed skilled rehab, as daughter thinks that this may be a good idea. Stated will depend if patient consents to go. Stated that home health may be an option as well. P: DCP to continue to assess, and will follow patient closely. Della Dale RN/Book Reviewer
[2018-06-24] MEDS: NYSTATIN POWDER 30 GM 1 APPLIC TOP (15:28)
[2018-06-24 17:01] LABS: Osmolality Urine 354 mosm/kg (220-1300)
[2018-06-24 17:08] LABS: Hematocrit 27.6 % (36-46); Hemoglobin 9.1 g/dL (12.0-16.0)
[2018-06-24] MEDS: OXYCODONE IR 5 MG TABLET 2.5 MG PO (20:51)
[2018-06-25] VITALS (24 sets, daily range): BP systolic 117–148; BP diastolic 66–90; PULSE 71–85; RESP 13–27; TEMP 35.7–36.6; O2SAT 88–99
[2018-06-25] MEDS: FUROSEMIDE 20 MG/2 ML VIAL IV (00:04)
[2018-06-25 05:19] LABS: Add Manual Diff / Slide Review NO; Basophils Percent Auto 0.5 % (0-2); Eosinophils Percent Auto 1.8 % (2-4); Hematocrit 27.3 % (36-46); Hemoglobin 9.1 g/dL (12.0-16.0); Lymphocytes Percent Auto 13.4 % (25-40); Mean Corpuscular HGB Conc 33.5 % (30-36); Mean Corpuscular Volume 89.6 fL (80-100); Neutrophils Absolute Auto 6000 /uL (3000-5900); Neutrophils Percent Auto 76.3 % (50-75); Platelet Count 172 X10^3/uL (150-400); Red Blood Cell Count 3.04 X10^6/uL (4.0-5.2); Red Cell Distribution Width 17.3 % (11.6-14.8); White Blood Cell Count 7.8 X10^3/uL (4.5-11.0)
[2018-06-25 05:28] LABS: BUN Creatinine Ratio 32.6 (6-22); Blood Urea Nitrogen 62 mg/dL (7-17); Calcium 9.7 mg/dL (8.4-10.2); Carbon Dioxide 26 mmol/L (22-32); Chloride 99 mmol/L (98-107); Estimated Glomerular Filt Rate 25.4 mL/min (>60); Glucose 89 mg/dL (80-110); HEMOLYSIS < 15 (0-50); Potassium 4.7 mmol/L (3.4-5.1); Sodium 135 mmol/L (137-145)
--- NOTE | 2018-06-25 07:04 | PC.NURSE ---
NOC Shift: Pt rested well throughout shift, however continues to have increased O2 needs especially when speaking and participating in ADL activity. Currently on 4L NC stable sats while asleep, desats quickly w/activity. BS remain coarse. VSS. H&H, INR remain stable today post transfusions. Davy. Needs PT consult to increase mobility conditioning post Left hip replacement in November that has not recovered completely. F/C tele status.
[2018-06-25] MEDS: HYDRALAZINE 25 MG TABLET 12.5 MG PO ×3 (08:22→21:30)
[2018-06-25] MEDS: CHOLECALCIFEROL (VITAMIN D3) 1,000 UNIT TABLET 2000 UNIT PO (08:24)
[2018-06-25] MEDS: EZETIMIBE 10 MG TABLET PO (08:25)
[2018-06-25] MEDS: LACTOBACILLUS ACIDOPHILUS TABLET 1 EACH PO ×2 (08:25→16:19)
[2018-06-25] MEDS: CARVEDILOL 12.5 MG TABLET PO ×2 (08:25→21:27)
[2018-06-25] MEDS: ACETAMINOPHEN 325 MG TABLET 975 MG PO ×2 (08:27→21:25)
[2018-06-25] MEDS: CALCIUM CARBONATE 600 MG TABLET 1200 MG PO (08:29)
[2018-06-25] MEDS: PANTOPRAZOLE 40 MG VIAL IV ×2 (08:30→21:25)
--- NOTE | 2018-06-25 10:24 | P.PN_ITS ---
Subjective Date Patient Seen: 06/25/18 Time Patient Seen: 10:22 Interval history: FOLLOW UP ON ACUTE HYPOXIC RESPIRATORY FAILURE IN SETTING OF FLUID OVERLOAD VS PNA FOLLOW UP ON ABDOMINAL PAIN FOLLOW UP ON MUCOSAL BLEEDING Patient seen at bedside. She is doing better however she is still requiring NC O2 for movement and even in bed. No more bleeding noted. Received transfusion yesterday. INR normalized by coumadin on hold. No more abdominal pain she would like to eat. going back into positive fluid status. No nausea/vomiting this morning. Exam Vital Signs (past 8 hours): - 06/25/18 02:42 06/25/18 03:51 06/25/18 04:01 Temperature 97.6 F Pulse Rate 74 Respiratory Rate 21 Blood Pressure 140/66 Pulse Oximetry 98 99 97 06/25/18 06:08 06/25/18 07:33 06/25/18 07:38 Temperature 97.2 F L Pulse Rate 78 Respiratory Rate 21 Blood Pressure 120/90 Pulse Oximetry 97 96 97 06/25/18 07:46 06/25/18 08:22 06/25/18 08:25 Temperature Pulse Rate 82 85 Respiratory Rate Blood Pressure 118/66 118/66 Pulse Oximetry 88 L Oxygen Delivery Method Nasal Cannula Oxygen Flow Rate 1 Narrative Exam Narrative: Exam Narrative: Gen: Slightly anxious, AAOx3 HEENT: PERRLA BL, EOMI BL. O2 2L in place saturating 98% Neck: Supple, no JVD Resp: Coarse breath sounds appreciated in all lung de [place] cruz but aeration is improving CV: RRR, no murmurs or gallops GI: +BS, soft, nontender, obese MSK: moves all ext Skin: pitting edema is resolving Objective Labs Result Diagrams: 06/25/18 04:45 06/25/18 04:45 Labs: Laboratory Results - last 24 hr 06/22/18 06/23/18 06/24/18 13:44 15:00 17:00 WBC RBC Hgb 9.1 L Hct 27.6 L MCV MCH MCHC RDW Plt Count Neut % (Auto) Lymph % (Auto) [place] % (Auto) Eos % (Auto) Baso % (Auto) Neut # (Auto) Sodium Potassium Chloride Carbon Dioxide BUN Creatinine Estimated GFR BUN/Creatinine Ratio Glucose Calcium Urine Osmolality 354 Blood Type O Positive Antibody Screen Negative Crossmatch See Detail 06/25/18 06/25/18 04:45 04:45 WBC 7.8 RBC 3.04 L Hgb 9.1 L Hct 27.3 L MCV 89.6 MCH 30.0 MCHC 33.5 RDW 17.3 H Plt Count 172 Neut % (Auto) 76.3 H Lymph % (Auto) 13.4 L [place] % (Auto) 8.0 Eos % (Auto) 1.8 L Baso % (Auto) 0.5 Neut # (Auto) 6000 H Sodium 135 L Potassium 4.7 Chloride 99 Carbon Dioxide 26 BUN 62 H Creatinine 1.90 H Estimated GFR 25.4 L BUN/Creatinine Ratio 32.6 H Glucose 89 Calcium 9.7 Urine Osmolality Blood Type Antibody Screen Crossmatch Assessment & Plan Plan: Assessment/Plan Narrative: 1. Supratherapeutic INR - Resolved 2. Acute hypoxic Respiratory failure - Improving, on 2L O2 saturating 98% - Likely in the setting of atypical PNA - Lactate negative, leukocytosis resolved, procalc negative - CXR reviewed which showed nodular opacities..could mean metastasis, infection , inflammation - CT chest showed Extensive nodular and distinctly marginated multifocal airspace disease is present involving the upper and lower lungs bilaterally. A cavitary lesion is not associated. The appearance is nonspecific but is considered likely a manifestation of atypical pneumonia - Continue Azithromycin and Ceftriaxone at this time - Blood cutlures negative, unable to produce sputum 3. Acute Diastolic CHF exacerbation - Improving clinically, but in positive fluid balance still - BNP 590 on admission - ECHO reviewed: 60-65% EF, L ventricular hypertrophy, with apical hypokinesis - Will decrease Lasix to 40mg IV BID - Daily weights, I/O, Fluid restriction to 2500cc/day 4. Pancreatitis, mild - Resolving, pain is gone - Lipase 461 on admission - US showed cholelithiasis but no cholecystitis or impacting stone - CT abd reviewed: multiple moderate size gallstones within the gallbladder lumen without evidence of acute cholecystitis or biliary obstruction. - Patient is able to tolerate PO, no nausea/vomiting - Continue PO diet as tolerated 5. Acute Kidney Injury - Improving with diuresis - Cr 1.9, BUN 62 - Continue Lasix 40mg IV BID 6. History of chronic DVT - Was on coumadin which we are holding now that she developed mucosal bleed - Will reassess risk for thrombosis after bleeding has resolved and if needed, resume warfarin 7. CAD - Stable - Continue Ezetemibe. Hold ASA with recent bleed 8. Acute blood loss anemia - Hb improved after transfusion, now 9.1 - Continue to monitor 25 min spent evaluating and providing care for this patient
[2018-06-25] MEDS: NYSTATIN POWDER 30 GM 1 APPLIC TOP ×2 (10:30→18:36)
--- NOTE | 2018-06-25 10:51 | CM.DPC ---
Addendum entered by Della Dale R.N. 06/25/18 12:03: Went ahead and updated [facility] at [facility] if patient chooses this facility. Original Note: DCP Cont: Spoke with patient. Discussed long-term after discharge. Patient was reluctant at first, and wanted to go home. After discussing with nurse, patient is open to long-term for short term stay. Gave her a Medicare choice list to review. Will look it over and discuss with daughter. P: DCP to follow closely, skilled may be appropriate for patient for short term stay. Della Dale RN/Director Software Development
[2018-06-25] MEDS: CEFTRIAXONE 1 GM/50 ML FROZ.PIGGY IV (11:37)
[2018-06-25] MEDS: FUROSEMIDE 40 MG/4 ML VIAL IV (11:37)
--- NOTE | 2018-06-25 11:52 | PC.NURSE ---
pt tearful intermittently about vague things- unable to pinpoint what is upsetting to her. She is resistant to getting up from bed and increasing mobility- but did work with pt and ended up in chair- after approx 20 minutes she requested to get back to bed and this RN encouraged her to stay in chair for lunchtime meal. Her skin under breasts looks better but under abd folds still red/angry/ and quite sensitive for pt- spoke at length about the potential need for rehab prior to returning to her daughters home on [facility] [facility] [facility]
--- NOTE | 2018-06-25 12:03 | PT.IIE ---
Current Diagnoses Hypoxemia (06/22/18) Abnormal coagulation profile (06/22/18) Surgical History (Last Reviewed 06/22/18 @ 11:21 by Shashank Aragon DO) History of permanent cardiac pacemaker placement (Acute) Medical History (Last Reviewed 06/22/18 @ 11:21 by Shashank Aragon DO) Congestive heart failure of unknown etiology (Acute) Coronary artery disease (Acute) Physical Therapy Inpatient Evaluation/Re-Eval M1 PT/OT-IP Prior Functional Status Start: 06/25/18 11:38 Freq: NEEDED Status: Active Protocol: Document 06/25/18 10:30 [facility] (Rec: 06/25/18 12:02 [facility] [id number]) Medical Review Prior Functional Status Medical History Reviewed Yes Communication WNL Mobility and Gait Pt uses 4WW at home and amb short distances around their small house. Reports the maximum she travels is about 40ft at a time Activities of Daily Living and IADL's She makes some meals but doesn 't do dishes. Pt reports her requires help from her dgt to lift her leg over the tub. She only travels outside of the home with her dgt help. Social History Household Members children Living Arrangements Apartment/Condo Number of Floors (Floors) One Floor Number of Stairs To Enter/Railing? ramp entry Home Environment Standard Height Toilet Tub/Shower Home Equipment Four Wheel Walker Manual Wheelchair Bedside Commode Tub Transfer Bench Additional Social History Comment dgt is not always home with pt M2 PT-IP Current Condition Start: 06/25/18 11:38 Freq: NEEDED Status: Active Protocol: Document 06/25/18 10:30 [facility] (Rec: 06/25/18 12:02 [facility] [email or web address]) Physical Therapy Current Condition Current Condition Evaluation Date 06/25/18 Treatment Diagnosis SOB, weakness M3 PT-IP Subjective Start: 06/25/18 11:38 Freq: NEEDED Status: Active Protocol: Document 06/25/18 10:30 [facility] (Rec: 06/25/18 12:02 [facility] [email or web address]) Subjective Physical Therapy Visit Type Type Initial Evaluation Visit Start Time 10:00 Visit Stop Time 10:27 Total Visit Minutes 27 Number of SPRAY DRY OPERATOR Visits 0 Physical Therapy Visit Comments Patient Goals Pt is hoping to go home and not to rehab Therapy Pain Assessment Pain When Pain Assessed At Rest M4 PT-IP Mobility and Gait Start: 06/25/18 11:38 Freq: NEEDED Status: Active Protocol: Document 06/25/18 10:30 [facility] (Rec: 06/25/18 12:02 [facility] [email or web address]) PT-Bed Mobility Assessment Supine to Sit Supine to Sit Moderate Assistance Head of Bed Elevated Bedrails Scooting Scooting to Edge of Bed Contact Guard Assistance PT-Transfer Assessment Sit to and From Stand Sit to and from Stand Contact Guard Assistance Equipment Transfer Assistive Device Gait Belt Front Wheeled Walker Orthotic/Prosthetic Devices or Brace: No Transfers Transfer Destination Chair Transfer Technique Stand Step Pivot Transfer Ability Level of Assist Minimal Assistance Comments Mobility Comments Pt O2 dropped to 86% during transfer and 81% after transfer. Pt is improved with pt talking as she was anxious during focus of deep breathing . PT-Balance Assessment Sitting Balance and Reactions Static Sitting Balance Ability Fair Dynamic Sitting Balance Ability Fair Standing Balance and Reactions Static Standing Balance Ability Fair Dynamic Standing Balance Ability Fair M5 PT-IP Objective Assessments Start: 06/25/18 11:38 Freq: NEEDED Status: Active Protocol: Document 06/25/18 10:30 [facility] (Rec: 06/25/18 12:02 [facility] [email or web address]) Orientation Orientation/Cognition Level of Alertness Alert Strength Lower Extremity Strength Assessment Bilaterally Impaired M7 PT-IP Assessment and Plan Start: 06/25/18 11:38 Freq: NEEDED Status: Active Protocol: Document 06/25/18 10:30 [facility] (Rec: 06/25/18 12:02 [facility] [email or web address]) PT Summary Assessment and Plan Potential Rehabilitation Potential Good Status of Condition at Evaluation Evolving Summary Impairments Pain Strength Balance Bed Mobility Transfers Gait Activity Tolerance Assessment Summary Pt Goals Bed Mobility Goal Contact Guard Assistance Transfer Goal Standby Assistance Gait Goal Standby Assistance Gait Distance 60 Days to Meet Goals 3 Frequency of Treatment Frequency Of Treatment Twice a Day Treatment Plan Physical Therapy Treatment Plan Bed Mobility Training Transfer Training Gait Training Therapeutic Exercise Balance Retraining Discharge Planning Recommendations To Nursing Amount of Assist Needed 1 Person Assist Discharge Recommendations PT Discharge Recommendations Home with Assistance Home Health SNF Rehab Other Discharge Recommendations Depending on pt's progress, she may require SNF rehab as dgt is not home at all times to help her. At this time pt would require 24/7 assistance
[2018-06-25] MEDS: AZITHROMYCIN 500 MG in DEXTROSE 5% IN WATER 250 ML IV (12:33)
--- NOTE | 2018-06-25 15:15 | OT.IP.EVAL ---
Current Diagnoses Hypoxemia (06/22/18) Abnormal coagulation profile (06/22/18) Past Medical History (Last Reviewed 06/22/18 @ 11:21 by Shashank Aragon DO) Congestive heart failure of unknown etiology (Acute) Coronary artery disease (Acute) Surgical History (Last Reviewed 06/22/18 @ 11:21 by Shashank Aragon DO) History of permanent cardiac pacemaker placement (Acute) Occupational Therapy Inpatient Evaluation/Re-Eval M1 PT/OT-IP Prior Functional Status Start: 06/25/18 11:38 Freq: NEEDED Status: Active Protocol: Document 06/25/18 15:15 PJM (Rec: 06/25/18 15:51 PJM [id number]) Medical Review Prior Functional Status Medical History Reviewed Yes: Pt s/p transfusion 06/24 due to mucousal bleeding from supratherapeutic INR. Diet/Fluid Consistency Regular Communication WNL Mobility and Gait Pt uses 4WW at home and amb short distances around their small house. Reports the maximum she travels is about 40ft at a time. Pt uses manual w/c for community mobility. Activities of Daily Living and IADL's Pt independent with grooming standing at sink, donning shirt, skirt and underpants with porcelain enameling supervisor. Daughter assists with socks and shoes. Pt states she is indep with toileting, and seated bathing once daughter assists her onto transfer tub bench. Prior Functional Level (Other details) Pt makes self light meal such as a sandwich while daughter works. Daughter works 4-5 days /week and is gone 4-6 hrs at a time Daughter does all other cooking, shopping, lead quality technician. Pt manages won finances and daughter supervises medications. Pt no longer drives, Social History Household Members children Living Arrangements Apartment/Condo Number of Floors (Floors) One Floor Number of Stairs To Enter/Railing? ramp entry Home Environment Standard Height Toilet Tub/Shower Ramp Home Equipment Four Wheel Walker Manual Wheelchair Bedside Commode Tub Transfer Bench Mixed Livestock Farmer Employment Status Retired Additional Social History Comment Pt uses BSC over toilet to increase height and provide armrests. M2 OT-IP Current Condition Start: 06/25/18 15:29 Freq: Status: Active Protocol: Document 06/25/18 15:15 PJM (Rec: 06/25/18 15:51 PJM [id number]) Occupational Therapy Current Condition Current Condition Evaluation Date 06/25/18 Treatment Diagnosis decreased self care, functional mobility due to atypical PNA w/resp failure Diagnosis Onset Date 06/22/18 Post Operative Precautions Other Precautions fall risk, O2 2L, monitor O2 sats M3 OT- IP Subjective and Pain Start: 06/25/18 15:29 Freq: Status: Active Protocol: Document 06/25/18 15:15 PJVish (Rec: 06/25/18 15:[address] [facility] [id number]) OT- Subjective Occupational Therapy Visit Type Type Initial Evaluation Visit Start Time 14:55 Visit Stop Time 15:15 Total Visit Minutes 20 Occupational Therapy Visit Comments Patient Comments Pt fatigued and states it hurts my chest to talk. O2 sats 88-91 with conversation on 2L O2 via NC. Patient/Caregiver Goals to go home OT Pain Assessment Pain When Pain Assessed After Treatment Pain Present Pain Present Pain Reported Location Chest Intensity 4 Scale Used Numeric (1 - 10) Description Aching M4 OT- IP ADL's Start: 06/25/18 15:29 Freq: Status: Active Protocol: Document 06/25/18 15:15 PJVish (Rec: 06/25/18 15:[address] [facility] [id number]) OT TLA-[id number]-[id number] General Evaluation Self-Feeding Ability Independent Comments OT Self-Feeding Comments after set up in bed or chair per RN OT ADL-Grooming General Evaluation Grooming Ability Standby Assistance Areas Needing Assistance Face Washing Comments OT Grooming Comments after set up in bed OT ADL-Oral Care Comments Oral Care Comments did not occur this session OT ADL-Dressing General Eval Upper Body Dressing Ability Minimal Assistance Lower Body Dressing Ability Maximum Assistance OT ADL-Toileting General Evaluation Toileting Ability Total Assistance Areas Needing Assistance Empty Catheter or Colostomy Comments OT Toileting Comments pt has larios in place OT ADL-Bathing Bathing Type Bathing Type Sponge Bath General Evaluation Bathing Ability Maximal Assistance M5 OT- IP IADL's Start: 06/25/18 15:29 Freq: Status: Active Protocol: Document 06/25/18 15:15 PJVish (Rec: 06/25/18 15:[address] [facility] [id number]) OT-Instrumental Activities of Daily Living Deficits IADL Deficits Identified Deficits Home Safety Awareness Awareness of Need for Assistance at Home Good Awareness Ability to Problem Solve Emergency Able to Problem Solve Situations Medication Management Medication Management Caregiver Provides Supervision Money Management Money Management No Deficits Identified Money Management Comments pt states she manages own finances Meal Preparation Meal Preparation Caregiver Provides Assist Nitroglycerin Supervisor Nitroglycerin Supervisor Caregiver Provides Assist Driving Driving Caregiver Provides Assist M6 OT- IP Functional Cognition Start: 06/25/18 15:29 Freq: Status: Active Protocol: Document 06/25/18 15:15 PJM (Rec: 06/25/18 15:51 PJM [id number]) Cognitive Factors Limiting Selfcare Function Cognitive Ability Level of Alertness Drowsy Patient Orientation Name Age Birthday Month Date Year Day of Week Place Situation Attention Span Ability Capable of Focused Attention Ability to Follow Commands Able to Follow One Step Commands Cognitive Comments Cognitive Assessment Comments Pt appears to have anxiety overlay OT- Vision and Hearing OT- Hearing Assessment OT- Hearing Assessment WFL OT- Vision Assessment Visual Acuity WFL Glasses All The Time Vision Assessment Comments Pt able to standard book print and wall clock with glasses. M7 OT- IP Mobility and Balance Start: 06/25/18 15:29 Freq: Status: Active Protocol: Document 06/25/18 15:15 PJM (Rec: 06/25/18 15:51 PJ [id number]) OT-Transfer Assessment Comments Mobility Comments See P.T. report OT- Gait Assessment Comments Gait Ability Comments See P.T. report OT- Balance Assessment Comments Other Balance Tests/Deviations/Treatment See P.T. report : M8 OT- IP Objective Assessments Start: 06/25/18 15:29 Freq: Status: Active Protocol: Document 06/25/18 15:15 PJM (Rec: 06/25/18 15:51 PJ [id number]) OT Gross Range of Motion Upper Extremity Range of Motion Assessment Within Functional Limits ROM Impairments B shoulder scaption limited to about 90 degrees by stiffness . OT Strength Upper Extremity Strength Assessment Within Functional Limits Hand Frame Assembler Strength Hand Dominance Right OT- Coordination Assessment Comments Coordination Comments BUE appears WFL OT-Muscle Tone Assessment Muscle Tone WNL Yes OT Sensation Assessment Comments Summary Comments pt reports slight numbness in fingertips of B hands and in B feet Edema Edema Absent M9 OT- IP Assessment and Plan Start: 06/25/18 15:29 Freq: Status: Active Protocol: Document 06/25/18 15:15 PJM (Rec: 06/25/18 15:51 PJM [id number]) OT Summary Assessment and Plan Potential Analytic Complexity at Evaluation Moderate Summary OT Impairments Pain Strength Balance Functional Mobility Grooming Dressing Toileting Bathing Toilet Transfers Shower Transfers Assessment Summary Moderate complexity OT assessment completed due to pt 's co morbidities and need to monitor O2 sats with anxiety overlay. O2 sats 93-94 at rest and decrease to 88-91 with conversation on 2L O2 NC this session. Pt presents with significant performance deficits in activity tolerance , all functional mobility/ transfers, standing tolerance for grooming and light meal prep, dressing, bathing, and toileting. Pt needs to be independent with sit to stand and ambulation 40 ft, toileting and light meal prep to return home, as her daughter works floral department specialist and pt is home alone up to 6 hrs at a time several days/week. Pt currently needs 24/ assist. Pt may need SNF prior to return home pending progress and daughter's ability to provide sufficient assist to pt. If pt d/c's home , recommend HH OT/PT services. Goals Grooming Goal Standby Assistance Dressing Goal Standby Assistance Long Handled Shoe Horn Sock Aid Toileting Goal Independent Bathing Goal Standby Assistance Toilet Transfer Goal Independent Raised Toilet Seat Grab Bars Shower Transfer Goal Minimal Assistance Tub/Shower Combination Tub Transfer Bench Patient/Caregiver Education Goal Demonstrate Energy Conservation and Pacing Caregiver Independent Assisting Patient OT-Other Goals grooming to be done standing at sink or seated on 4WW. Days to Meet Goals 5 Frequency of Treatment Frequency Of Treatment Once a Day Treatment Plan OT Treatment Plan ADL Training Functional Mobility Patient/Family Education Discharge Planning Other Treatment Recommendations and Next up to chair, try sock aid, Treatment Focus long shoe horn, pt has one but was not using Discharge Recommendations OT Discharge Recommendations SNF Rehab Other Discharge Recommendations home w/assistance and HH OT/Pt if pt progresses here Home Equipment Needs to be determined
--- NOTE | 2018-06-25 16:48 | PT.IPTN ---
Current Diagnoses Hypoxemia (06/22/18) Abnormal coagulation profile (06/22/18) Physical Therapy Treatment Note M2 PT-IP Current Condition Start: 06/25/18 11:38 Freq: NEEDED Status: Active Protocol: Document 06/25/18 10:30 LR (Rec: 06/25/18 12:02 [facility] [id number]) Physical Therapy Current Condition Current Condition Evaluation Date 06/25/18 Treatment Diagnosis SOB, weakness M3 PT-IP Subjective Start: 06/25/18 11:38 Freq: NEEDED Status: Active Protocol: Document 06/25/18 16:26 SA (Rec: 06/25/18 16:48 [id number]) Subjective Physical Therapy Visit Type Type Treatment Note Visit Start Time 15:15 Visit Stop Time 15:35 Total Visit Minutes 20 Number of DOWEL POINTER Visits 1 Physical Therapy Visit Comments Patient Comments Pt agreeable to work with PT, having just finished up with OT. Patient Goals Pt hopes to D/C home. Lives with daughter who is primary caregiver but daughter works 6 -8 hours/day. Therapy Pain Assessment Pain When Pain Assessed At Rest Pain Present Pain Present Pain Reported Location Chest Pain Behaviors Facial Grimacing Pain Management Techniques Modification of Treatment Re-positioning Timing of Activity with Medications M4 PT-IP Mobility and Gait Start: 06/25/18 11:38 Freq: NEEDED Status: Active Protocol: Document 06/25/18 16:26 SA (Rec: 06/25/18 16:48 [id number]) PT-Bed Mobility Assessment Rolling Type of Rolling Roll to Right Supine to Sit Supine to Sit Moderate Assistance Head of Bed Elevated Bedrails Sit to Supine Sit to Supine Moderate Assistance Scooting Scooting to Edge of Bed Contact Guard Assistance Scooting Up and Down in Bed Maximum Assistance PT-Transfer Assessment Sit to and From Stand Sit to and from Stand Contact Guard Assistance Equipment Transfer Assistive Device Gait Belt Front Wheeled Walker Orthotic/Prosthetic Devices or Brace: No Transfer Ability Level of Assist Minimal Assistance Comments Mobility Comments Pt completed static standing x 4 min at EOB with focused PLB and 02 sats 88-90%. 02 levels dropped to 81% with bed mobility. M5 PT-IP Objective Assessments Start: 06/25/18 11:38 Freq: NEEDED Status: Active Protocol: Document 06/25/18 10:30 LR (Rec: 06/25/18 12:02 [facility] [id number]) Orientation Orientation/Cognition Level of Alertness Alert Strength Lower Extremity Strength Assessment Bilaterally Impaired M6 PT-IP Treatment Start: 06/25/18 11:38 Freq: NEEDED Status: Active Protocol: Document 06/25/18 16:26 SA (Rec: 06/25/18 16:48 SA [id number]) Physical Therapy Treatment Exercises Exercises Ankle Pumps Gluteal Sets Other Treatments Other Treatment Performed Standing lateral and ant/ posterior weight shifting. M7 PT-IP Assessment and Plan Start: 06/25/18 11:38 Freq: NEEDED Status: Active Protocol: Document 06/25/18 16:26 SA (Rec: 06/25/18 16:48 [id number]) PT Summary Assessment and Plan Potential Rehabilitation Potential Good Status of Condition at Evaluation Evolving Summary Impairments Pain Strength Balance Bed Mobility Transfers Gait Activity Tolerance Assessment Summary Pt demonstrates some anxiety with mobility tasks. Responds well to slow segmental movements. Tends to inhale through mouth and needs cues to breath in through nose to maintain 02 levels. Frequency of Treatment Frequency Of Treatment Twice a Day Treatment Plan Physical Therapy Treatment Plan Bed Mobility Training Transfer Training Gait Training Therapeutic Exercise Balance Retraining Discharge Planning Recommendations To Nursing Amount of Assist Needed 1 Person Assist Discharge Recommendations PT Discharge Recommendations Home with Assistance Home Health SNF Rehab Other Discharge Recommendations Primary caregiver(vanita) is at work most of day, pt will need more care/supervision at this time.
--- NOTE | 2018-06-25 17:35 | PC.NURSE ---
Student Nurse Note: During nursing assessment, patient displayed verbal and non-verbal signs of pain. When questioned, patient reported pain in left hip, described as sharp. Usually a4/10 but reported pain raising to a 5/10. After assisting with patient positioning, reported reduced pain and higher comfort level.
[2018-06-25] MEDS: OXYCODONE IR 5 MG TABLET 2.5 MG PO (21:34)
[2018-06-25] MEDS: SODIUM CHLORIDE 0.9% FLUSH 10 ML IV (22:01)
[2018-06-26] VITALS (12 sets, daily range): BP systolic 113–132; BP diastolic 57–71; PULSE 69–84; RESP 20–24; TEMP 35.8–36.6; O2SAT 88–97; BMI 43.3
[2018-06-26] MEDS: SODIUM CHLORIDE 0.9% FLUSH 10 ML IV ×3 (00:08→16:20)
[2018-06-26] MEDS: FUROSEMIDE 40 MG/4 ML VIAL IV ×2 (00:08→13:48)
[2018-06-26 05:06] LABS: Add Manual Diff / Slide Review NO; Basophils Percent Auto 0.6 % (0-2); Eosinophils Percent Auto 2.9 % (2-4); Hematocrit 27.8 % (36-46); Hemoglobin 9.2 g/dL (12.0-16.0); Lymphocytes Percent Auto 11.3 % (25-40); Mean Corpuscular HGB Conc 33.1 % (30-36); Mean Corpuscular Volume 90.6 fL (80-100); Monocytes Percent Auto 9.8 % (3-14); Neutrophils Absolute Auto 5700 /uL (3000-5900); Neutrophils Percent Auto 75.4 % (50-75); Platelet Count 180 X10^3/uL (150-400); Red Blood Cell Count 3.07 X10^6/uL (4.0-5.2); Red Cell Distribution Width 17.3 % (11.6-14.8); White Blood Cell Count 7.5 X10^3/uL (4.5-11.0)
[2018-06-26 05:16] LABS: BUN Creatinine Ratio 31.5 (6-22); Blood Urea Nitrogen 63 mg/dL (7-17); Calcium 9.6 mg/dL (8.4-10.2); Carbon Dioxide 27 mmol/L (22-32); Chloride 99 mmol/L (98-107); Glucose 108 mg/dL (80-110); HEMOLYSIS < 15 (0-50); Potassium 4.7 mmol/L (3.4-5.1); Sodium 136 mmol/L (137-145)
--- NOTE | 2018-06-26 08:57 | P.PN_ITS ---
Subjective Date Patient Seen: 06/26/18 Time Patient Seen: 08:49 Interval history: FOLLOW UP ON ACUTE HYPOXIC RESPIRATORY FAILURE IN SETTING OF FLUID OVERLOAD VS PNA FOLLOW UP ON ABDOMINAL PAIN FOLLOW UP ON MUCOSAL BLEEDING Patient seen at bedside. Doing well. No overnight events. Patient is extremely anxious about evething. When I offered her rehab, she became anxious-RR incrased , HR increased. She was intensely worried. When we spoke about O2 need, patient again became anxious. She seems to be anxious about every topic I bring up. She is worried about most of things in her life, and it happens on daily occurence since patient has been admitted to us. No more bleeding. No more abdominal pain. Exam Vital Signs (past 8 hours): - 06/26/18 04:53 Temperature 97.0 F L Pulse Rate 73 Respiratory Rate 21 Blood Pressure 125/71 Pulse Oximetry 97 Oxygen Delivery Method Nasal Cannula Oxygen Flow Rate 4 Narrative Exam Narrative: Gen: Moderately anxious, AAOx3 HEENT: PERRLA BL, EOMI BL. O2 2L in place saturating 98% Neck: Supple, no JVD Resp: Coarse breath sounds appreciated in all lung de [place] but aeration is improving CV: RRR, no murmurs or gallops GI: +BS, soft, nontender, obese MSK: moves all ext Skin: pitting edema is resolving Psych: excessive worrying about most of things in her life: disposition, medical condition, home situation, follow ups. Excessive worrying affecting her HR/RR Objective Labs Result Diagrams: 06/26/18 04:50 06/26/18 04:50 Labs: Laboratory Results - last 24 hr 06/26/18 06/26/18 04:50 04:50 WBC 7.5 RBC 3.07 L Hgb 9.2 L Hct 27.8 L MCV 90.6 MCH 30.0 MCHC 33.1 RDW 17.3 H Plt Count 180 Neut % (Auto) 75.4 H Lymph % (Auto) 11.3 L [place] % (Auto) 9.8 Eos % (Auto) 2.9 Baso % (Auto) 0.6 Neut # (Auto) 5700 Sodium 136 L Potassium 4.7 Chloride 99 Carbon Dioxide 27 BUN 63 H Creatinine 2.00 H Estimated GFR 24.0 L BUN/Creatinine Ratio 31.5 H Glucose 108 Calcium 9.6 Assessment & Plan Plan: Assessment/Plan Narrative: 1. Generalized Anxiety Disorder - Daily excessive worrying about multiple situations in her life - Mild relief with ativan PRN - Will start patient on Paroxetine PO 20mg Daily and monitor for improvement 2. Acute hypoxic Respiratory failure - Improving, on 2L O2 saturating 98% - Likely in the setting of atypical PNA - Lactate negative, leukocytosis resolved, procalc negative - CXR reviewed which showed nodular opacities..could mean metastasis, infection , inflammation - CT chest showed Extensive nodular and distinctly marginated multifocal airspace disease is present involving the upper and lower lungs bilaterally. A cavitary lesion is not associated. The appearance is nonspecific but is considered likely a manifestation of atypical pneumonia - Continue Azithromycin and Ceftriaxone at this time..Consider PO conversion tomorrow - Blood cutlures negative, unable to produce sputum 3. Acute Diastolic CHF exacerbation - Improving clinically, but in positive fluid balance still - BNP 590 on admission - ECHO reviewed: 60-65% EF, L ventricular hypertrophy, with apical hypokinesis - Finally in negative fluid balance - Will continue Lasix 40mg IV BID for one more day...Consider switching to PO tomorrow - Daily weights, I/O, Fluid restriction to 2500cc/day 4. Pancreatitis, mild - Resolving, pain is gone - Lipase 461 on admission - US showed cholelithiasis but no cholecystitis or impacting stone - CT abd reviewed: multiple moderate size gallstones within the gallbladder lumen without evidence of acute cholecystitis or biliary obstruction. - Patient is able to tolerate PO, no nausea/vomiting - Continue PO diet as tolerated 5. Acute Kidney Injury - Stabilized at around 2.0 - Continue Lasix 40mg IV BID - Monitor renal function 6. History of chronic DVT - Was on coumadin which we are holding now that she developed mucosal bleed - Will reassess risk for thrombosis after bleeding has resolved and if needed, resume warfarin 7. CAD - Stable - Continue Ezetemibe. Hold ASA with recent bleed 8. Acute blood loss anemia - Hb stable now, 9.2 - Continue to monitor 20 min spent evaluating and providing care for this patient
[2018-06-26] MEDS: CALCIUM CARBONATE 600 MG TABLET 1200 MG PO (09:20)
[2018-06-26] MEDS: EZETIMIBE 10 MG TABLET PO (09:20)
[2018-06-26] MEDS: PARoxetine 20 MG TABLET PO (09:20)
[2018-06-26] MEDS: HYDRALAZINE 25 MG TABLET 12.5 MG PO ×3 (09:20→20:19)
[2018-06-26] MEDS: LACTOBACILLUS ACIDOPHILUS TABLET 1 EACH PO ×2 (09:21→17:43)
[2018-06-26] MEDS: NYSTATIN POWDER 30 GM 1 APPLIC TOP (09:21)
[2018-06-26] MEDS: CARVEDILOL 12.5 MG TABLET PO ×2 (09:21→20:19)
[2018-06-26] MEDS: ACETAMINOPHEN 325 MG TABLET 975 MG PO ×2 (09:21→20:19)
[2018-06-26] MEDS: CHOLECALCIFEROL (VITAMIN D3) 1,000 UNIT TABLET 2000 UNIT PO (09:21)
[2018-06-26] MEDS: POLYETHYLENE GLYCOL 3350 17 GM POWD.PACK PO (09:22)
[2018-06-26] MEDS: predniSONE 1 MG TABLET PO (09:24)
--- NOTE | 2018-06-26 10:30 | OT.IP.TRT ---
Current Diagnoses Hypoxemia (06/22/18) Abnormal coagulation profile (06/22/18) Occupational Therapy Treatment Note M2 OT-IP Current Condition Start: 06/25/18 15:29 Freq: Status: Active Protocol: Document 06/25/18 15:15 PJM (Rec: 06/25/18 15:51 PJM [id number]) Occupational Therapy Current Condition Current Condition Evaluation Date 06/25/18 Treatment Diagnosis decreased self care, functional mobility due to atypical PNA w/resp failure Diagnosis Onset Date 06/22/18 Post Operative Precautions Other Precautions fall risk, O2 2L, monitor O2 sats M3 OT- IP Subjective and Pain Start: 06/25/18 15:29 Freq: Status: Active Protocol: Document 06/26/18 10:30 PJM (Rec: 06/26/18 16:32 PJM [id number]) OT- Subjective Occupational Therapy Visit Type Type Treatment Note Visit Start Time 09:40 Visit Stop Time 10:30 Total Visit Minutes 50 Notes Pt awake in recliner with RN present in room to remove larios. Occupational Therapy Visit Comments Patient Comments I hurt all over, I have to get back to bed. Patient/Caregiver Goals to go home OT Pain Assessment Pain When Pain Assessed After Treatment Pain Present Pain Present Pain Reported Location generalized Intensity 7 Description Aching Chronic Pain Behaviors Restlessness Wincing Management Techniques Distraction Re-positioning Timing of Activity with Medications M4 OT- IP ADL's Start: 06/25/18 15:29 Freq: Status: Active Protocol: Document 06/26/18 10:30 PJM (Rec: 06/26/18 16:32 PJM [id number]) OT ADL-Grooming General Evaluation Grooming Ability Standby Assistance Areas Needing Assistance Retrieving/Set-up of Grooming Items Combing/Brushing Hair Face Washing Comments OT Grooming Comments seated in chair OT ADL-Oral Care General Eval Oral Care Ability Standby Assistance Areas of Assistance Retrieving/Set-Up of Items Devices Oral Care Devices Toothbrush Comments Oral Care Comments seated in chair OT ADL-Dressing General Eval Upper Body Dressing Ability Minimal Assistance Lower Body Dressing Ability Moderate Assistance Areas Needing Assistance Underpants/Brief Assistive Devices Dressing Assistive Devices Blackjack Pit Boss Comments OT Dressing Comments min assist with gown change; mod assist to don brief; began education re: use of tank operator for task. Pt has tank operator; would benefit from trial of sock aid. OT ADL-Toileting General Evaluation Toileting Ability Total Assistance Areas Needing Assistance Manage Clothing Perform Perineal Hygiene Devices Toileting Assistive Devices Commode Comments OT Toileting Comments Pt unable to reach nickolas area for clean up after BM. Will provided education re: toilet paper aids OT ADL-Bathing Bathing Type Bathing Type Sponge Bath General Evaluation Bathing Ability Maximal Assistance Comments OT Bathing Comments RN completed nickolas hygiene after larios removal. Pt needs max assist for seated sponge bath due to decreased thoroughness and large body size. Pt noted to have reddened flaky skin under breasts and pannus and RN in to provide nystantin powder. Pillowcases placed under pannus and breasts to absorb perspiration. 29 Freq: Status: Active Protocol: Document 06/26/18 10:30 PJM (Rec: 06/26/18 16:32 PJM [id number]) Cognitive Factors Limiting Selfcare Function Cognitive Ability Level of Alertness Alert Attention Span Ability Capable of Focused Attention Ability to Follow Commands Able to Follow One Step Commands Safety Awareness Underestimates Need for Assistance Problem Solving Ability Needs Assist to Identify Solutions Cognitive Comments Cognitive Assessment Comments Pt has high anxiety overlay which interferes with sustained attention to tasks and problem solving alternative methods for self care tasks. M7 OT- IP Mobility and Balance Start: 06/25/18 15:29 Freq: Status: Active Protocol: Document 06/26/18 10:30 PJM (Rec: 06/26/18 16:32 PJM [id number]) OT- Bed Mobility Assessment Sit to Supine Sit to Supine Assist Moderate Assistance 1 Person Assistance Scooting Scooting to Edge of Bed Standby Assistance Scooting Up and Down in Bed Maximum Assistance 2 Person Assistance OT-Transfer Assessment Sit to and From Stand Sit to and from Stand Minimal Assistance Transfers Transfer Ability Minimal Assistance Technique Transfer Destination Bed Bedside Commode Chair Transfer Technique Stand Step Pivot Devices Transfer Assistive Devices Gait Belt Front Wheeled Walker Comments Mobility Comments pt transferred from chair to BSC to chair to bed this session OT- Balance Assessment Sitting Balance and Reactions Static Sitting Balance Ability Good Dynamic Sitting Balance Ability Fair Standing Balance and Reactions Static Standing Balance Ability Fair Dynamic Standing Balance Ability Fair M9 OT- IP Assessment and Plan Start: 06/25/18 15:29 Freq: Status: Active Protocol: Document 06/26/18 10:30 PJM (Rec: 06/26/18 16:32 PJM [id number]) OT Summary Assessment and Plan Summary OT Impairments Pain Strength Balance Functional Cognition Functional Mobility Grooming Dressing Toileting Bathing Toilet Transfers Shower Transfers Progress Towards Goals Slow Progress due to Pain Slow Progress due to Activity Tolerance Assessment Summary Pt presents with high anxiety overlay today. Pt needs mod verbal cues for pursed lip breathing and to refocus attention to task. O2 sats dropping into high 70's when pt very anxious, with slow recovery (4-5 min) as pt calms down. Anxiety level interferes with problem solving alternative methods for self care tasks. Pt tends to underestimate need for assistance. Note pt had reddened areas under breasts/ pannus with dry flaking skin observed. RN in to apply Nystantin powder. Pt may need bath aide to ensure adequate hygiene once she returns home. Pt currently needs significant assist with all self care and functional mobility as noted above. She currently requires 24 hr assist for safety with high care needs. Recommend SNF for further rehab prior to returning home as daughter works and pt is home alone up to 6 hrs/day. Goals Grooming Goal Standby Assistance Dressing Goal Standby Assistance Long Handled Shoe Horn Sock Aid Toileting Goal Independent Bathing Goal Standby Assistance Toilet Transfer Goal Independent Raised Toilet Seat Grab Bars Shower Transfer Goal Minimal Assistance Tub/Shower Combination Tub Transfer Bench Patient/Caregiver Education Goal Demonstrate Energy Conservation and Pacing Caregiver Independent Assisting Patient OT-Other Goals grooming to be done standing at sink or seated on 4WW. Days to Meet Goals 5 Frequency of Treatment Frequency Of Treatment Once a Day Treatment Plan OT Treatment Plan ADL Training Functional Mobility Patient/Family Education Discharge Planning Other Treatment Recommendations and Next up to chair, try sock aid, Treatment Focus long shoe horn, pt has one but was not using Discharge Recommendations OT Discharge Recommendations SNF Rehab Home Equipment Needs to be determined in next rehab setting
[2018-06-26] MEDS: PANTOPRAZOLE 40 MG VIAL IV ×2 (11:40→20:19)
[2018-06-26] MEDS: CEFTRIAXONE 1 GM/50 ML FROZ.PIGGY IV (11:40)
--- NOTE | 2018-06-26 12:07 | PT.IPTN ---
Current Diagnoses Hypoxemia (06/22/18) Abnormal coagulation profile (06/22/18) Physical Therapy Treatment Note M2 PT-IP Current Condition Start: 06/25/18 11:38 Freq: NEEDED Status: Active Protocol: Document 06/25/18 10:30 LR (Rec: 06/25/18 12:02 LR [id number]) Physical Therapy Current Condition Current Condition Evaluation Date 06/25/18 Treatment Diagnosis SOB, weakness M3 PT-IP Subjective Start: 06/25/18 11:38 Freq: NEEDED Status: Active Protocol: Document 06/26/18 12:07 GGD (Rec: 06/26/18 12:07 GGD [id number]) Subjective Physical Therapy Visit Type Type Patient Refusal Notes Pt states she would like to get up after lunch. Other Discharge Recommendations Primary caregiver(vanita) is at work most of day, pt will need more care/supervision at this time.
[2018-06-26] MEDS: AZITHROMYCIN 500 MG in DEXTROSE 5% IN WATER 250 ML IV (13:50)
--- NOTE | 2018-06-26 16:09 | CM.DPC ---
DCP: continued: case received, EMR reviewed and met with pt, her daughter Shanti Colindres [phone] and CHINO/Charu while they discussed case with Dr. Barcenas. Met afterwards with Shanti. DC dispo options discussed with identified plan: 1: [facility] 2: [facility] 3: [facility] Due to lateness of hour have reached out by phone to the first 2 choices and will followup tomorrow. Will update this note upon my return tomorrow morning to details of this indepth discussion and the issues identified that impact the d/c planning process.
[2018-06-26] MEDS: ONDANSETRON 4 MG/2 ML INJ IV (16:20)
--- NOTE | 2018-06-26 16:38 | PT.IPTN ---
Current Diagnoses Hypoxemia (06/22/18) Abnormal coagulation profile (06/22/18) Physical Therapy Treatment Note M2 PT-IP Current Condition Start: 06/25/18 11:38 Freq: NEEDED Status: Active Protocol: Document 06/25/18 10:30 LR (Rec: 06/25/18 12:02 LR [email or web address]) Physical Therapy Current Condition Current Condition Evaluation Date 06/25/18 Treatment Diagnosis SOB, weakness M3 PT-IP Subjective Start: 06/25/18 11:38 Freq: NEEDED Status: Active Protocol: Document 06/26/18 16:18 LJ (Rec: 06/26/18 16:36 LJ [id number]) Subjective Physical Therapy Visit Type Type Treatment Note Visit Start Time 15:46 Visit Stop Time 16:18 Total Visit Minutes 32 Number of WEBSPHERE ARCHITECT Visits 2 Physical Therapy Visit Comments Patient Comments Pt states she needs to use the [facility] Therapy Pain Assessment Pain When Pain Assessed During Mobility Pain Present Pain Present Pain Reported Location Chest Pain Behaviors Calling Out Facial Grimacing Moaning Wincing Pain Management Techniques Elevation Modification of Treatment Re-positioning M4 PT-IP Mobility and Gait Start: 06/25/18 11:38 Freq: NEEDED Status: Active Protocol: Document 06/26/18 16:18 LJ (Rec: 06/26/18 16:36 LJ [id number]) PT-Bed Mobility Assessment Rolling Type of Rolling Roll to Right Supine to Sit Supine to Sit Moderate Assistance 1 Person Assistance Head of Bed Elevated Bedrails Sit to Supine Sit to Supine Moderate Assistance 1 Person Assistance Head of Bed Elevated Bedrails Scooting Scooting to Edge of Bed Minimal Assistance PT-Transfer Assessment Sit to and From Stand Sit to and from Stand Contact Guard Assistance Equipment Transfer Assistive Device Gait Belt Front Wheeled Walker Orthotic/Prosthetic Devices or Brace: No Transfers Transfer Destination Bed Toilet Transfer Ability Level of Assist Minimal Assistance Comments Mobility Comments Pt O2 dropped to 86% (nasal canula) during transfer to [facility] . Return to bed pt required mod assist with LEs and Max assist to scoot to head of bed . O2 dropped to 84% for a short time after returning to bed. O2 increased to 88% after 1 min performing deep breathing. Gait Assessment Gait Gait Assistance Required: Contact Guard Assist Distance (Feet) 3 Able to Maintain Weight Bearing Status Yes During Gait Assistive Devices Assistive Device Gait Belt Front Wheeled Walker Orthotic/Prosthetic Devices or Brace: No Gait Deviations General Gait Pattern Antalgic Decreased Stride Length Decreased Feet Clearance Flexed Trunk Lateral Trunk Lean Step-to Gait Wide Based Gait Factors Limiting Gait Function Factors Limiting Gait Function Decreased Activity Tolerance Decreased Strength Limited Range of Motion Pain Respiratory Distress Comments Gait Comments Pt able to stand step pivot and walk back 2 steps to BSC and return to bed. O2 remained at 86% during ambulation to BSC. O2 returned to 88% while seated on commode. M5 PT-IP Objective Assessments Start: 06/25/18 11:38 Freq: NEEDED Status: Active Protocol: Document 06/25/18 10:30 LR (Rec: 06/25/18 12:02 [facility] [id number]) Orientation Orientation/Cognition Level of Alertness Alert Strength Lower Extremity Strength Assessment Bilaterally Impaired M6 PT-IP Treatment Start: 06/25/18 11:38 Freq: NEEDED Status: Active Protocol: Document 06/26/18 16:18 LJ (Rec: 06/26/18 16:36 LJ [id number]) Physical Therapy Treatment Exercises Exercises Ankle Pumps Gluteal Sets Other Treatments Other Treatment Performed Standing lateral and ant/ posterior weight shifting; small marching steps. Bridging in bed x 2 with Mod assist. M7 PT-IP Assessment and Plan Start: 06/25/18 11:38 Freq: NEEDED Status: Active Protocol: Document 06/26/18 16:36 LJ (Rec: 06/26/18 16:38 LJ [id number]) PT Summary Assessment and Plan Summary Assessment Summary Pt able unable to position self in bed. Req's mod assist and max verbal cues for breathing pattern. Shows a great deal of anxiety with movement and breathing. Frequency of Treatment Frequency Of Treatment Twice a Day Treatment Plan Physical Therapy Treatment Plan Bed Mobility Training Transfer Training Gait Training Therapeutic Exercise Balance Retraining Discharge Planning Recommendations To Nursing Amount of Assist Needed 1 Person Assist Discharge Recommendations PT Discharge Recommendations Home with Assistance Home Health SNF Rehab Other Discharge Recommendations Primary caregiver(vanita) is at work most of day, pt will need more care/supervision at this time.
[2018-06-26] MEDS: OXYCODONE IR 5 MG TABLET 2.5 MG PO ×2 (17:43→20:20)
[2018-06-27] MEDS: SODIUM CHLORIDE 0.9% FLUSH 10 ML IV ×2 (00:07→08:48)
[2018-06-27] MEDS: FUROSEMIDE 40 MG/4 ML VIAL IV ×2 (00:07→13:07)
[2018-06-27 00:08] VITALS: BP 125/51; PULSE 63; RESP 21; TEMP 36.1; O2SAT 95
[2018-06-27 05:09] LABS: Add Manual Diff / Slide Review NO; Basophils Percent Auto 0.7 % (0-2); Eosinophils Percent Auto 2.8 % (2-4); Hematocrit 26.6 % (36-46); Hemoglobin 8.9 g/dL (12.0-16.0); Lymphocytes Percent Auto 14.2 % (25-40); Mean Corpuscular HGB Conc 33.2 % (30-36); Mean Corpuscular Hemoglobin 29.9 PG (26-34); Monocytes Percent Auto 8.7 % (3-14); Neutrophils Absolute Auto 4500 /uL (3000-5900); Neutrophils Percent Auto 73.6 % (50-75); Platelet Count 185 X10^3/uL (150-400); Red Blood Cell Count 2.96 X10^6/uL (4.0-5.2); Red Cell Distribution Width 17.6 % (11.6-14.8); White Blood Cell Count 6.1 X10^3/uL (4.5-11.0)
[2018-06-27 05:14] LABS: INR 1.4 (0.9-1.3); Prothrombin Time 15.3 SECONDS (10.1-12.7)
[2018-06-27 05:15] LABS: PTT Partial Thromboplastin Tim 19 SECONDS (26.4-36.2)
[2018-06-27 05:19] LABS: BUN Creatinine Ratio 35.8 (6-22); Blood Urea Nitrogen 68 mg/dL (7-17); Calcium 9.5 mg/dL (8.4-10.2); Carbon Dioxide 19 mmol/L (22-32); Chloride 100 mmol/L (98-107); Estimated Glomerular Filt Rate 25.4 mL/min (>60); Glucose 101 mg/dL (80-110); HEMOLYSIS 20 (0-50); Potassium 4.6 mmol/L (3.4-5.1); Sodium 132 mmol/L (137-145)
--- NOTE | 2018-06-27 07:29 | CM.DPC ---
[facility] per [place]
[2018-06-27 08:20] VITALS: BP 130/65; PULSE 70; RESP 24; TEMP 36.3; O2SAT 95
[2018-06-27] MEDS: LACTOBACILLUS ACIDOPHILUS TABLET 1 EACH PO (08:43)
[2018-06-27] MEDS: CALCIUM CARBONATE 600 MG TABLET 1200 MG PO (08:43)
[2018-06-27] MEDS: PARoxetine 10 MG TABLET PO (08:43)
[2018-06-27] MEDS: HYDRALAZINE 25 MG TABLET 12.5 MG PO (08:43)
[2018-06-27] MEDS: predniSONE 1 MG TABLET PO (08:44)
[2018-06-27] MEDS: CARVEDILOL 12.5 MG TABLET PO (08:44)
[2018-06-27] MEDS: ACETAMINOPHEN 325 MG TABLET 975 MG PO (08:44)
[2018-06-27] MEDS: EZETIMIBE 10 MG TABLET PO (08:44)
[2018-06-27] MEDS: CHOLECALCIFEROL (VITAMIN D3) 1,000 UNIT TABLET 2000 UNIT PO (08:44)
[2018-06-27] MEDS: PANTOPRAZOLE 40 MG VIAL IV (08:47)
[2018-06-27 09:00] VITALS: O2SAT 95
--- NOTE | 2018-06-27 09:21 | OT.IP.TRT ---
Current Diagnoses Hypoxemia (06/22/18) Abnormal coagulation profile (06/22/18) Occupational Therapy Treatment Note M2 OT-IP Current Condition Start: 06/25/18 15:29 Freq: Status: Active Protocol: Document 06/25/18 15:15 PJM (Rec: 06/25/18 15:51 PJM [id number]) Occupational Therapy Current Condition Current Condition Evaluation Date 06/25/18 Treatment Diagnosis decreased self care, functional mobility due to atypical PNA w/resp failure Diagnosis Onset Date 06/22/18 Post Operative Precautions Other Precautions fall risk, O2 2L, monitor O2 sats M3 OT- IP Subjective and Pain Start: 06/25/18 15:29 Freq: Status: Active Protocol: Document 06/27/18 09:21 PJM (Rec: 06/27/18 11:51 PJM [email or web address]) OT- Subjective Occupational Therapy Visit Type Type Treatment Note Visit Start Time 08:50 Visit Stop Time 09:21 Total Visit Minutes 31 Notes Pt awake and alert in bed; agreeable to tx. Pt on 2L O2 NC this session Occupational Therapy Visit Comments Patient Comments I had a good night. Patient/Caregiver Goals to go home OT Pain Assessment Pain When Pain Assessed After Treatment Pain Present Pain Present Pain Reported Location generalized Scale Used does not rate on 10 pt scale Description Aching Chronic Pain Behaviors Facial Grimacing Guarding M4 OT- IP ADL's Start: 06/25/18 15:29 Freq: Status: Active Protocol: Document 06/27/18 09:21 PJM (Rec: 06/27/18 11:51 PJM [email or web address]) OT ADL-Grooming General Evaluation Grooming Ability Standby Assistance Minimal Assistance Areas Needing Assistance Combing/Brushing Hair Face Washing Comments OT Grooming Comments min assist to reach back of head when brushing hair; SBA for face washing; pt stood 4 min at sink today! OT ADL-Oral Care General Eval Oral Care Ability Standby Assistance Devices Oral Care Devices Toothbrush Comments Oral Care Comments standing at sink with FWW; provided education re: energy M6 OT- IP Functional Cognition Start: 06/25/18 15:29 Freq: Status: Active Protocol: Document 06/27/18 09:21 PJM (Rec: 06/27/18 11:51 PJM [id number]) Cognitive Factors Limiting Selfcare Function Cognitive Ability Level of Alertness Alert Attention Span Ability Capable of Focused Attention Capable of Sustained Attention Ability to Follow Commands Able to Follow One Step Commands Safety Awareness Underestimates Need for Assistance Problem Solving Ability Unable to Identify Errors Needs Assist to Identify Solutions Cognitive Comments Cognitive Assessment Comments Pt less anxious today with good effort and participation with encouragement. Needs mod to max verbal cues for pursed lip breathing. M7 OT- IP Mobility and Balance Start: 06/25/18 15:29 Freq: Status: Active Protocol: Document 06/27/18 09:21 [facility] (Rec: 06/27/18 11:51 [facility] [id number]) OT- Bed Mobility Assessment Rolling Type of Rolling Roll to Left Level of Assistance Minimal Assistance 1 Person Assistance Head of Bed Elevated Bedrails Supine to Sit Supine to Sit Assist Minimal Assistance 1 Person Assistance Head of Bed Elevated Bedrails Sit to Supine Sit to Supine Assist Standby Assistance Head of Bed Elevated Bedrails Scooting Scooting to Edge of Bed Standby Assistance OT-Transfer Assessment Sit to and From Stand Sit to and from Stand Contact Guard Assistance Transfers Transfer Ability Contact Guard Assistance Technique Transfer Destination Chair Devices Transfer Assistive Devices Gait Belt Front Wheeled Walker Comments Mobility Comments Pt walked 2 ft to chair. OT- Gait Assessment Gait Gait Assistance Required: Contact Guard Assist Distance (Feet) 20 Assistive Devices Assistive Device Gait Belt Front Wheeled Walker Comments Gait Ability Comments 10 ft to sink then standing 4 min then 10 ft back to chair with FWW, mildy unsteady OT- Balance Assessment Sitting Balance and Reactions Static Sitting Balance Ability Good Standing Balance and Reactions Static Standing Balance Ability Fair Dynamic Standing Balance Ability Fair M9 OT- IP Assessment and Plan Start: 06/25/18 15:29 Freq: Status: Active Protocol: Document 06/27/18 09:21 [facility] (Rec: 06/27/18 11:51 [facility] [id number]) OT Summary Assessment and Plan Summary OT Impairments Pain Strength Balance Functional Mobility Dressing Toileting Bathing Toilet Transfers Shower Transfers Progress Towards Goals Progressing Toward Goals Assessment Summary Pt making steady daily progress with functional mobility and able to walk to sink for standing grooming today. Pt less anxious today but still performs very slowly with frequent rest breaks required. She tends to take shallow rapid breaths and needs mod to max verbal cues for breathing pattern. Pt desats to mid 80's with activity on 2L with much more rapid recovery to low 90's once seated, compared to yesterday. Pt still needs 24/7 assist for safety. Recommend SNF stay for further rehab services prior to returning home with working daughter. Goals Grooming Goal Standby Assistance Dressing Goal Standby Assistance Long Handled Shoe Horn Sock Aid Toileting Goal Independent Bathing Goal Standby Assistance Toilet Transfer Goal Independent Raised Toilet Seat Grab Bars Shower Transfer Goal Minimal Assistance Tub/Shower Combination Tub Transfer Bench Patient/Caregiver Education Goal Demonstrate Energy Conservation and Pacing Caregiver Independent Assisting Patient OT-Other Goals grooming to be done standing at sink or seated on 4WW. Days to Meet Goals 5 Frequency of Treatment Frequency Of Treatment Once a Day Treatment Plan OT Treatment Plan ADL Training Functional Mobility Patient/Family Education Discharge Planning Other Treatment Recommendations and Next up to chair, try sock aid, Treatment Focus long shoe horn, pt has one but was not using Discharge Recommendations OT Discharge Recommendations SNF Rehab Home Equipment Needs to be determined in next rehab setting
--- NOTE | 2018-06-27 10:23 | CM.DPC ---
DCP: continued: met with pt again this morning. She is now in rm 206, out of ICU setting and is found sitting up on edge of bed, [address], smiling and working with OT. Dr. Barcenas has confirmed that pt is ready for d/c today. [facility] with [facility]. She has reviewed the case, can accept and she is setting up w/c van transport for 1430 that will include 02 and accommodate pt's size: 5'2 220 lbs. Have updated pt's daughter Shanti and she [place] 1200 and meet her mother at the facility. [facility] has confirmed Medicaid status: is active but with a spend down of $3708.00. [facility] and Shanti are both updated re this. Pt is going to the snf under her Medicare benefit, at this point expectation is that she will not need to exceed the 20 day MC coverage and will be able to go home again with her daughter's care as per plan. Will update pt now and follow with [facility] and SNF orders as these are completed.
--- NOTE | 2018-06-27 10:43 | PM.DS.1 ---
History of Present Illness Date Patient Seen: 06/27/18 Time Patient Seen: 10:44 Chief complaint: SOB, Abd pain Narrative: 81-year-old female with past medical history of diastolic CHF, CAD, CKD stage IV, and chronic DVT on Coumadin therapy presented to emergency department with shortness of breath and abdominal pain for 2 days. At the time of admission, patient complained of not being able to walk more than half a block without getting short of breath. She denied any chest pain at that time. She did however complain of epigastric abdominal pain that has been on and off for a few months but became a lot worse in the 1-2 days prior to admission. She denied any vomiting but had occasional nausea episodes. Denied any diarrhea, constipation, or melenic stools. Patient denied any cough, recent URI like symptoms, mucus production, fevers, chills. She denied any palpitations. Discharge Providers Date of admission: 06/22/18 13:47 Primary care physician: Miko Calvo MD Consults: 06/22/18 13:44 Consult to Physician Routine Comment: Consulting Provider: Meet Cortez Reason for consultation: admission Has provider been notified: Yes 06/22/18 15:21 Consult to Dietitian, Adult Routine Comment: Reason For Exam: assessed at risk Consult to Pastoral Services Routine Comment: per request of pt 06/25/18 09:28 Consult to Physical Therapy Evaluate & Treat Comment: Physician Instructions: Evaluate and Treat 06/25/18 09:29 Consult to Occupational Therapy Evaluate & Treat Comment: Physician Instructions: Evaluate and treat Discharge provider: Poppy Barcenas MD Discharge Date: 06/27/18 Summary Discharge Diagnosis: Generalized Anxiety Disorder Acute Hypoxemic Respiratory Failure, resolving Acute Atypical Multifocal PNA Acute on Chronic Diastolic CHF, resolving Acute pancreatitis, resolving Acute on Chronic Kidney Disease, stable Chronic DVT, anticoagulation stopped CAD Acute Blood loss anemia, resolved Hospital Course: On admission to emergency department, patient's temperature was 97.0? F, pulse was 113, respiratory 29, blood pressure 143/75, saturating 82% on room air. She was placed on nasal cannula 6 L, with minimal improvement in saturation, and therefore had to be placed on BiPAP. Lab work revealed WBC 13.2, hemoglobin 9.8, hematocrit 30.4, platelet count 245, sodium 142, potassium 5.4, chloride 102, carbon dioxide 29, BUN 65, creatinine 1.8, blood glucose 134. BNP was 590. Procalcitonin was less than 0.05. Total bilirubin 0.5, AST 31, ALT 33, alkaline phosphatase 80, troponin 0.032, lipase 461. Lactate was 0.8. INR 10.4. ABG showed 7.42/42/136. UA was negative for infection. Chest x-ray performed which revealed poorly defined nodular opacities throughout the lungs with differential diagnosis of metastatic disease infection or inflammatory nodules. Patient was then transferred to ICU due to requirement of BiPAP use. Once in ICU, patient was slowly titrated off BiPAP and transitioned to nasal cannula oxygen between 2-3 L with good improvement in saturation. Due to concerning chest x-ray findings in ED, patient's CT chest without contrast was performed, which revealedpatchy nodular severe airspace disease representing atypical pneumonia. Patient was started on azithromycin and ceftriaxone for treatment of atypical pneumonia, with improvement of saturations, although very slow. Patient completed 5 day course of azithromycin and ceftriaxone, and was then switched to cefuroxime p.o. 500 mg b.i.d. for 5 more days. On the admission, patient was found to be in fluid overload, and was therefore started diuresis with Lasix IV. ECHO performed which revealed ejection fraction of 60-65%, aortic sclerosis without stenosis, normal mitral valve, tricuspid regurg, pulmonary artery systolic pressure of 50 mmHg, and severely dilated ascending aorta at 5.2 cm. Patient had good response to diuresis, with renal function improving, however the next day she became hypotensive with blood pressure 90s over 50s, and was noted to have nasal bleeding. Her diuresis was stopped until blood pressure normalized again and patient was transfused blood. Her diuresis was then resumed with Lasix 40 mg IV b.i.d. him again, with this good urine response and negative fluid balance. On admission, patient's INR was 10.4. Since she initially was not bleeding, Coumadin was held and INR was being monitored. On the 2nd day of the admission she developed nasal mucosal bleeding, blood pressure dropped to 90s over 50s, and hemoglobin dropped to 7.1. Patient was given 4 bags of FFP, vitamin K IV, and was given 2 units packed red blood cells, with hemoglobin improving to 8.8-9.1range, where it remained stable for the rest of the admission. Patient was discharged home with instructions not to take warfarin, and follow up with her primary care provider regarding resuming the warfarin. Patient was also noted to have elevated BUN and creatinine on admission, the 60s and 2 range respectively. Initially thought to be due to AK eye from fluid overload, it was then thought that patient has chronic kidney disease at baseline, and her creatinine is 1.8-2.0 range chronically. It is mildly improved after Lasix administration, but remained within the GFR of 27-29 range. She was discharged with resumption of her home medication torsemide 60 mg p.o. daily Patient's abdominal pain on admission was deemed to be due to acute mild pancreatitis, as her lipase was elevated. Abdominal ultrasound revealed mild increased hepatic echogenicity related to hepatic steatosis, cholelithiasis with no cholecystitis. CT abdomen/pelvis was then performed which revealed multiple moderate gallstones within the gallbladder lumen without cholecystitis, small calculi in the right kidney. Patient tolerated p.o. diet very well, with no vomiting episodes, however did have intermittent abdominal pain, which was well controlled with oxycodone. Patient's CAD was initially managed with resumption of ezetimibe and aspirin. Nevertheless, when patient developed acute blood loss anemia, aspirin was held, but was resumed on discharge. During admission patient seemed to be extremely anxious and agitated. She continued to worry about multiple situations in her life, including her comorbidities, living situation, the pain medications, etc. Patient was diagnosed with generalized anxiety disorder and started on Paroxetine 10 mg daily, with dramatic improvement in her symptoms. Status at Discharge Functional status at discharge: uses cane/walker Overall status at discharge: patient is progressing back to baseline Time Spent with Patient Less than 30 minutes Exam Vital Signs (past 8 hours): - 06/27/18 08:20 06/27/18 09:00 Temperature 97.4 F L Pulse Rate 70 Respiratory Rate 24 Blood Pressure 130/65 Pulse Oximetry 95 95 Fraction of Inspired Oxygen 28 Oxygen Delivery Method Nasal Cannula Oxygen Flow Rate 2 Narrative Exam Narrative: Gen: NAD, AAOx3 HEENT: PERRLA BL, EOMI BL. O2 2L in place saturating 98% Neck: Supple, no JVD or LAD Resp: Coarse breath sounds appreciated in all lung de la cruz but aeration is improving CV: RRR, no murmurs or gallops GI: +BS, soft, nontender, obese, no organomegally MSK: moves all ext Skin: pitting edema is resolving Psych: appropriate mood, able to make her own decisions. Anxiety resolved Objective Labs Result Diagrams: 06/27/18 04:48 06/27/18 04:48 Labs: Laboratory Results - last 24 hr 06/27/18 06/27/18 06/27/18 04:48 04:48 04:48 WBC 6.1 RBC 2.96 L Hgb 8.9 L Hct 26.6 L MCV 90.0 MCH 29.9 MCHC 33.2 RDW 17.6 H Plt Count 185 Neut % (Auto) 73.6 Lymph % (Auto) 14.[address] [place] % (Auto) 8.7 Eos % (Auto) 2.8 Baso % (Auto) 0.7 Neut # (Auto) 4500 PT 15.3 H INR 1.4 H APTT 19 L D Sodium 132 L Potassium 4.6 Chloride 100 Carbon Dioxide 19 L BUN 68 H Creatinine 1.90 H Estimated GFR 25.4 L BUN/Creatinine Ratio 35.8 H Glucose 101 Calcium 9.5 Discharge Plan Discharge Plan Transfer to: [facility] Transportation: [facility] I certify the postop hospital shelter care is medically necessary on a continuing basis for any conditions for which he/ she received care during this hospitalization.: Yes The receiving facility has agreed to accept transfer and provide medical treatment.: Yes Discharge Med Rec/Prescriptions Prescriptions: New acetaminophen 325 mg Tablet 650 mg PO Q4HR PRN (Reason: As Needed For Fever/Mild Pain) Qty: 20 RF: 0 paroxetine HCl [Paxil] 10 mg Tablet 10 mg PO DAILY Qty: 30 RF: 0 oxycodone 5 mg Tablet 2.5 mg PO Q4HR PRN (Reason: Pain, Moderate (4-6)) Qty: 20 RF: 0 L.acidoph-L.bulg-B.bif-S.therm [Bacid (L. acidophilus)] 1 billion cell- 250 mg Tablet 1 ea PO BIDWM Qty: 10 RF: 0 cefuroxime axetil 500 mg tablet 500 mg PO Q12H 5 Days Qty: 10 RF: 0 Continue carvedilol 25 mg tablet 12.5 mg PO BID RF: 0 hydralazine 25 mg tablet 12.5 mg PO TID RF: 0 aspirin 81 mg Tablet,Delayed Release (Dr/Ec) 81 mg PO DAILY RF: 0 calcium carbonate 600 mg calcium (1,500 mg) Tablet 2 tab PO DAILY RF: 0 prednisone 1 mg tablet 1 mg PO DAILY RF: 0 polyethylene glycol 3350 17 gram/dose powder 17 g PO DAILY RF: 0 lisinopril 2.5 mg tablet 1 tab PO DAILY RF: 0 ezetimibe 10 mg tablet 10 mg PO DAILY RF: 0 cholecalciferol (vitamin D3) [Vitamin D3] 2,000 unit Tablet 2,000 unit PO DAILY RF: 0 torsemide 20 mg Tablet 60 mg PO DAILY RF: 0 nitroglycerin 0.4 mg Tablet, Sublingual 0.4 mg Sublingual PRN PRN (Reason: Chest Pain) RF: 0 Discontinued furosemide 40 mg tablet 2 tab PO DAILY RF: 0 warfarin 5 mg tablet 5 mg PO DIRECTED RF: 0 warfarin 5 mg tablet 2.5 mg PO DIRECTED RF: 0 amoxicillin-pot clavulanate 500-125 mg tablet 1 tab PO BID RF: 0 oxycodone 5 mg tablet 2.5 mg PO BEDTIME RF: 0 acetaminophen 500 mg Tablet 1,000 mg PO Q12HR RF: 0 Discharge Orders: Discharge (Order); Ordered 06/27/18 Ordered By: Poppy Barcenas Provider Discharge Instructions Diet: Low-sodium and Low-cholesterol Liquid consistency: Normal/Thin Food texture: Regular Activity: WITH PT/OT Discharge Data Primary Care Provider: Miko Calvo Attending Provider: Meet Cortez Admhermelinda Date/Time: 06/22/18 13:47
--- NOTE | 2018-06-27 10:49 | PT.IPTN ---
Current Diagnoses Hypoxemia (06/22/18) Abnormal coagulation profile (06/22/18) Physical Therapy Treatment Note M2 PT-IP Current Condition Start: 06/25/18 11:38 Freq: NEEDED Status: Active Protocol: Document 06/25/18 10:30 LR (Rec: 06/25/18 12:02 LR [email or web address]) Physical Therapy Current Condition Current Condition Evaluation Date 06/25/18 Treatment Diagnosis SOB, weakness M3 PT-IP Subjective Start: 06/25/18 11:38 Freq: NEEDED Status: Active Protocol: Document 06/27/18 10:47 LJ (Rec: 06/27/18 10:49 LJ [id number]) Subjective Physical Therapy Visit Type Type Treatment Note Visit Start Time 10:34 Visit Stop Time 10:45 Total Visit Minutes 11 Notes Pt states she just returned to bed after ambulating to toilet w/FWW. Reports she just saw doctor and will be dc later today. M4 PT-IP Mobility and Gait Start: 06/25/18 11:38 Freq: NEEDED Status: Active Protocol: Document 06/26/18 16:18 LJ (Rec: 06/26/18 16:36 LJ [id number]) PT-Bed Mobility Assessment Rolling Type of Rolling Roll to Right Supine to Sit Supine to Sit Moderate Assistance 1 Person Assistance Head of Bed Elevated Bedrails Sit to Supine Sit to Supine Moderate Assistance 1 Person Assistance Head of Bed Elevated Bedrails Scooting Scooting to Edge of Bed Minimal Assistance PT-Transfer Assessment Sit to and From Stand Sit to and from Stand Contact Guard Assistance Equipment Transfer Assistive Device Gait Belt Front Wheeled Walker Orthotic/Prosthetic Devices or Brace: No Transfers Transfer Destination Bed Toilet Transfer Ability Level of Assist Minimal Assistance Comments Mobility Comments Pt O2 dropped to 86% (nasal canula) during transfer to [facility] [place] . Return to bed pt required mod assist with LEs and Max assist to scoot to head of bed . O2 dropped to 84% for a short time after returning to bed. O2 increased to 88% after 1 min performing deep breathing. Gait Assessment Gait Gait Assistance Required: Contact Guard Assist Distance (Feet) 3 Able to Maintain Weight Bearing Status Yes During Gait Assistive Devices Assistive Device Gait Belt Front Wheeled Walker Orthotic/Prosthetic Devices or Brace: No Gait Deviations General Gait Pattern Antalgic Decreased Stride Length Decreased Feet Clearance Flexed Trunk Lateral Trunk Lean Step-to Gait Wide Based Gait Factors Limiting Gait Function Factors Limiting Gait Function Decreased Activity Tolerance Decreased Strength Limited Range of Motion Pain Respiratory Distress Comments Gait Comments Pt able to stand step pivot and walk back 2 steps to BSC and return to bed. O2 remained at 86% during ambulation to BSC. O2 returned to 88% while seated on commode. M5 PT-IP Objective Assessments Start: 06/25/18 11:38 Freq: NEEDED Status: Active Protocol: Document 06/25/18 10:30 LR (Rec: 06/25/18 12:02 LR [email or web address]) Orientation Orientation/Cognition Level of Alertness Alert Strength Lower Extremity Strength Assessment Bilaterally Impaired M6 PT-IP Treatment Start: 06/25/18 11:38 Freq: NEEDED Status: Active Protocol: Document 06/26/18 16:18 LJ (Rec: 06/26/18 16:36 LJ [id number]) Physical Therapy Treatment Exercises Exercises Ankle Pumps Gluteal Sets Other Treatments Other Treatment Performed Standing lateral and ant/ posterior weight shifting; small marching steps. Bridging in bed x 2 with Mod assist. M7 PT-IP Assessment and Plan Start: 06/25/18 11:38 Freq: NEEDED Status: Active Protocol: Document 06/26/18 16:36 LJ (Rec: 06/26/18 16:38 LJ [id number]) PT Summary Assessment and Plan Summary Assessment Summary Pt unable to position self in bed. Req's mod assist and max verbal cues for breathing pattern. Shows a great deal of anxiety with movement and breathing. Frequency of Treatment Frequency Of Treatment Twice a Day Treatment Plan Physical Therapy Treatment Plan Bed Mobility Training Transfer Training Gait Training Therapeutic Exercise Balance Retraining Discharge Planning Recommendations To Nursing Amount of Assist Needed 1 Person Assist Discharge Recommendations PT Discharge Recommendations Home with Assistance Home Health SNF Rehab Other Discharge Recommendations Primary caregiver(vanita) is at work most of day, pt will need more care/supervision at this time.
--- NOTE | 2018-06-27 10:52 | PT.IPTN ---
Current Diagnoses Hypoxemia (06/22/18) Abnormal coagulation profile (06/22/18) Physical Therapy Treatment Note M2 PT-IP Current Condition Start: 06/25/18 11:38 Freq: NEEDED Status: Active Protocol: Document 06/25/18 10:30 [facility] (Rec: 06/25/18 12:02 [facility] [email or web address]) Physical Therapy Current Condition Current Condition Evaluation Date 06/25/18 Treatment Diagnosis SOB, weakness M3 PT-IP Subjective Start: 06/25/18 11:38 Freq: NEEDED Status: Active Protocol: Document 06/27/18 10:47 LJ (Rec: 06/27/18 10:49 LJ [id number]) Subjective Physical Therapy Visit Type Type Patient Refusal Visit Start Time 10:34 Visit Stop Time 10:45 Total Visit Minutes 11 Notes Pt states she just returned to bed after ambulating to toilet w/FWW. Reports she just saw doctor and will be dc later today.
[2018-06-27] MEDS: CEFTRIAXONE 1 GM/50 ML FROZ.PIGGY IV (11:31)
[2018-06-27] MEDS: AZITHROMYCIN 500 MG in DEXTROSE 5% IN WATER 250 ML IV (13:29)
--- NOTE | 2018-06-27 14:37 | PC.NURSE ---
Pt discharged to [facility] [employer] [facility] and report called.
--- OUTSIDE RECORDS SUMMARY | 2018-08-03 13:39 | XMS_ITS | Summary of Care ---
:1940 Author Organization [facility] Address [address] [place] [address] Care Team Providers Name Role Phone Miko Calvo Primary Care Provider Reason for Visit Reason Comments Shortness of Breath pt arrives via EMS from [facility]. Pt recently restarted blood thinners for DVTs and started having increasing shortness of breath with room air of 89%. [facility] sent for concerning hgb and hct lab levels and bruising. Abnormal Lab Auth/Cert Status Reason Specialty Diagnoses / Procedures Referred By Contact Referred To Contact Diagnoses NSTEMI (non-ST elevated myocardial infarction) (CMS/HCC) Anemia requiring transfusions Acute kidney injury superimposed on chronic kidney disease (CMS/HCC) Acute anemia Acute anemia Procedures INPATIENT Encounter Details Date Type Department Care Team Description 07/24/2018 - Hospital Encounter [facility] Angela Hoff MD [address], [place] [id number] Acute anemia (Primary Dx); 07/29/2018 [facility] Ray Martin MD [address], [place] [id number] NSTEMI (non-ST elevated myocardial infarction) ([facility]/HCC); and Pediatric Care Richie Moser DO [address], [place] [id number] Acute kidney injury superimposed on chronic kidney disease ( [facility]/HCC); Unit Demand ischemia ([facility]) [address], [place] [id number] Allergies No Known Allergiesas of this encounter Medications Prescription Sig. Disp. Refills Start Date End Date Status calcium carbonate Take 2 tablets Active (TUMS) 200 mg by mouth daily calcium (500 mg) chewable tablet carvedilol (COREG) Take 12.5 mg by Active 12.5 mg tablet mouth 2 (two) times a day with meals cholecalciferol, Take 2,000 Active vitamin D3, 1,000 Units by mouth unit tablet daily ezetimibe (ZETIA) Take 10 mg by Active 10 mg tablet mouth daily predniSONE Take 1 mg by Active (DELTASONE) 1 mg mouth daily tablet hydrALAZINE Take 12.5 mg by Active (APRESOLINE) 25 mg mouth 3 (three) tablet times a day Lacto.acidophilus-B Take 1 capsule Active if.animalis by mouth 2 (PROBIOTIC) 5 (two) times a billion cell day capsule, sprinkle PARoxetine (PAXIL) Take 10 mg by Active 10 mg tablet mouth every morning acetaminophen Take 650 mg by Active (TYLENOL) 325 mg mouth every 4 tablet (four) hours as needed for mild pain nitroglycerin Place 0.4 mg Active (NITROSTAT) 0.4 mg under the SL tablet tongue every 5 (five) minutes as needed for chest pain atorvastatin Take 1 tablet 30 tablet 0 07/29/2018 Active (LIPITOR) 40 mg (40 mg total) 8 tablet by mouth nightly lisinopril Take 1 tablet 30 tablet 0 07/30/2018 Active (PRINIVIL,ZESTRIL) (5 mg total) by 8 5 mg tablet mouth daily torsemide (DEMADEX) Take 2 tablets 60 tablet 0 07/29/2018 Active 20 mg tablet (40 mg total) 8 by mouth daily aspirin 81 mg EC Take 1 tablet 30 tablet 0 07/30/2018 Active tablet (81 mg total) 8 by mouth daily pantoprazole Take 1 tablet 30 tablet 0 07/30/2018 Active (PROTONIX) 20 mg EC (20 mg total) 8 tablet by mouth every morning before breakfast warfarin (COUMADIN) Take 4 mg by Discontinued 4 mg tablet mouth 4 (four) 8 times a week Take as directed per After Visit Summary. warfarin (COUMADIN) Take 6 mg by Discontinued 6 mg tablet mouth 3 (three) 8 times a week Take as directed per After Visit Summary. torsemide (DEMADEX) Take 40 mg by Suspended 20 mg tablet mouth daily 8 lisinopril Take 2.5 mg by Discontinued (PRINIVIL,ZESTRIL) mouth daily 8 2.5 mg tablet as of this encounter Active Problems Problem Noted Date Anemia requiring transfusions 07/24/2018 Acute anemia 07/24/2018 Social History Tobacco Use Types Packs/Day Years Used Date Never Smoker Smokeless Tobacco: Never Used Alcohol Use Drinks/Week oz/Week Comments No Sex Assigned at Date Recorded Not on file as of this encounter Last Filed Vital Signs Vital Sign Reading Time Taken Blood Pressure 119/75 07/29/2018 11:44 AM PST Pulse 81 07/29/2018 11:47 AM PST Temperature 36 ??C (96.8 ??F) 07/29/2018 11:44 AM PST Respiratory Rate 18 07/29/2018 11:44 AM PST Oxygen Saturation 98% 07/29/2018 11:44 AM PST Inhaled Oxygen Concentration - - Weight 101 kg (223 lb 1.7 oz) 07/29/2018 5:01 AM PST Height 157.5 cm (5' 2) 07/24/2018 1:02 PM PST Body Mass Index 40.81 07/29/2018 5:01 AM PST in this encounter Discharge Summaries Richie Moser DO - 07/29/2018 6:39 AM PSTFormatting of this note may be different from the original. Discharge Summary Inpatient Primary Care [facility] Name: Janet Mendez Date of : 1940 Age: 78 y.o. Admit Date: 07/24/2018 Date of Discharge: 07/29/2018 Code Status: DNR PCP: Miko Calvo. Admitting Provider: Ray Martin MD Discharging Provider: Richie Moser DO Hospital Day: 5 Date of Service: 07/29/2018 [facility]ants Cardiology Admission Diagnosis(es) NSTEMI (non-ST elevated myocardial infarction) (CMS/HCC) [I21.4] Anemia requiring transfusions [D64.9] Acute kidney injury superimposed on chronic kidney disease (CMS/HCC) [N17.9, N18.9] Acute anemia [D64.9] Acute anemia [D64.9] Present on Admission: ??? Anemia requiring transfusions ??? Acute anemia Discharge Diagnosis(es) Active Problems: Anemia requiring transfusions Acute anemia Disposition [facility] Pending Tests and other issues requiring follow up Please f/U with Dr. Godinez in 1 week to review med changes Please f/u with your PCP in one week Advanced Care Planning Discussion Held?: No Allergies No Known Allergies Discharge Medications Your medication list ASK your doctor about these medications Instructions Last Dose Given Next Dose Due acetaminophen 325 mg tablet Commonly known as: TYLENOL calcium carbonate 200 mg calcium (500 mg) chewable tablet Commonly known as: TUMS carvedilol 12.5 mg tablet Commonly known as: COREG cholecalciferol (vitamin D3) 1,000 unit tablet ezetimibe 10 mg tablet Commonly known as: ZETIA hydrALAZINE 25 mg tablet Commonly known as: APRESOLINE lisinopril 2.5 mg tablet Commonly known as: PRINIVIL,ZESTRIL nitroglycerin 0.4 mg SL tablet Commonly known as: NITROSTAT PARoxetine 10 mg tablet Commonly known as: PAXIL predniSONE 1 mg tablet Commonly known as: DELTASONE PROBIOTIC 5 billion cell capsule, sprinkle Generic drug: Lacto.acidophilus-Bif.animalis torsemide 20 mg tablet Commonly known as: DEMADEX warfarin 4 mg tablet Commonly known as: COUMADIN warfarin 6 mg tablet Commonly known as: COUMADIN Brief Reason for Admission From the H&P performed by Ray Martin MD on 07/24/2018: Janet Mendez is a 78 y.o. female with past medical history of DVT on warfarin for 3 years, historyof giant cell arteritis, complete heart block status post pacemaker, CKD, chronic systolic CHF, hypertension was sent from [facility] due to generalized weakness and hemoglobin drop noted on labs. Patient states she was diagnosed with DVT 3 years ago and has been on warfarin. She was recently hospitalized on 06/22/18 to [facility] due to hypoxic respiratory failure presumed to be due to CHFexacerbation. INR on presentation to [facility] on 06/22/18 was 10.4. She was discharged to [facility] 3 weeks ago. She states her INR was subtherapeutic for few days last week and was started on bridging Lovenox. She has been on Lovenox for at least 4 or 5 days last dose Friday Patient also has history of giant cell arthritis which was clinically diagnosed in 2014. She's been on prednisone for 3 years which caused significant left hip bone loss requiring left hip replacement in November 2017. Her oncologist has been tapering her prednisone and has been at 1 mg daily for the last 4 weeks and was supposed to be discontinued by now but per patient [facility] staff continued prednisone dispense patient asking to be stopped. She has history of hemmoroid for 58 years and her main symptom is usually pain and very occasional scanty bleeding. She did not have any recent bleeding. Denies any tarry stool. Denies hematemesis. In ED, hemoglobin 6.9, hemoglobin was 6.4 on 07/22. Was 9.8 on 07/14. Creatinine 2.15. Troponin 0.142, 2 PRBCs ordered and admission requested for anemia. Hospital Course by Problem Janet Mendez??is a 78 y.o. female with past medical history of DVT on warfarin for 3 years, history of giant cell arteritis, complete heart block status post pacemaker, CKD, chronic systolic CHF, hypertension was sent from [facility] due to generalized weakness and hemoglobin drop noted on labs. # Acute stress cardiomyopathy due to anemia on chronic systolic CHF,poa stable -EKG sinus rhythm with nonspecific IVCD, troponin elevated at 0.142 at presentation -Echo shows EF 20-25%, severe hypokinesis or akinesis of distal of left ventricle, Consistent with stress cardiomyopathy. Continue carvedilol. Consulted cardiology. hold home torsemide. Started Lasix 40 mg IV twice a day per cardiology.will transition to home torsemide . Prior EF 30-35% -Will try to increase lisinopril as blood pressure allows per cardiology. -Started aspirin and atorvastatin. -On the day of d/c pt is ambulating and free of oxygen. She is feeling better and wanting to # Symptomatic acute anemia requiring transfusion,poa stable -Presented with symptoms of anemia. Hemoglobin 6.9. Recent hemoglobin on 07/14 was 9.8. -Anemia due to abdominal hematoma at Lovenox injection sites due to recent bridging Lovenox. - CT of abdominal wall done shows no discrete hematoma but infiltrated abdominal wall /abdominal bloating edema. Stool occult blood is positive but GI bleed unlikely to be the culprit for anemia. Will consider GI consult if hemoglobin drops further -2 PRBCs transfused in ED. posttransfusion hemoglobin 8.6. H Remained stable after transfusion , does not seem to GI bleed -INR 1.7. Did not give reversal given prior history of DVT -Started aspirin # Abdominal wall hematoma,poa improving -CT scan no discrete hematoma but infiltrated abdominal wall /abdominal bloating edema ?? # ALLYSSA on CKD ,poa -Baseline creatinine 1.7-2.0.??Initial creatinine 2.15. Due to blood loss anemia. -Creatinine improving with transfusion.slightly worse on iv diuresis. -Creatine is 1.96 at d/c # History of DVT,poa -Patient states she only had 1 DVT in 2014. Has been on warfarin. She is not sure if she had hypercoagulable workup. No history of atrial fibrillation mentioned. No clear indication to continue warfarin for life. Will discharge off anticoagulation and PCP is to follow-up and decide. started aspirin 81 mg daily. # History of giant cell arteritis,poa -She was diagnosed with giant cell arthritis in 2014 clinically per patient. Her car spotter is Dr. Ballesteros in [facility]. Long-term prednisone caused bone damage and resulted in left hip replacement in November 2017. [employer] is tapering her prednisone and she was on her final taper phase at1 mg daily for 4 weeks and supposed to be completed at this time. Patient was taking pred[facility]one [facility]daily at [facility] facility. discontinued prednisone. Discharge off prednisone # History of heart block s/p PPM # Chronic systolic CHF chronic -Continue home Coreg, resume lisinopril, torsemide due to ALLYSSA # Hypertension chronic stable -Continue Coreg ? Code Status: DNR/DNI ?? -Acetaminophen as needed for mild pain/fever/headache -Antiemetic as needed -Bowel regimen as needed -Opioid analgesia as needed for moderate to severe pain uncontrolled by other means ?? Patient Status Patient's expected length of stay:??Greater than two midnights Patient is under inpatient??status due to severity of presenting symptoms, complexity of treatment plan, and risk of adverse event. ?? Functional status prior to admission: Independent prior to hospitalization in ??june Functional expectation at discharge (including NSOC): home with rN ? Disposition Patient came from [facility]. requested PT eval, rec home with HH ,SW arranged HH for PT and RN with [facility] . Patient agreeable to plan Objective First recorded vital signs: Temp: 36.7 ??C (98.1 ??F) - BP: 110/51 - Heart Rate: 85 - Resp: 22 - SpO2: 98 % O2 Flow Rate (L/min): 1 L/min Most recent vital signs: Temp: 36 ??C (96.8 ??F) - BP: 110/66 - Heart Rate: 81 - Resp: 18 - SpO2: 95 % O2 Flow Rate (L/min): 0 L/min Physical Exam General; pleasant, obese, NAD Heent: ncat Skin: Large hematoma RLQ, bruising lower abd, Upper arms Legs: 4+/5 strength Arms: Swollen R UE. Minimal swelling Neck: JVD hard to appreciate, no conversational dyspnea Heart: RRR, no s3/s4 Lungs: RLL crackles, no wheezing I have seen and examined Janet Mendez on 07/29/2018. Labs & ECG Hematology Results from last 7 days Lab Units 07/29/18 0549 07/28/18 0536 07/27/18 0611 WBC AUTO x10E3/uL 5.8 6.6 5.0 HEMOGLOBIN g/dL 8.9* 9.2* 8.7* HEMATOCRIT % 29.2* 29.7* 28.8* MCV fL 97 95 95 PLATELETS AUTO x10E3/uL 310 318 307 Coagulation Studies Results from last 7 days Lab Units 07/24/18 1041 INR INR 1.7 Chemistries Results from last 7 days Lab Units 07/28/18 0536 07/27/18 0611 07/26/18 1324 07/25/18 0520 SODIUM mmol/L 137 135 134 133* POTASSIUM mmol/L 5.0 5.0 5.0 4.6 CHLORIDE mmol/L 99 96* 94* 93* CO2 mmol/L 25 25 27 23 BUN mg/dL 76.0* 79.0* 78.0* 77.0* CREATININE mg/dL 2.01* 2.16* 2.05* 1.91* CALCIUM, SERUM mg/dL 9.9 9.4 9.3 9.4 MAGNESIUM mg/dL -- -- -- 2.5 AST U/L 13 14 19 16 ALT U/L 11 13 13 13 BILIRUBIN TOTAL mg/dL 0.9 0.9 1.1 1.0 ALBUMIN g/dL 3.7 3.8 3.7 3.9 TOTAL PROTEIN g/dL 6.9 6.5 6.3 6.6 Estimated Creatinine Clearance: 24.8 mL/min (A) (by C-G formula based on SCr of 2.01 mg/dL (H)). Urinalysis Results from last 7 days Lab Units 07/24/18 1327 UROBILINOGEN, URINALYSIS E.U./dL 0.2 (Normal) RBC, URINALYSIS /HPF 0-2 WBC, URINALYSIS /HPF 0-5 Cardiac Enzymes Results from last 7 days Lab Units 07/24/18 1041 TROPONINT ng/mL 0.142* Lipid Profile Results from last 7 days Lab Units 07/27/18 0611 CHOLESTEROL mg/dL 204* HDL mg/dL 75 LDL CALCULATED mg/dL 106* VLDL CHOLESTEROL mg/dL 23 TRIGLYCERIDES mg/dL 113 Arterial Blood Gases No lab exists for component: ABGFIO2, [id number] ACCUCHECK No results found for: POCGLU MISC LABS No lab exists for component: TSHHIGHSENSI, DILTOT MICROBIOLOGY No lab exists for component: MRSAPCR, CDIFFPCR Important Diagnostic Imaging Ct Abdomen Pelvis Without Contrast Result Date: 07/24/2018 Narrative: [place]. [address] PATIENT NAME: JANET MENDEZ : 1940 GENDER: F EXAM DATE:07/24/2018 13:14 ORDERED FROM : [facility] ORDERING PHYSICIAN: RAY MARTIN CC: -- - - - CONTRAST: READING STATION ID: [id number] mGy: PROCEDURE: CT ABDOMEN PELVIS WITHOUT CONTRAST INDICATIONS: abdominal wall hematoma causing severe anemia TECHNIQUE : Noncontrast 5 mm thick sections acquired from the diaphragms to the symphysis. 5 mm coronal and sagittal reformats were then performed. For radiation dose reduction, the following was used: automated exposure control, adjustment of mA and/or kV according to patient size. COMPARISON: , CT, CT CHEST ABD PEL WO CON, 06/23/2018, 12:04. FINDINGS: Image quality: Excellent. ABDOMEN: Lung bases: Lung bases are abnormal with a patchy pattern of alveolar infiltration again seen within the lower lungs bilaterally, likely mildly improved from the comparison study from 06/23/18. Only a very small portion of the lungs are included on this study. Heart size is normal. Solid organs: Liver is normal in size. Gallbladder contains multiple moderately large gallstones peripherally calcified layering dependently within the gallbladder lumen. Pancreas is normal in contours. Spleen is normal in size. No adrenal nodules. Kidneys are normal in size, without hydronephrosis but there is what appears to be mild nonobstructive nephrolithiasis involving the nondistended calyces of the kidneys bilaterally. The right kidney is normal in size, left kidney is asymmetrically smaller.. Peritoneum and bowel: Unenhancedbowel loops demonstrate normal wall thickness and caliber. No free fluid or air. Nodes and vessels: No retroperitoneal or mesenteric adenopathy by size criteria. Aorta and inferior vena cava are normal in caliber. Miscellaneous: No ventral hernias. PELVIS: Genitourinary: Bladder wall thickness is normal. Anteverted uterus, scattered uterine fibroids with internal dystrophic calcifications partially visualized. Miscellaneous: No inguinal hernias or adenopathy. Patchy areas of subcutaneous fat edema scattered over the lower abdominal and pelvic body wall anteriorly. No significant body wall hematoma is found. Bones: No suspicious bony lesions. No vertebral body compression fractures. IMPRESSION: Several patchy areas of subcutaneous fat edema are present along the lower abdominal and pelvic anterior body wall consistent with sites of injection but a discrete large hematoma aspossible source of reported anemia is not found. Mild degree of patchy alveolar air space infiltration is visualized on the far inferior margin of the lung parenchyma included on this abdomen/pelvis study. This appears to have improved from the comparison CT that included the entire chest 06/23/18.Several moderately large peripherally calcified gallstones are seen within the gallbladder lumen without evidence of acute cholecystitis or biliary obstruction. Small scattered nonobstructive renal collecting system calculi are present bilaterally and several of the calcifications present near the renal sinus bilaterally could represent vascular calcifications instead. Partially visualized anteverted uterus, with uterine fibroids containing dystrophic calcifications. Dictated by: Johnie Carmen M.D. on 07/24/2018 at 14:47 Approved by: Johnie Carmen M.D. on 07/24/2018 at 14:53 Echocardiogram Limited With Contrast Result Date: 07/24/2018 Narrative: [facility] + -----+ Hospital +---------+ : : [address] : : : : [place], : : : : [place] [address] : : : : Phone: [phone] Echocardiogram Report + +:Name: JANET MENDEZ Study Date: 07/24/2018 Height: 62 in : :[facility] Weight: 215 lb : : Gender: Female BSA: 2.0 m2 : :: 1940 Age: 78 yrsBP: 105/56 mmHg: :Reason For Study: DEMAND ISCHEMIA : :Ordering Physician: Boyd : :Hospitalist Performed By: Yelena Corona : :Referring: RAY MARTIN B : +------ + Interpretation Summary A limited 2D echocardiogram was performed to assess LV function in a patient with suspected demand ischemia. The left ventricle is moderately dilated. Left ventricular systolic function is severely reduced. The ejection fraction is estimated to be 20-25%. Contrast examination demonstrates severe hypokinesis or akinesis involving the distal half of the left ventricle with mild hypokinesis but fairly well- preserved contractility at the base of the left ventricle. This pattern is quite consistent with stress cardiomyopathy. The prior examination from June 22 didnot visualize the apex well but the left ventricular systolic function at that point appeared likelynormal and the current pattern suggesting stress cardiomyopathy appears to be new. There is a pacemaker lead in the right ventricle. The right ventricle grossly appears normal in size with probable normal systolic function. There is moderate tricuspid regurgitation. The right ventricular systolic pressure is estimated to be at least 62 mmHg based on an estimated right atrial pressure of 15 mm Hg. There is moderate to severe mitral regurgitation. There is mild aortic stenosis. There is mild aorticregurgitation. No other echocardiographic abnormalities seen. This patient has evidence of severe ventricular dysfunction likely related to stress cardiomyopathy. In addition there appears to be significant worsening in the degree of mitral regurgitation with mild to moderate aortic insufficiency andmild aortic stenosis. Moderately severe pulmonary hypertension also notable. Cardiology consultationsuggested. Procedure: A two-dimensional transthoracic echocardiogram with color flow and Dopplerwas performed in limited views only. The study quality was technically difficult. A contrast injection of Definity was performed to improve assessment of LV function. Comparison is made with the echocardiogram of 06/22/18. The patient was in normal sinus rhythm during the exam. Left Ventricle: The left ventricle is moderately dilated. Left ventricular systolic function is severely reduced. The ejection fraction is estimated to be 20-25%. Contrast examination demonstrates severe hypokinesis or akinesis involving the distal half of the left ventricle with mild hypokinesis but fairly well-preserved contractility at the base of the left ventricle. This pattern is quite consistent with stress cardiomyopathy. The prior examination from June 22 did not visualize the apex well but the left ventricular systolic function at that point appeared likely normal and the current pattern suggesting stress cardiomyopathy appears to be new. Right Ventricle: There is a pacemaker lead in the right ventricle.The right ventricle grossly appears normal in size with probable normal systolic function. Mitral Valve: The mitral valve leaflets appear mildly thickened, but open well. There is moderate to severe mitral regurgitation. Aortic Valve: The aortic valve is trileaflet. There is moderate aortic valve sclerosis. Leaflet mobility is mild to moderately reduced. There is mild aortic stenosis. There is mild aortic regurgitation. Tricuspid Valve: The tricuspid valve is normal. There is moderate tricuspid regurgitation. The right ventricular systolic pressure is estimated to be at least 62 mmHg based jerald estimated right atrial pressure of 15 mm Hg. Great Vessels: The IVC is dilated (diameter is greater than 2.1 cm) and it collapses less than 50% with a sniff. This suggests a high right atrial pressure of 15 mm Hg. Pericardium/ Pleura There is no pericardial effusion. There is no pleural effusion. MMode/2D Measurements & Calculations LVIDd: 5.8 cm IVC diam: 2.3 cm LVIDs: 4.0 cm IVSd: 1.2 cm LVPWd: 1.3 cm LV ceron. diameter/BSA (cm/m^2): 2.9 LV sys. diameter/ BSA (cm/m^2): 2.0 FS: 31.5 % ReadingPhysician:04:33 PM Us Venous Upper Extremity Doppler Right Result Date: 07/29/2018 Narrative: [place]. [address] PATIENT NAME: JANET MENDEZ : 1940 GENDER: F EXAM DATE: 07/29/2018 10:03 ORDERED FROM: [facility] ORDERING PHYSICIAN: RICHIE MOSER CC: -- - - - CONTRAST: READING STATION ID: [id number] mGy: PROCEDURE: US VENOUS UPPER EXTREMITY DOPPLER RIGHT INDICATIONS: swollen, r/o dvt TECHNIQUE: Real-time imaging, as well as color and pulse Doppler interrogation, was performed of the right upper extremity deep veins from the inferior neck to the antecubital fossa. COMPARISON: [facility], CT, CT ABDOMEN PELVIS WITHOUT CONTRAST, 07/24/2018, 13: 14. FINDINGS: The internal jugular vein, visualized portions of the subclavian vein, axillary, and brachial veins are free of intraluminal thrombus. Where physically possible, the veins are normally compressible. Color and pulse Doppler demonstrate normal intraluminal flow, with expected phasicity and pulsatility. Additional scanning of the cephalic and basilic veins of the superficial system demonstrate normal compressibility, without thrombus. IMPRESSION: Negative for deep venous thrombosis. Dictated by: Pako Love M.D. on 07/29/2018 at 10:17 Approved by: Pako Love M.D. on 07/29/2018 at 10:17 Hospital Operative Procedures * No surgery found * This discharge summary has been routed to Miko Calvo via [employer] message or fax. I spent greater than 30 minutes in preparation of discharge for Janet Mendez. Greater than 50% of that time was dedicated to patient counseling and coordination of care. [id number] Progress Note and Home Health Orders IMPORTANT: For orders to be carried out, you must indicate the service needed. Initial certificationand orders must be signed and dated by attending physicians. The Home Health Orders portion of the form for resumption of care or an update to the initial certification can be completed by any provider. Patient Name: Janet Mendez Patient : 1940 Anticipated date of discharge (applies only to hospital or facility): Requested Start of Care Date: Within 24 hours of discharge Attending physician expected to follow patient (first and last name): PCP Acute Physical Therapy Recommendation Post-discharge recommendation: Home with assist, Home PT [id number] Encounter occurred on: Is this visit related to the primary reason the patient requires home health services? Yes Clinical Findings Patient's medical condition or diagnosis of stress cardiomyopathy, symptomatic anemia, Systolic Heart Failure results in: ('X' all that apply) (x ) Generalized weakness and fatigue ( ) Immune-compromised (x ) Instability (x ) Muscle weakness ( ) Non-weight or partial weight bearing ( ) Pain with ambulation (x ) Shortness of breath ( ) Unsteady gait ( ) Wound infection or non-healing wound ( ) Other: Homebound Status Due to the above stated illness, injury or surgical procedure (medical condition or diagnosis) and associated clinical findings, the patient is homebound because of his/her inability to leave home except with aid of a supportive device and/or person AND leaving the home requires a considerable and taxing effort or is medically contraindicated. REQUIRED: Must complete both sections of this table to meet homebound eligibility criteria. . Patient requires the following assistance to leave the home: ('X' all that apply ) ( ) Aid of another person ( ) Cane ( ) Medically contraindicated ( x) Walker ( ) Wheelchair AND (required). Patient cannot leave the home or requires assistance to leave the home because: ('X' all that apply) ( ) Cognitive deficits impact judgment, impair ability to safely navigate and prevent decision making for safety ( ) High fall risk due to gait instability (x ) Muscle weakness ( ) Patient is bedbound due to: ( ) Recent lower/upper extremity surgical procedure results in instability, weakness, non-weight bearing, and/or pain with ambulation (x ) Shortness of breath/distress after ambulating more than 10 feet results in high risk for falling ( ) Other: Standard Parameters for Discharge Weight: Gain of more than 3 pounds in 1 day or 5 pounds in 1 week. Blood Pressure: Systolic greater than 150 or less than 90; diastolic greater than 90 or less than 50. Pulse: Greater than 100 or less than 60. Oxygen Saturation: Less than 88%. Blood Glucose: Less than 70 or greater than 200. Home Healthcare Orders Residential ('X' all that apply) ( ) Anticoagulation ( ) Cardiovascular Cardiopulmonary (CV/CP) Assessment/Monitoring ( ) Diabetes Mellitus Assessment/Teaching (x ) Medication Management (specify): ( ) New cardiovascular medications ( ) Wound Care (specify wound care and treatment): ( ) Other: Infusion Therapy ('X' all that apply) ( ) IV medications (i.e.: antibiotics, chemotherapy, etc.) Name and dosage: Frequency and duration: Type of line: Location: Date of Insertion: ( ) TPN (requires a completed TPN Order Form indicating type of formula) Start Date: Type of line: Location: Date of Insertion: ( ) Cathflo?? (Alteplase) 2mg for each occluded lumen, per gill box operator instruction, as needed, while patient is on IV therapy. ( ) Tube Feeding (requires a completed Tube Feeding Order Form indicating type of formula) Start Date: Date of Insertion: Type of Tube: PEG PEJ Other (specify): Labs ('X' all that apply) ( ) Venipuncture (specify): ( ) PT / INR: times / week. May use PT/INR meter. Planned date for first INR: Goal INR Range: ( ) Other Labs - specify type and frequency: Therapy Orders ('X' all that apply) ( ) Evaluate and treat aphagia ( ) Evaluate and treat dysphagia ( x) Evaluate for assistive devices and/or environmental modifications needed to address ADL deficits to improve safety with transfers and ambulation ( ) Increase strength and endurance and restore range of motion status post surgery (x ) Occupational Therapy ( x) Physical Therapy (x ) Physical Therapy assess for Occupational Therapy ( x) Provide gait training, strengthening and/or balance exercises to restore the patient's abilityto walk safely without pain (x ) Provide maintenance therapy to prevent or slow a declining condition ( ) Speech Language Pathology (x ) Teach the patient caregiver compensatory environmental modifications for safety (x) Teach the patient caregiver compensatory strategies for cognitive deficits ( ) Cart Driver (Must also have [facility], physical therapy or speech therapy ordered) (x ) Home Health Aide (Not CHEMICAL RECLAMATION EQUIPMENT OPERATOR service; must also have [facility], physical therapy or speech therapy ordered) Electronically signed by: Richie Moser DO 07/29/2018 at 6:39 AM Note: Initial certification and orders must be signed and dated by attending physicians. The home health orders portion of the form for resumption of care or an update to the initial certification can be completed by any provider. Portions of the record may have been created with voice recognition software. Occasional wrong-word or ???[id number]??? substitutions and/or gender transpositions may have occurred due to the inherent limitations of voice recognition software. Read the chart carefully and recognize, using context, where substitutions have occurred. Thank you for allowing me to participate in the care of Janet Mendez.. Electronically signed by: Richie Moser DO 07/29/2018 at 6:39 AM in this encounter Discharge Instructions Discharge Instr - Appointments - Zenia Matamoros - 07/29/2018 3:04 PM PSTYou are scheduled [facility] 10[facility]30 [facility] Sunday 08/05.Richie Moser DO - 07/29/2018Please f/U with Dr. Godinez in 1 week Please f/u with your PCP in one weekin this encounter Progress Notes Karo Brumfield MSW - 07/29/2018 2:45 PM PSTFormatting of this note may be different from the original. SOCIAL WORK: DISCHARGE Data: EMR reviewed. Pt is on day 5 for Problem List Items Addressed This Visit Acute anemia - Primary Other Visit Diagnoses NSTEMI (non-ST elevated myocardial infarction) ([facility]) Relevant Medications carvedilol (COREG) 12.5 mg tablet ezetimibe (ZETIA) 10 mg tablet lisinopril (PRINIVIL,ZESTRIL) 2.5 mg tablet hydrALAZINE (APRESOLINE) 25 mg tablet nitroglycerin (NITROSTAT) 0.4 mg SL tablet atorvastatin (LIPITOR) 40 mg tablet lisinopril (PRINIVIL,ZESTRIL) 5 mg tablet (Start on 07/30/2018) aspirin 81 mg EC tablet (Start on 07/30/2018) Acute kidney injury superimposed on chronic kidney disease ([facility]) Relevant Medications lisinopril (PRINIVIL,ZESTRIL) 2.5 mg tablet lisinopril (PRINIVIL,ZESTRIL) 5 mg tablet (Start on 07/30/2018) torsemide (DEMADEX) 20 mg tablet Demand ischemia ([facility]) Relevant Medications carvedilol (COREG) 12.5 mg tablet ezetimibe (ZETIA) 10 mg tablet lisinopril (PRINIVIL,ZESTRIL) 2.5 mg tablet hydrALAZINE (APRESOLINE) 25 mg tablet nitroglycerin (NITROSTAT) 0.4 mg SL tablet atorvastatin (LIPITOR) 40 mg tablet lisinopril (PRINIVIL,ZESTRIL) 5 mg tablet (Start on 07/30/2018) aspirin 81 mg EC tablet (Start on 07/30/2018) Other Relevant Orders ECHOCARDIOGRAM LIMITED WITH CONTRAST (Completed) Pt is medically ready for discharge. Pt will be discharging home. [facility] ATTENDANT met with patient and daughter Sadia at bedside to confirm discharge plan and assess for unidentified needs. They are agreeable to this discharge plan. They do not identify barriers or concerns to this plan. ELEUTERIO provided pt and daughter with priority boarding pass for [facility] and also faxed in copy for [facility] Department of Transport. ELEUTERIO called [facility] [phone] and left a message informing them of discharge. ELEUTERIO faxed in discharge orders and F2F for RN,PT, and OT to [phone]. All updated and agreeable to plan. Assessment: alert and oriented x4. Per LOT ATTENDANT interactions, Physician Documentation and Nursing Documentation, patient has capacity for self care and has decisional capacity at this time. Plan: Pt to discharge home today via POV. LOT ATTENDANT discussed d/c with pt/daughter and [facility]. All updated and agreeable to plan. BERNABE Shoemaker Michelle E, LOT ATTENDANT - 07/29/2018 12:21 PM PSTFormatting of this note may be different from the original. SOCIAL WORK: PROGRESS NOTE Data: EMR reviewed. Pt is on day 5 for Problem List Items Addressed This Visit Acute anemia - Primary Other Visit Diagnoses NSTEMI (non-ST elevated myocardial infarction) ([facility]) Relevant Medications carvedilol (COREG) 12.5 mg tablet ezetimibe (ZETIA) 10 mg tablet lisinopril (PRINIVIL,ZESTRIL) 2.5 mg tablet hydrALAZINE (APRESOLINE) 25 mg tablet nitroglycerin (NITROSTAT) 0.4 mg SL tablet Acute kidney injury superimposed on chronic kidney disease ([facility]) Relevant Medications torsemide (DEMADEX) 20 mg tablet lisinopril (PRINIVIL,ZESTRIL) 2.5 mg tablet Demand ischemia ([facility]) Relevant Medications carvedilol (COREG) 12.5 mg tablet ezetimibe (ZETIA) 10 mg tablet lisinopril (PRINIVIL,ZESTRIL) 2.5 mg tablet hydrALAZINE (APRESOLINE) 25 mg tablet nitroglycerin (NITROSTAT) 0.4 mg SL tablet Other Relevant Orders ECHOCARDIOGRAM LIMITED WITH CONTRAST (Completed) Patient is not medically stable for discharge at this time. Per discussion with provider, discharge needs include Home health. Social Work consults to coordinate these services have been ordered by physician at this time. ELEUTERIO informed by UR specialist that [facility] needs pt's address. ELEUTERIO spoke with pt who confirms her address is [address] [place] [address]. ELEUTERIO called [facility] [phone] and left a message with address for them. Pt confirms her daughter will provide transport and pt will need a priority boarding pass. SW will continue to follow. Barriers to Discharge Include: none Assessment: alert and oriented x4 Per LOT ATTENDANT interactions, Physician Documentation and Nursing Documentation, patient has capacity for self care and has decisional capacity at this time. Plan: Anticipate patient to discharge to home with daughter when medically stable via POV. Referral made to [facility]. LOT ATTENDANT will continue to follow pt's clinical course. Karo Brumfield, LOT ATTENDANT Maria L Bailey MDiv - 07/28/2018 4:47 PM PSTSpiritual care: follow up Conversational visit. Pt pleasant/polite, expressing pain and concern about scope of her abdominal pain. Pt repeated her hopefulness about discharge home tomorrow but also considered her concerns about being a burden. She reflected further about experiencing grief--noting that she has had little opportunity to fully cry/express grief at [facility]. Pt appreciative of spiritual care follow Kathleen Stanton, RD - 2017 3:36 PM PSTLOW RISK NUTRITION NOTE: ASSESS: 78 YO female admitted for anemia requiring transfusions. Pt with good po intake eating 50-100% of most meals. LABS: Reviewed.BUN 76, Cr 2.01. CURRENT WT: 102 kg. DIET: General. Po intake 50-100% of meals. NUTRITION DIAGNOSIS: 1.) No nutritional diagnosis at this time. NUTRITION INTERVENTION: 1.) Continue current diet. Consider adding heart healthy, renal diet modifiers if needed. MONITOR / EVAL: Po intake, labs, nutritional status. Follow per low nutritional risk guidelines. Ray Martin MD - 07/28/2018 3:12 PM PSTFormatting of this note may be different from the original. Progress Note Inpatient Primary Care [facility] Patient Name: Janet Mendez Date of : 1940 Age: 78 y.o. Code Status: DNR Primary Care Physician: Miko Calvo Admitting Provider: Ray Martin MD Attending Provider: Ray Martin MD Admit Date: 07/24/2018 Date of Service: 07/28/2018 Hospital Day: 4 Active Problems Patient Active Problem List Diagnosis ??? Anemia requiring transfusions ??? Acute anemia Assessment and Plan Janet Mendez is a 78 y.o. female with past medical history of DVT on warfarin for 3 years, historyof giant cell arteritis, complete heart block status post pacemaker, CKD, chronic systolic CHF, hypertension was sent from [facility] due to generalized weakness and hemoglobin drop noted on labs. # Acute stress cardiomyopathy due to anemia on chronic systolic CHF,poa -EKG sinus rhythm with nonspecific IVCD, troponin elevated at 0.142 at presentation -Echo shows EF 20-25%, severe hypokinesis or akinesis of distal of left ventricle, Consistent with stress cardiomyopathy. Continue carvedilol. Consulted cardiology. hold home torsemide. Started Lasix 40 mg IV twice a day per cardiology.will transition to home torsemide . Prior EF 30-35% -Will try to increase lisinopril as blood pressure allows per cardiology. -Started aspirin and atorvastatin. # Symptomatic acute anemia requiring transfusion,poa -Presented with symptoms of anemia. Hemoglobin 6.9. Recent hemoglobin on 07/14 was 9.8. -Anemia due to abdominal hematoma at Lovenox injection sites due to recent bridging Lovenox. - CT of abdominal wall done shows no discrete hematoma but infiltrated abdominal wall /abdominal bloating edema. Stool occult blood is positive but GI bleed unlikely to be the culprit for anemia. Will consider GI consult if hemoglobin drops further -2 PRBCs transfused in ED. posttransfusion hemoglobin 8.6. H Remained stable after transfusion , does not seem to GI bleed -INR 1.7. Did not give reversal given prior history of DVT -Started aspirin # Abdominal wall hematoma,poa -CT scan no discrete hematoma but infiltrated abdominal wall /abdominal bloating edema # ALLYSSA on CKD ,poa -Baseline creatinine 1.6 . Initial creatinine 2.15. Due to blood loss anemia. -Creatinine improving with transfusion.slightly worse on iv diuresis. # History of DVT,poa -Patient states she only had 1 DVT in 2014. Has been on warfarin. She is not sure if she had hypercoagulable workup. No history of atrial fibrillation mentioned. No clear indication to continue warfarin for life. Will discharge off anticoagulation and PCP is to follow-up and decide. started aspirin 81 mg daily. # History of giant cell arteritis,poa -She was diagnosed with giant cell arthritis in 2014 clinically per patient. Her car spotter is Dr. Ballesteros in [facility]. Long-term prednisone caused bone damage and resulted in left hip replacement in November 2017. Lay Ups Assembler is tapering her prednisone and she was on her final taper phase at1 mg daily for 4 weeks and supposed to be completed at this time. Patient was taking pred[facility]one [facility]daily at [facility] facility. discontinued prednisone. Discharge off prednisone # History of heart block s/p PPM # Chronic systolic CHF -Continue home Coreg, resume lisinopril, torsemide due to ALLYSSA # Hypertension -Continue Coreg VTE Prophylaxis Heparin sc ok ? Code Status: DNR/DNI ?? -Acetaminophen as needed for mild pain/fever/headache -Antiemetic as needed -Bowel regimen as needed -Opioid analgesia as needed for moderate to severe pain uncontrolled by other means ?? Patient Status Patient's expected length of stay: Greater than two midnights Patient is under inpatient status due to severity of presenting symptoms, complexity of treatment plan, and risk of adverse event. ?? Functional status prior to admission: Independent prior to hospitalization in end june Functional expectation at discharge (including NSOC): Back to [facility] Disposition Patient came from [facility]. requested PT dimitri, rec home with ,SW arranged for PT and RN with [facility] . Patient agreeable to plan Current Hospital Medications Allergies No Known Allergies Medications Scheduled aspirin 81 mg oral Daily atorvastatin 40 mg oral Nightly calcium carbonate 1,000 mg oral Daily carvedilol 12.5 mg oral BID with meals cholecalciferol (vitamin D3) 2,000 Units oral Daily ezetimibe 10 mg oral Daily heparin (porcine) 5,000 Units subcutaneous q12h LILLY hydrALAZINE 12.5 mg oral TID [START ON 07/29/2018] lisinopril 5 mg oral Daily nystatin Topical BID pantoprazole 20 mg oral q AM AC PARoxetine 10 mg oral q AM torsemide 40 mg oral Daily As needed ??? acetaminophen ??? docusate sodium ??? ondansetron ??? senna ??? Prepare/Crossmatch RBC: 2 Units AND Transfuse RBC: 2 Units AND [ ] Nursing communication: Ensure provider has obtained Informed Consent for Blood Transfusion AND Vital Signs AND sodium chloride 0.9 % AND [] Nursing Communication: Transfusion Reaction Management ??? Insert peripheral IV AND Maintain IV access AND Saline lock IV AND sodium chloride Infusions Subjective Patient's Update Generalized weakness improving Interval Update Hemoglobin stable Objective BP 112/67 (BP Location: Left arm, Patient Position: Semi-Marcum's) Pulse 80 Temp 36.3 ??C (97.3 ??F) (Oral) Resp 18 Ht 1.575 m Wt 102 kg SpO2 97% BMI 41.33 kg/m?? Intake/Output Summary (Last 24 hours) at 07/28/18 1512 Last data filed at 07/28/18 0900 Gross per 24 hour Intake 550 ml Output 525 ml Net 25 ml Physical Exam Constitutional: She is oriented to person, place, and time. She appears well- developed and well-nourished. HENT: Head: Normocephalic and atraumatic. Eyes: Pupils are equal, round, and reactive to light. EOM are normal. Neck: Normal range of motion. Neck supple. Cardiovascular: Normal rate, regular rhythm and normal heart sounds. Pulmonary/Chest: Effort normal and breath sounds normal. Abdominal: Lower abdominal wall ecchymosis with bilateral hematoma on abdominal wall. Mildly Tender and firm Neurological: She is alert and oriented to person, place, and time. Skin: Ecchymosis on forearm and lower abdominal wall Psychiatric: She has a normal mood and affect. Labs & ECG Hematology Results from last 7 days Lab Units 07/28/18 0536 07/27/18 0611 07/26/18 1324 WBC AUTO x10E3/uL 6.6 5.0 5.8 HEMOGLOBIN g/dL 9.2* 8.7* 8.7* HEMATOCRIT % 29.7* 28.8* 27.9* MCV fL 95 95 95 PLATELETS AUTO x10E3/uL 318 307 312 Coagulation Studies Results from last 7 days Lab Units 07/24/18 1041 INR INR 1.7 Chemistries Results from last 7 days Lab Units 07/28/18 0536 07/27/18 0611 07/26/18 1324 07/25/18 0520 SODIUM mmol/L 137 135 134 133* POTASSIUM mmol/L 5.0 5.0 5.0 4.6 CHLORIDE mmol/L 99 96* 94* 93* CO2 mmol/L 25 25 27 23 BUN mg/dL 76.0* 79.0* 78.0* 77.0* CREATININE mg/dL 2.01* 2.16* 2.05* 1.91* CALCIUM, SERUM mg/dL 9.9 9.4 9.3 9.4 MAGNESIUM mg/dL -- -- -- 2.5 AST U/L 13 14 19 16 ALT U/L 11 13 13 13 BILIRUBIN TOTAL mg/dL 0.9 0.9 1.1 1.0 ALBUMIN g/dL 3.7 3.8 3.7 3.9 TOTAL PROTEIN g/dL 6.9 6.5 6.3 6.6 Estimated Creatinine Clearance: 25.1 mL/min (A) (by C-G formula based on SCr of 2.01 mg/dL (H)). Urinalysis Results from last 7 days Lab Units 07/24/18 1327 UROBILINOGEN, URINALYSIS E.U./dL 0.2 (Normal) RBC, URINALYSIS /HPF 0-2 WBC, URINALYSIS /HPF 0-5 Cardiac Enzymes Results from last 7 days Lab Units 07/24/18 1041 TROPONINT ng/mL 0.142* Lipid Profile Results from last 7 days Lab Units 07/27/18 0611 CHOLESTEROL mg/dL 204* HDL mg/dL 75 LDL CALCULATED mg/dL 106* VLDL CHOLESTEROL mg/dL 23 TRIGLYCERIDES mg/dL 113 Arterial Blood Gases No lab exists for component: ABGFIO2, [id number] ACCUCHECK No results found for: POCGLU MISC LABS No lab exists for component: TSHHIGHSENSI, DILTOT MICROBIOLOGY No lab exists for component: MRSAPCR, CDIFFPCR Diagnostic Imaging PROCEDURE: CT ABDOMEN PELVIS WITHOUT CONTRAST INDICATIONS: abdominal wall hematoma causing severe anemia TECHNIQUE: Noncontrast 5 mm thick sections acquired from the diaphragms to the symphysis. 5 mm coronal and sagittal reformats were then performed. For radiation dose reduction, the following was used: automated exposure control, adjustment of mA and/or kV according to patient size. COMPARISON: , CT, CT CHEST ABD PEL WO CON, 06/23/2018, 12:04. FINDINGS: Image quality: Excellent. ABDOMEN: Lung bases: Lung bases are abnormal with a patchy pattern of alveolar infiltration again seen within the lower lungs bilaterally, likely mildly improved from the comparison study from 06/23/18. Only a very small portion of the lungs are included on this study. Heart size is normal. Solid organs: Liver is normal in size. Gallbladder contains multiple moderately large gallstones peripherally calcified layering dependently within the gallbladder lumen. Pancreas is normal in contours. Spleen is normal in size. No adrenal nodules. Kidneys are normal in size, without hydronephrosis but there is what appears to be mild nonobstructive nephrolithiasis involving the nondistended calyces of the kidneys bilaterally. The right kidney is normal in size, left kidney is asymmetrically smaller.. Peritoneum and bowel: Unenhanced bowel loops demonstrate normal wall thickness and caliber. No free fluid or air. Nodes and vessels: No retroperitoneal or mesenteric adenopathy by size criteria. Aorta and inferior vena cava are normal in caliber. Miscellaneous: No ventral hernias. PELVIS: Genitourinary: Bladder wall thickness is normal. Anteverted uterus, scattered uterine fibroids with internal dystrophic calcifications partially visualized. Miscellaneous: No inguinal hernias or adenopathy. Patchy areas of subcutaneous fat edema scatteredover the lower abdominal and pelvic body wall anteriorly. No significant body wall hematoma is found. Bones: No suspicious bony lesions. No vertebral body compression fractures. IMPRESSION: Several patchy areas of subcutaneous fat edema are present along the lower abdominal andpelvic anterior body wall consistent with sites of injection but a discrete large hematoma as possible source of reported anemia is not found. Mild degree of patchy alveolar air space infiltration is visualized on the far inferior margin of the lung parenchyma included on this abdomen/pelvis study. This appears to have improved from the comparison CT that included the entire chest 06/23/18. Several moderately large peripherally calcified gallstones are seen within the gallbladder lumen without evidence of acute cholecystitis or biliary obstruction. Small scattered nonobstructive renal collecting system calculi are present bilaterally and several of the calcifications present near the renal sinus bilaterally could represent vascular calcifications instead. Partially visualized anteverted uterus, with uterine fibroids containing dystrophic calcifications. Dictated by: Johnie Carmen M.D. on 07/24/2018 at 14:47 Echo 07/24/18 Interpretation Summary A limited 2D echocardiogram was performed to assess LV function in a patient with suspected demand ischemia. The left ventricle is moderately dilated. Left ventricular systolic function is severely reduced. The ejection fraction is estimated to be 20-25%. Contrast examination demonstrates severe hypokinesis or akinesis involving the distal half of the left ventricle with mild hypokinesis but fairly well- preserved contractility at the base of the left ventricle. This pattern is quite consistent with stress cardiomyopathy. The prior examination from June 22 did not visualize the apex well but the left ventricular systolic function at that point appeared likely normal and the current pattern suggesting stress cardiomyopathy appears to be new. There is a pacemaker lead in the right ventricle. The right ventricle grossly appears normal in size with probable normal systolic function. There is moderate tricuspid regurgitation. The right ventricular systolic pressure is estimated to be at least 62 mmHg based on an estimated right atrial pressure of 15 mm Hg. There is moderate to severe mitral regurgitation. There is mild aortic stenosis. There is mild aortic regurgitation. No other echocardiographic abnormalities seen. This patient has evidence of severe ventricular dysfunction likely related to stress cardiomyopathy. In addition there appears to be significant worsening in the degree of mitral regurgitation with mild to moderate aortic insufficiency and mild aortic stenosis. Moderately severe pulmonary hypertension also notable. Cardiology consultation suggested. Electronically signed by: Ray Martin MD 07/28/2018 at 3:12 PM Bhavana Schrader 07/28/2018 1:03 PM PSTFormatting of this note may be different from the original. Inpatient Physical Therapy Treatment Note Patient Name: Janet Mendez MR#: [id number] Today's Date: 07/28/2018 PT Last Visit PT Received On: 07/28/18 SQUAD BOSS Visit Count: 2 Precautions General Precautions: falls risk Subjective: Cognition Overall Cognitive Status: Within Functional Limits Orientation Level: Oriented X4 Safety Judgment: Good awareness of safety precautions Pain Assessment Pain Assessment: No/denies pain Pain Score: (no c/o pain) Objective/Interventions: Mobility Supine to Sit: Modified independent with railing, Contact guard assistance (HOB elevated 60deg, 1 railing, HH assist) Sit to Supine: (pt returned to chair) Sit to Stand: Stand by assistance (x3) Sit-Stand Devices Used: Front wheeled walker Stand to Sit: Stand by assistance Stand-Sit Devices Used: Front wheeled walker Stand Pivot Transfers: Stand by assistance (to [facility]) Stand Pivot: Devices Used: Front wheeled walker Ambulation: Stand by assistance (VC for upright posture) Ambulation: Devices Used: Front wheeled walker Ambulation Distance (Feet): 160 Feet (80ft x 2, occasional standing rest breaks) Standing Balance: Stand by assistance Goals and Progress: Plan Assessment: Pt found resting in bed and agreeable to skilled PT. Pt transferred supine to sit HOB 60deg mimicking recliner sleeping at baseline w/ use of one HH assist and 1 railing. Pt transferred toBSC SBA w/ good awareness of safety demonstrating proper eccentric control while sitting. Pt amb 2x80 ft w/ WC to follow w/ occasional standing rest breaks due to reported LE mm fatigue. Pt had no c/o of dizziness or shortness of breath during session. Pt returned to recliner chair, call light w/in reach, NSG notified. Rec home w/ assist when medically stable and PT 2-3x/wk for continued rehab for functional mobility and LE strengthening. Progress: Progressing toward goals IP Therapy Problems (Active) Problem: Physical Therapy - Adult Goal Priority Disciplines By Discharge: Performs mobility at highest level of function for planned discharge setting. See evaluation for individualized goals. PT Description: 1.pt will be able to perform ambulation for 50' w/FWW or least restrictive device modified independently 2. Pt will be able to perform bed mobility modified independently Plan: Recommendation IP PT Status: (!) 1 PT Frequency (in-house): Daily Equipment (DME) Recommended: Walker Walker Type: Front wheeled walker Post-discharge recommendation: Home with assist, Home PT Discharge Transportation: Private vehicle, Cabulance PT Frequency upon discharge: 2-3x/wk Electronically signed by Bhavana Schrader Associated attestation - Roxanne Godoy SQUAD BOSS - 07/28/2018 2:00 PM PSTI was the supervising geophysical computer in the delivery of the service.Maria L Bailey MDiv - 07/27/2018 5:58 PM PSTSpiritual care: assignment through epic Conversational visit. Pt reflective about recent upwelling of grief (elio over 's --last December) and also pt's sense of purposefulness in personal project. 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 She shared her spiritual interests and qualities that have led her to introspection and satisfaction with life, largely. Pt anticipating going home to [place] and very happy about this plan. Pt requested prayer. Appreciative of spiritual care.Karo Brumfield MSW - 07/27/2018 2:54 PM PSTFormatting of this note may be different from the original. SOCIAL WORK: PROGRESS NOTE Data: EMR reviewed. Pt is on day 3 for Problem List Items Addressed This Visit Acute anemia - Primary Other Visit Diagnoses NSTEMI (non-ST elevated myocardial infarction) (CMS/HCC) Relevant Medications carvedilol (COREG) 12.5 mg tablet ezetimibe (ZETIA) 10 mg tablet lisinopril (PRINIVIL,ZESTRIL) 2.5 mg tablet hydrALAZINE (APRESOLINE) 25 mg tablet nitroglycerin (NITROSTAT) 0.4 mg SL tablet Acute kidney injury superimposed on chronic kidney disease (CMS/HCC) Relevant Medications torsemide (DEMADEX) 20 mg tablet lisinopril (PRINIVIL,ZESTRIL) 2.5 mg tablet Demand ischemia (CMS/[facility]) Relevant Medications carvedilol (COREG) 12.5 mg tablet ezetimibe (ZETIA) 10 mg tablet lisinopril (PRINIVIL,ZESTRIL) 2.5 mg tablet hydrALAZINE (APRESOLINE) 25 mg tablet nitroglycerin (NITROSTAT) 0.4 mg SL tablet Other Relevant Orders ECHOCARDIOGRAM LIMITED WITH CONTRAST (Completed) Patient is not medically stable for discharge at this time. Per discussion with provider, discharge needs include Home health. Social Work consults to coordinate these services have been ordered by physician at this time. PT has cleared pt for home with services. UR specialist made referral to [facility] today. SW to continue to follow. Barriers to Discharge Include: none Assessment: alert and oriented x4 Per LOT ATTENDANT interactions, Physician Documentation and Nursing Documentation, patient has capacity for self care and has decisional capacity at this time. Plan: Anticipate patient to discharge to home once medically stable via POV. Referral made to [facility]. LOT ATTENDANT will continue to follow pt's clinical course. Karo Brumfield, LOT ATTENDANT Ray Martin MD - 07/27/2018 2:12 PM PSTFormatting of this note may be different from the original. Progress Note Inpatient Primary Care [facility] Patient Name: Janet Mendez Date of : 1940 Age: 78 y.o. Code Status: DNR Primary Care Physician: Miko Calvo Admitting Provider: Ray Martin MD Attending Provider: Ray Martin MD Admit Date: 07/24/2018 Date of Service: 07/27/2018 Hospital Day: 3 Active Problems Patient Active Problem List Diagnosis ??? Anemia requiring transfusions ??? Acute anemia Assessment and Plan Janet Mendez is a 78 y.o. female with past medical history of DVT on warfarin for 3 years, historyof giant cell arteritis, complete heart block status post pacemaker, CKD, chronic systolic CHF, hypertension was sent from [facility] due to generalized weakness and hemoglobin drop noted on labs. # Acute stress cardiomyopathy due to anemia on chronic systolic CHF,poa -EKG sinus rhythm with nonspecific IVCD, troponin elevated at 0.142 at presentation -Echo shows EF 20-25%, severe hypokinesis or akinesis of distal of left ventricle, Consistent with stress cardiomyopathy. Continue carvedilol. Consulted cardiology. hold home torsemide. Started Lasix 40 mg IV twice a day per cardiology.will lower to daily tomorrow . Prior EF 30-35% -Will try to increase lisinopril as blood pressure allows per cardiology. -Started aspirin and atorvastatin. # Symptomatic acute anemia requiring transfusion,poa -Presented with symptoms of anemia. Hemoglobin 6.9. Recent hemoglobin on 07/14 was 9.8. -Anemia due to abdominal hematoma at Lovenox injection sites due to recent bridging Lovenox. - CT of abdominal wall done shows no discrete hematoma but infiltrated abdominal wall /abdominal bloating edema. Stool occult blood is positive but GI bleed unlikely to be the culprit for anemia. Will consider GI consult if hemoglobin drops further -2 PRBCs transfused in ED. posttransfusion hemoglobin 8.6 -INR 1.7. Did not give reversal given prior history of DVT -Started aspirin # Abdominal wall hematoma,poa -CT scan no discrete hematoma but infiltrated abdominal wall /abdominal bloating edema # ALLYSSA on CKD ,poa -Baseline creatinine 1.6 . Initial creatinine 2.15. Due to blood loss anemia. -Creatinine improving with transfusion.slightly worse on iv diuresis. # History of DVT,poa -Patient states she only had 1 DVT in 2015. Has been on warfarin. She is not sure if she had hypercoagulable workup. No history of atrial fibrillation mentioned. No clear indication to continue warfarin for life. Will discharge off anticoagulation and PCP is to follow-up and decide. started aspirin 81 mg daily. # History of giant cell arteritis,poa -She was diagnosed with giant cell arthritis in 2015 clinically per patient. Her car spotter is Dr. Ballesteros in [facility]. Long-term prednisone caused bone damage and resulted in left hip replacement in November 2017. [employer] is tapering her prednisone and she was on her final taper phase at1 mg daily for 4 weeks and supposed to be completed at this time. Patient was taking prednisone 1 mgdaily at [facility] facility. discontinued prednisone. Discharge off prednisone # History of heart block s/p PPM # Chronic systolic CHF -Continue home Coreg, resume lisinopril, torsemide due to ALLYSSA # Hypertension -Continue Coreg VTE Prophylaxis Heparin sc ok ? Code Status: DNR/DNI ?? -Acetaminophen as needed for mild pain/fever/headache -Antiemetic as needed -Bowel regimen as needed -Opioid analgesia as needed for moderate to severe pain uncontrolled by other means ?? Patient Status Patient's expected length of stay: Greater than two midnights Patient is under inpatient status due to severity of presenting symptoms, complexity of treatment plan, and risk of adverse event. ?? Functional status prior to admission: Independent prior to hospitalization in end june Functional expectation at discharge (including NSOC): Back to [facility] Disposition Patient came from [facility]. requested PT dimitri, will discharge her to home with home health for PT and nursing. Patient agreeable to plan. Current Hospital Medications Allergies No Known Allergies Medications Scheduled aspirin 81 mg oral Daily atorvastatin 40 mg oral Nightly calcium carbonate 1,000 mg oral Daily carvedilol 12.5 mg oral BID with meals cholecalciferol (vitamin D3) 2,000 Units oral Daily ezetimibe 10 mg oral Daily [START ON 07/28/2018] furosemide 40 mg intravenous Daily heparin (porcine) 5,000 Units subcutaneous q12h LILLY hydrALAZINE 12.5 mg oral TID lisinopril 2.5 mg oral Daily pantoprazole 20 mg oral q AM AC PARoxetine 10 mg oral q AM As needed ??? acetaminophen ??? docusate sodium ??? ondansetron ??? senna ??? Prepare/Crossmatch RBC: 2 Units AND Transfuse RBC: 2 Units AND [ ] Nursing communication: Ensure provider has obtained Informed Consent for Blood Transfusion AND Vital Signs AND sodium chloride 0.9 % AND [] Nursing Communication: Transfusion Reaction Management ??? Insert peripheral IV AND Maintain IV access AND Saline lock IV AND sodium chloride Infusions Subjective Patient's Update Generalized weakness improved Interval Update Hemoglobin stable Objective BP 123/77 (BP Location: Left arm, Patient Position: Semi-Marcum's) Pulse 79 Temp 36.6 ??C (97.9 ??F) (Oral) Resp 18 Ht 1.575 m Wt 102 kg SpO2 94% BMI 41.01 kg/m?? Intake/Output Summary (Last 24 hours) at 07/27/18 1412 Last data filed at 07/27/18 1352 Gross per 24 hour Intake 1030 ml Output 1250 ml Net -220 ml Physical Exam Constitutional: She is oriented to person, place, and time. She appears well- developed and well-nourished. HENT: Head: Normocephalic and atraumatic. Eyes: Pupils are equal, round, and reactive to light. EOM are normal. Neck: Normal range of motion. Neck supple. Cardiovascular: Normal rate, regular rhythm and normal heart sounds. Pulmonary/Chest: Effort normal and breath sounds normal. Abdominal: Lower abdominal wall ecchymosis with bilateral hematoma on abdominal wall. Mildly Tender and firm Neurological: She is alert and oriented to person, place, and time. Skin: Ecchymosis on forearm and lower abdominal wall Psychiatric: She has a normal mood and affect. Labs & ECG Hematology Results from last 7 days Lab Units 07/27/18 0611 07/26/18 1324 07/25/18 0520 WBC AUTO x10E3/uL 5.0 5.8 6.5 HEMOGLOBIN g/dL 8.7* 8.7* 8.6* HEMATOCRIT % 28.8* 27.9* 27.7* MCV fL 95 95 91 PLATELETS AUTO x10E3/uL 307 312 316 Coagulation Studies Results from last 7 days Lab Units 07/24/18 1041 INR INR 1.7 Chemistries Results from last 7 days Lab Units 07/27/18 0611 07/26/18 1324 07/25/18 0520 SODIUM mmol/L 135 134 133* POTASSIUM mmol/L 5.0 5.0 4.6 CHLORIDE mmol/L 96* 94* 93* CO2 mmol/L 25 27 23 BUN mg/dL 79.0* 78.0* 77.0* CREATININE mg/dL 2.16* 2.05* 1.91* CALCIUM, SERUM mg/dL 9.4 9.3 9.4 MAGNESIUM mg/dL -- -- 2.5 AST U/L 14 19 16 ALT U/L 13 13 13 BILIRUBIN TOTAL mg/dL 0.9 1.1 1.0 ALBUMIN g/dL 3.8 3.7 3.9 TOTAL PROTEIN g/dL 6.5 6.3 6.6 Estimated Creatinine Clearance: 23.3 mL/min (A) (by C-G formula based on SCr of 2.16 mg/dL (H)). Urinalysis Results from last 7 days Lab Units 07/24/18 1327 UROBILINOGEN, URINALYSIS E.U./dL 0.2 (Normal) RBC, URINALYSIS /HPF 0-2 WBC, URINALYSIS /HPF 0-5 Cardiac Enzymes Results from last 7 days Lab Units 07/24/18 1041 TROPONINT ng/mL 0.142* Lipid Profile Results from last 7 days Lab Units 07/27/18 0611 CHOLESTEROL mg/dL 204* HDL mg/dL 75 LDL CALCULATED mg/dL 106* VLDL CHOLESTEROL mg/dL 23 TRIGLYCERIDES mg/dL 113 Arterial Blood Gases No lab exists for component: ABGFIO2, N3CATGIP ACCUCHECK No results found for: POCGLU MISC LABS No lab exists for component: TSHHIGHSENSI, DILTOT MICROBIOLOGY No lab exists for component: MRSAPCR, CDIFFPCR Diagnostic Imaging PROCEDURE: CT ABDOMEN PELVIS WITHOUT CONTRAST INDICATIONS: abdominal wall hematoma causing severe anemia TECHNIQUE: Noncontrast 5 mm thick sections acquired from the diaphragms to the symphysis. 5 mm coronal and sagittal reformats were then performed. For radiation dose reduction, the following was used: automated exposure control, adjustment of mA and/or kV according to patient size. COMPARISON: , CT, CT CHEST ABD PEL WO CON, 06/23/2018, 12:04. FINDINGS: Image quality: Excellent. ABDOMEN: Lung bases: Lung bases are abnormal with a patchy pattern of alveolar infiltration again seen within the lower lungs bilaterally, likely mildly improved from the comparison study from 06/23/18. Only a very small portion of the lungs are included on this study. Heart size is normal. Solid organs: Liver is normal in size. Gallbladder contains multiple moderately large gallstones peripherally calcified layering dependently within the gallbladder lumen. Pancreas is normal in contours. Spleen is normal in size. No adrenal nodules. Kidneys are normal in size, without hydronephrosis but there is what appears to be mild nonobstructive nephrolithiasis involving the nondistended calyces of the kidneys bilaterally. The right kidney is normal in size, left kidney is asymmetrically smaller.. Peritoneum and bowel: Unenhanced bowel loops demonstrate normal wall thickness and caliber. No free fluid or air. Nodes and vessels: No retroperitoneal or mesenteric adenopathy by size criteria. Aorta and inferior vena cava are normal in caliber. Miscellaneous: No ventral hernias. PELVIS: Genitourinary: Bladder wall thickness is normal. Anteverted uterus, scattered uterine fibroids with internal dystrophic calcifications partially visualized. Miscellaneous: No inguinal hernias or adenopathy. Patchy areas of subcutaneous fat edema scatteredover the lower abdominal and pelvic body wall anteriorly. No significant body wall hematoma is found. Bones: No suspicious bony lesions. No vertebral body compression fractures. IMPRESSION: Several patchy areas of subcutaneous fat edema are present along the lower abdominal andpelvic anterior body wall consistent with sites of injection but a discrete large hematoma as possible source of reported anemia is not found. Mild degree of patchy alveolar air space infiltration is visualized on the far inferior margin of the lung parenchyma included on this abdomen/pelvis study. This appears to have improved from the comparison CT that included the entire chest 06/23/18. Several moderately large peripherally calcified gallstones are seen within the gallbladder lumen without evidence of acute cholecystitis or biliary obstruction. Small scattered nonobstructive renal collecting system calculi are present bilaterally and several of the calcifications present near the renal sinus bilaterally could represent vascular calcifications instead. Partially visualized anteverted uterus, with uterine fibroids containing dystrophic calcifications. Dictated by: Johnie Carmen M.D. on 07/24/2018 at 14:47 Echo 07/24/18 Interpretation Summary A limited 2D echocardiogram was performed to assess LV function in a patient with suspected demand ischemia. The left ventricle is moderately dilated. Left ventricular systolic function is severely reduced. The ejection fraction is estimated to be 20-25%. Contrast examination demonstrates severe hypokinesis or akinesis involving the distal half of the left ventricle with mild hypokinesis but fairly well- preserved contractility at the base of the left ventricle. This pattern is quite consistent with stress cardiomyopathy. The prior examination from June 22 did not visualize the apex well but the left ventricular systolic function at that point appeared likely normal and the current pattern suggesting stress cardiomyopathy appears to be new. There is a pacemaker lead in the right ventricle. The right ventricle grossly appears normal in size with probable normal systolic function. There is moderate tricuspid regurgitation. The right ventricular systolic pressure is estimated to be at least 62 mmHg based on an estimated right atrial pressure of 15 mm Hg. There is moderate to severe mitral regurgitation. There is mild aortic stenosis. There is mild aortic regurgitation. No other echocardiographic abnormalities seen. This patient has evidence of severe ventricular dysfunction likely related to stress cardiomyopathy. In addition there appears to be significant worsening in the degree of mitral regurgitation with mild to moderate aortic insufficiency and mild aortic stenosis. Moderately severe pulmonary hypertension also notable. Cardiology consultation suggested. Electronically signed by: Ray Martin MD 07/27/2018 at 2:12 PM Bhavana Schrader 07/27/2018 10:45 AM PSTFormatting of this note may be different from the original. Inpatient Physical Therapy Treatment Note Patient Name: Janet Mendez MR#: [id number] Today's Date: 07/27/2018 PT Last Visit PT Received On: 07/27/18 SQUAD BOSS Visit Count: 1 Precautions General Precautions: falls risk Subjective: Cognition Overall Cognitive Status: Within Functional Limits Orientation Level: Oriented X4 Safety Judgment: Good awareness of safety precautions Objective/Interventions: Mobility Supine to Sit: (found in chair) Sit to Supine: Moderate assistance (HOB flat, Mod A LLE) Sit to Stand: Contact guard assistance (x3) Sit-Stand Devices Used: Front wheeled walker Stand to Sit: Contact guard assistance Stand-Sit Devices Used: Front wheeled walker Stand Pivot Transfers: Contact guard assistance (to [facility]) Stand Pivot: Devices Used: Front wheeled walker Ambulation: Contact guard assistance Ambulation: Devices Used: Front wheeled walker Ambulation Distance (Feet): 75 Feet (1x 45ft, seated rest break, 1x30ft) Goals and Progress: Plan Assessment: Pt found seated in chair and agreeable to Skilled PT. Pt transferred to [facility] CGA w/ no reports of dizziness. Pt amb w/in room SBA x 75 ft w/ 1 seated rest break after reporting fatigue and no dizziness. Pt c/o of L hip pain seated in chair due to pressure against arm rests. Pt required consistent cues to stand up tall and breathe during amb w/ moderate carry over. Pt returned to bed mod A for LE w/ c/o abdomen pain at injection sites, unrated, NSG notified. Rec PT 2-3x/ wk and home w/ assist when medically stable. Progress: Progressing toward goals IP Therapy Problems (Active) Problem: Physical Therapy - Adult Goal Priority Disciplines By Discharge: Performs mobility at highest level of function for planned discharge setting. See evaluation for individualized goals. PT Description: 1.pt will be able to perform ambulation for 50' w/FWW or least restrictive device modified independently 2. Pt will be able to perform bed mobility modified independently Plan: Recommendation IP PT Status: (!) 1 PT Frequency (in-house): Daily Equipment (DME) Recommended: Walker Walker Type: Front wheeled walker Post-discharge recommendation: Home with assist, Home PT Discharge Transportation: Private vehicle, Cabulance PT Frequency upon discharge: 2-3x/wk Electronically signed by Bhavana Schrader Associated attestation - Roxanne Godoy PTA - 07/27/2018 11:08 AM PSTI was the supervising geophysical computer in the delivery of the service. Quang Sheikh - 07/27/2018 9:23 AM PSTSocial Work Discharge Planning Home Health Referral : Called and left a message on intake line at [facility] [phone], let them know that this is a new start patient. I let them know I was going to fax them all the patient's information and then follow up at time of discharge. Faxed H&P, PT NOTE, order from MD and additional clinicals pertaining needs to [phone]. Updated LOT ATTENDANT that this task was completed Elie Munguia MD - 07/27/2018 9:17 AM PSTFormatting of this note may be different from the original. CARDIOLOGY follow Up Note Patient Name: Janet Mendez Date of : 1940 Date of Admission: 07/24/2018 Date of Service: 07/27/2018 INTERVAL HISTORY: Overall feels better. Post transfusion of 2 units of PRBC. On asa and statin and furosemide 40 mg IVbid. Main complaint is lack on endurance and easy fatigability. Renal function is stable. Patient Active Problem List Diagnosis ??? Anemia requiring transfusions ??? Acute anemia Past Medical History: Diagnosis Date ??? Atypical pneumonia ??? CHF (congestive heart failure) (CMS/HCC) ??? CKD (chronic kidney disease) ??? Cognitive communication deficit ??? Complete heart block (CMS/HCC) ??? Coronary artery disease ??? Difficulty walking ??? DVT (deep venous thrombosis) (CMS/HCC) of lower extremity ??? Dysphagia, oropharyngeal phase ??? History of transfusion ??? Hypertension ??? Muscle weakness (generalized) ??? Shortness of breath ??? Venous thrombosis and embolism Current Medications: Scheduled Meds: aspirin 81 mg oral Daily atorvastatin 40 mg oral Nightly calcium carbonate 1,000 mg oral Daily carvedilol 12.5 mg oral BID with meals cholecalciferol (vitamin D3) 2,000 Units oral Daily ezetimibe 10 mg oral Daily furosemide 40 mg intravenous BID heparin (porcine) 5,000 Units subcutaneous q12h LILLY hydrALAZINE 12.5 mg oral TID lisinopril 2.5 mg oral Daily pantoprazole 20 mg oral q AM AC PARoxetine 10 mg oral q AM Review of Systems: All other systems are reviewed and negative to the best of the patient's ability. Physical Exam Constitutional Very pleasant 78-year-old, patient,appears chronically ill Mouth/Throat Unremarkable Eyes Unremarkable Neck +JVD about 10cm Cardiovascular Distant heart sounds , did not appreciate any murmurs or gallops Pulmonary/Chest Left-sided crackles Abdominal Diffuse ecchymoses in various stages of ealing Musculoskeletal No obvious musculoskeletal abnormalities Extremities 1+ BL LE edema Neurological No apparent focal neurologic findings Skin Dry and scaly Vital Signs (as of 0600): Temp: [36.3 ??C (97.3 ??F)-36.9 ??C (98.4 ??F)] 36.5 ??C (97.7 ??F) Heart Rate: [67-76] 70 Resp: [16-20] 18 BP: (100-124)/(57-74) 124/66 Oxygen: SpO2: 95 % on liters via I/O this shift: In: 240 [P.O.:240] Out: - I/O???s (24 hours): Intake/Output Summary (Last 24 hours) at 07/27/18 0917 Last data filed at 07/27/18 0849 Gross per 24 hour Intake 890 ml Output 900 ml Net -10 ml Admission Weight: Weight: 97.5 kg Current weight: Weight: 102 kg STUDIES: Labs: Results from last 7 days Lab Units 07/27/18 0611 07/26/18 1324 07/25/18 0520 07/24/18 1041 WBC AUTO x10E3/uL 5.0 5.8 6.5 6.6 HEMOGLOBIN g/dL 8.7* 8.7* 8.6* 6.9* HEMATOCRIT % 28.8* 27.9* 27.7* 22.5* PLATELETS AUTO x10E3/uL 307 312 316 325 SODIUM mmol/L 135 134 133* 131* POTASSIUM mmol/L 5.0 5.0 4.6 4.2 CHLORIDE mmol/L 96* 94* 93* 90* CO2 mmol/L 25 27 23 24 BUN mg/dL 79.0* 78.0* 77.0* 78.0* CREATININE mg/dL 2.16* 2.05* 1.91* 2.15* GLUCOSE mg/dL 95 119* 101* 121* MAGNESIUM mg/dL -- -- 2.5 -- AST U/L 14 19 16 18 ALT U/L 13 13 13 15 BILIRUBIN TOTAL mg/dL 0.9 1.1 1.0 0.8 INR INR -- -- -- 1.7 LDL CALCULATED mg/dL 106* -- -- -- HDL mg/dL 75 -- -- -- Telemetry: Intermittent paced rhythm IMPRESSION AND RECOMMENDATIONS: Ms. Mendez is a 78 y.o. female with ICM, CKD (baseline cr.1.7-1.8) and giant cell arteritis who is [facility] Hospital Day: 4 after being admitted for blood loss anemia secondary to abdominal wall hematoma. She also has ischemic cardiomyopathy and troponin elevation for which cardiology is consulted. EF was found to be 20-25% with presumably superimposed stress-induced cardiomyopathy (although has baseline WMA in LAD territory). As outpatient she has been deemed not to be a candidate for revascularization and medical management has tanner pursued. She was volume up and diuresed with IV furosemide, 40 mg bid. I believe we can cut down to 40 mg daily tomorrow and home dose of 40 mg torsemide daily afterwards.My concern is whether she was supposed to be on torsemide 40 mg bid or not, per last note from Dr. Godinez. She is not overtly volume overloaded any more and the JVD is less reliable given TR. Given she has a PPM, I suggest increasing her beta mya dose to decrease myocardial oxygen demand. She is stable from cardiovascular standpoint and can be discharged with close follow up with Dr. Godinez, her primary safety risk lead, once deemed ready from the primary team standpoint. Plan: -Decrease furosemide to 40 mg IV daily tomorrow. -Can increase carvedilol to 18.75 mg bid. -Please clarify home dose of diuretic (torsemide 40 mg daily or bid) and discharge on home regimen of diuretic. Cardiology will sign off. Please do not hesitate to call with any questions or concerns. Code Status:DNR 07/27/2018 9:17 AM Electronically signed by: Elie Munguia MD A total of >60 minutes was spent with the patient today with greater than 50 % in counseling and coordination of care. This note was generated utilizing voice recognition software.?? While attempts have been made to correct mistakes, common errors may occur, including substitution of words that sound phonetically similar to the intended word as well as random substitution errors.?? Please take this into consideration and use clinical context when necessary. Marques Camacho, PT - 07/26/2018 3:50 PM PSTFormatting of this note may be different from the original. Inpatient Physical Therapy Initial Evaluation Patient Name: Janet Mendez MR#: [id number] Today's Date: 07/26/2018 Patient Active Problem List Diagnosis ??? Anemia requiring transfusions ??? Acute anemia Past Medical History: Diagnosis Date ??? Atypical pneumonia ??? CHF (congestive heart failure) (CMS/HCC) ??? CKD (chronic kidney disease) ??? Cognitive communication deficit ??? Complete heart block (CMS/HCC) ??? Coronary artery disease ??? Difficulty walking ??? DVT (deep venous thrombosis) (CMS/HCC) of lower extremity ??? Dysphagia, oropharyngeal phase ??? History of transfusion ??? Hypertension ??? Muscle weakness (generalized) ??? Shortness of breath ??? Venous thrombosis and embolism Past Surgical History: Procedure Laterality Date ??? INSERT / REPLACE / REMOVE PACEMAKER Left [employer] ??? TOTAL HIP ARTHROPLASTY Left [facility]: Precautions General Precautions: fall, anemia Subjective: Pt received sitting upright in bed, pt agreeable to participate in therapy. Home Environment: Home Living Type of Home: House (Duplex) Home Layout: One level Home Access: Ramped entrance Bathroom Shower/Tub: Tub/shower unit Bathroom Toilet: Standard Bathroom Equipment: Shower chair, Raised toilet seat Mobility Equipment: Four wheeled walker, Manual wheelchair (w/c is only used for off-island excurions) Prior Function Level of Dodge: Needs assistance with ADLs Lives With: Family (Daughter (Sadia)) Receives Help From: Family (daughter) Homemaking Assistance: Needs assistance Pain: Pain Assessment Pain Assessment: 0-10 Pain Score: 5 - Moderate pain Pain Type: Surgical pain Pain Location: Hip Pain Orientation: Right Vision: Vision - Complex Assessment Current Vision: Wears glasses all the time Ocular Range of Motion: Restricted on the right, Restricted on the left, Restricted looking up, Restricted looking down Head Position: Neutral and centered Tracking: Able to track stimulus in all quads without difficulty Cognitive/Neuro: Cognition Overall Cognitive Status: Within Functional Limits Orientation Level: Oriented X4 Safety Judgment: Good awareness of safety precautions Sensation Light Touch: No apparent deficits Proprioception Proprioception: No apparent deficits Mobility: Mobility Rolling: Independent Supine to Sit: Modified independent with railing (No railing, but HOB raised 60 degrees to mimic recliner) Sit to Supine: Minimal assistance Sit to Stand: Stand by assistance Sit-Stand Devices Used: Front wheeled walker Stand to Sit: Stand by assistance Stand-Sit Devices Used: Front wheeled walker Stand Pivot Transfers: Stand by assistance Stand Pivot: Devices Used: Front wheeled walker Ambulation: Stand by assistance Ambulation: Devices Used: Front wheeled walker Ambulation Distance (Feet): 20 Feet Sitting Balance: Supports self independently Standing Balance: Modified independent with device Extremities: RUE Assessment RUE Assessment: Exceptions to WFL RUE Strength: Decreased shoulder abduction, flexion RUE ROM: Decreased shoulder AROM LUE Assessment LUE Assessment: Exceptions to WFL LUE Strength: Decreased shoulder abduction/flexion LUE ROM: Decreased shoulder abduction AROM RLE Assessment RLE Assessment: Within Functional Limits LLE Assessment LLE Assessment: Exceptions to WFL LLE Strength: Decreased hip flexor strength Bed Mobility: Supine-Sit with HOB raised 60 degrees to mimic pt sleeping in recliner chair at home, modified independently. Sit-Stand w/supervision and FWW Standing for 1 minute, followed by rest break. Bed transfers: Amb stand pivot /FWW and supervision Ambulation: Amb for 20' w/FWW and supervision, poor posture, increased forward trunk lean. Bed mobility: Sit-Supine: Ebony for BLE placement back on bed. Vitals: Supine beginning of session: 107/65, HR: 74, O2 Sat: 92% on RA, pt reported slight SOB Sitting edge of bed: 122/70, HR: 74, O2 Sat: 93% on RA, pt reported slightheadedness/dizziness whichresolved within 1 minute. Supine end of session: 93% on RA, pt asymptomatic Assessment: Assessment/Prognosis Assessment: pt presents today with decreased strength, standing and activity tolerance, decreased balance, poor posture. Pt possibly safe to return home if she is able to demonstrate safe ambulation for 50' w/FWW. She will likely not need to perform sit-supine transfers as she sleeps primarily in a recliner chair and that is the transfer that limits her the most currently. She will not need to perform stairs at home as she reports that she has a ramped entrance. Patient will likely benefit from continued physical therapy to address her aforementioned deficits. Per MD call, he wants PT to work w/pt daily until her anticipated d/c on Friday possibly home. D/C Recommendations: Home w/assistancce and home health PT or SNF If pt is able to complete ambulation w/FWW for 50' modified independently before her d/c on Friday she will likely be safe to return home w/assistance for ADLs. The pt's daughter works supervisor delivery department and will be gone for stretches of time during which the pt will need to be able to ambulate throughout thehouse for ADLs. If the pt is not able to demonstrate enough mobility she may require a short term SNF stay to address her aforementioned deficits. Prognosis: Good Recommendation and Plan: Treatment/Interventions: ADL retraining, Functional transfer training, LE strengthening/ROM, Endurance training, Patient/family training, Equipment eval/education, Bed mobility, Gait training Recommendation IP PT Status: (!) 1 In-house recommendation: OT consult PT Frequency (in-house): Daily (MD called to request daily in-house PT treatment ) Equipment (DME) Recommended: Walker Walker Type: Front wheeled walker Post-discharge recommendation: Home with assist and Home PT Discharge Transportation: Private vehicle, Cabulance PT Frequency upon discharge: 2-3x/wk Goals: IP Therapy Problems (Active) Problem: Physical Therapy - Adult Goal Priority Disciplines By Discharge: Performs mobility at highest level of function for planned discharge setting. See evaluation for individualized goals. PT Description: 1.pt will be able to perform ambulation for 50' w/FWW or least restrictive device modified independently 2. Pt will be able to perform bed mobility modified independently Electronically signed by Marques Camacho, PT Ray Martin MD - 07/26/2018 1:18 PM PSTFormatting of this note may be different from the original. Progress Note Inpatient Primary Care [facility] Patient Name: Janet Mendez Date of : 1940 Age: 78 y.o. Code Status: DNR Primary Care Physician: Miko Calvo Admitting Provider: Ray Martin MD Attending Provider: Ray Martin MD Admit Date: 07/24/2018 Date of Service: 07/26/2018 Hospital Day: 2 Active Problems Patient Active Problem List Diagnosis ??? Anemia requiring transfusions ??? Acute anemia Assessment and Plan Janet Mendez is a 78 y.o. female with past medical history of DVT on warfarin for 3 years, historyof giant cell arteritis, complete heart block status post pacemaker, CKD, chronic systolic CHF, hypertension was sent from [facility] due to generalized weakness and hemoglobin drop noted on labs. # Acute stress cardiomyopathy due to anemia on chronic systolic CHF,poa -EKG sinus rhythm with nonspecific IVCD, troponin elevated at 0.142 at presentation -Echo shows EF 20-25%, severe hypokinesis or akinesis of distal of left ventricle, Consistent with stress cardiomyopathy. Continue carvedilol. Consulted cardiology. hold home torsemide. Started Lasix 40 mg IV twice a day per cardiology. Prior EF 30-35% -Will try to increase lisinopril as blood pressure allows per cardiology. -Started aspirin and atorvastatin. # Symptomatic acute anemia requiring transfusion,poa -Presented with symptoms of anemia. Hemoglobin 6.9. Recent hemoglobin on 07/14 was 9.8. -Anemia due to abdominal hematoma at Lovenox injection sites due to recent bridging Lovenox. - CT of abdominal wall done shows no discrete hematoma but infiltrated abdominal wall /abdominal bloating edema. Stool occult blood is positive but GI bleed unlikely to be the culprit for anemia. Will consider GI consult if hemoglobin drops further -2 PRBCs transfused in ED. posttransfusion hemoglobin 8.6 -INR 1.7. Did not give reversal given prior history of DVT -Started aspirin # Abdominal wall hematoma,poa -CT scan no discrete hematoma but infiltrated abdominal wall /abdominal bloating edema -INR 1.7. Will not give reversal given prior history of DVT unless hematoma worsens # ALLYSSA on CKD ,poa -Baseline creatinine 1.6 . Initial creatinine 2.15. Due to blood loss anemia. -Creatinine improving with transfusion. # History of DVT,poa -Patient states she only had 1 DVT in 2014. Has been on warfarin. She is not sure if she had hypercoagulable workup. No history of atrial fibrillation mentioned. No clear indication to continue warfarin for life. Will discharge off of anticoagulation and PCP is to follow-up and decide. Will start aspirin 81 mg daily. # History of giant cell arteritis,poa -She was diagnosed with giant cell arthritis in 2014 clinically per patient. Her car spotter is Dr. Ballesteros in [facility]. Long-term prednisone caused bone damage and resulted in left hip replacement in November 2017. [employer] is tapering her prednisone and she was on her final taper phase at1 mg daily for 4 weeks and supposed to be completed at this time. Patient was taking prednisone 1 [facility]daily at [facility] facility. Will discontinue prednisone. # History of heart block s/p PPM # Chronic systolic CHF -Continue home Coreg, resume lisinopril, torsemide due to ALLYSSA # Hypertension -Continue Coreg and hold diuretics as above. VTE Prophylaxis Heparin sc ok ? Code Status: DNR/DNI ?? -Acetaminophen as needed for mild pain/fever/headache -Antiemetic as needed -Bowel regimen as needed -Opioid analgesia as needed for moderate to severe pain uncontrolled by other means ?? Patient Status Patient's expected length of stay: Greater than two midnights Patient is under inpatient status due to severity of presenting symptoms, complexity of treatment plan, and risk of adverse event. ?? Functional status prior to admission: Independent prior to hospitalization in end of June Functional expectation at discharge (including NSOC): Back to [facility] Disposition Patient came from [facility]. Will request PT dimitri, will consider discharging her to home with home health. Patient agreeable to plan. Current Hospital Medications Allergies No Known Allergies Medications Scheduled aspirin 81 mg oral Daily atorvastatin 40 mg oral Nightly calcium carbonate 1,000 mg oral Daily carvedilol 12.5 mg oral BID with meals cholecalciferol (vitamin D3) 2,000 Units oral Daily ezetimibe 10 mg oral Daily furosemide 40 mg intravenous BID heparin (porcine) 5,000 Units subcutaneous q12h LILLY hydrALAZINE 12.5 mg oral TID lisinopril 2.5 mg oral Daily pantoprazole 20 mg oral q AM AC PARoxetine 10 mg oral q AM As needed ??? acetaminophen ??? docusate sodium ??? ondansetron ??? senna ??? Prepare/Crossmatch RBC: 2 Units AND Transfuse RBC: 2 Units AND [ ] Nursing communication: Ensure provider has obtained Informed Consent for Blood Transfusion AND Vital Signs AND sodium chloride 0.9 % AND [] Nursing Communication: Transfusion Reaction Management ??? Insert peripheral IV AND Maintain IV access AND Saline lock IV AND sodium chloride Infusions Subjective Patient's Update Generalized weakness improved Interval Update Hemoglobin pending Objective BP 105/57 (BP Location: Left arm, Patient Position: Semi-Marcum's) Pulse 73 Temp 35.8 ??C (96.5 ??F) (Axillary) Resp 18 Ht 1.575 m Wt 101 kg SpO2 91% BMI 40.56 kg/m?? Intake/Output Summary (Last 24 hours) at 07/26/18 1318 Last data filed at 07/26/18 1220 Gross per 24 hour Intake 900 ml Output 1000 ml Net -100 ml Physical Exam Constitutional: She is oriented to person, place, and time. She appears well- developed and well-nourished. HENT: Head: Normocephalic and atraumatic. Eyes: Pupils are equal, round, and reactive to light. EOM are normal. Neck: Normal range of motion. Neck supple. Cardiovascular: Normal rate, regular rhythm and normal heart sounds. Pulmonary/Chest: Effort normal and breath sounds normal. Abdominal: Lower abdominal wall ecchymosis with bilateral hematoma on abdominal wall. Mildly Tender and firm Neurological: She is alert and oriented to person, place, and time. Skin: Ecchymosis on forearm and lower abdominal wall Psychiatric: She has a normal mood and affect. Labs & ECG Hematology Results from last 7 days Lab Units 07/25/18 0520 07/24/18 1041 WBC AUTO x10E3/uL 6.5 6.6 HEMOGLOBIN g/dL 8.6* 6.9* HEMATOCRIT % 27.7* 22.5* MCV fL 91 93 PLATELETS AUTO x10E3/uL 316 325 Coagulation Studies Results from last 7 days Lab Units 07/24/18 1041 INR INR 1.7 Chemistries Results from last 7 days Lab Units 07/25/18 0520 07/24/18 1041 SODIUM mmol/L 133* 131* POTASSIUM mmol/L 4.6 4.2 CHLORIDE mmol/L 93* 90* CO2 mmol/L 23 24 BUN mg/dL 77.0* 78.0* CREATININE mg/dL 1.91* 2.15* CALCIUM, SERUM mg/dL 9.4 9.6 MAGNESIUM mg/dL 2.5 -- AST U/L 16 18 ALT U/L 13 15 BILIRUBIN TOTAL mg/dL 1.0 0.8 ALBUMIN g/dL 3.9 3.8 TOTAL PROTEIN g/dL 6.6 7.3 Estimated Creatinine Clearance: 26.1 mL/min (A) (by C-G formula based on SCr of 1.91 mg/dL (H)). Urinalysis Results from last 7 days Lab Units 07/24/18 1327 UROBILINOGEN, URINALYSIS E.U./dL 0.2 (Normal) RBC, URINALYSIS /HPF 0-2 WBC, URINALYSIS /HPF 0-5 Cardiac Enzymes Results from last 7 days Lab Units 07/24/18 1041 TROPONINT ng/mL 0.142* Lipid Profile Arterial Blood Gases No lab exists for component: ABGFIO2, [id number] ACCUCHECK No results found for: POCGLU MISC LABS No lab exists for component: TSHHIGHSENSI, DILTOT MICROBIOLOGY No lab exists for component: MRSAPCR, CDIFFPCR Diagnostic Imaging PROCEDURE: CT ABDOMEN PELVIS WITHOUT CONTRAST INDICATIONS: abdominal wall hematoma causing severe anemia TECHNIQUE: Noncontrast 5 mm thick sections acquired from the diaphragms to the symphysis. 5 mm coronal and sagittal reformats were then performed. For radiation dose reduction, the following was used: automated exposure control, adjustment of mA and/or kV according to patient size. COMPARISON: , CT, CT CHEST ABD PEL WO CON, 06/23/2018, 12:04. FINDINGS: Image quality: Excellent. ABDOMEN: Lung bases: Lung bases are abnormal with a patchy pattern of alveolar infiltration again seen within the lower lungs bilaterally, likely mildly improved from the comparison study from 06/23/18. Only a very small portion of the lungs are included on this study. Heart size is normal. Solid organs: Liver is normal in size. Gallbladder contains multiple moderately large gallstones peripherally calcified layering dependently within the gallbladder lumen. Pancreas is normal in contours. Spleen is normal in size. No adrenal nodules. Kidneys are normal in size, without hydronephrosis but there is what appears to be mild nonobstructive nephrolithiasis involving the nondistended calyces of the kidneys bilaterally. The right kidney is normal in size, left kidney is asymmetrically smaller.. Peritoneum and bowel: Unenhanced bowel loops demonstrate normal wall thickness and caliber. No free fluid or air. Nodes and vessels: No retroperitoneal or mesenteric adenopathy by size criteria. Aorta and inferior vena cava are normal in caliber. Miscellaneous: No ventral hernias. PELVIS: Genitourinary: Bladder wall thickness is normal. Anteverted uterus, scattered uterine fibroids with internal dystrophic calcifications partially visualized. Miscellaneous: No inguinal hernias or adenopathy. Patchy areas of subcutaneous fat edema scatteredover the lower abdominal and pelvic body wall anteriorly. No significant body wall hematoma is found. Bones: No suspicious bony lesions. No vertebral body compression fractures. IMPRESSION: Several patchy areas of subcutaneous fat edema are present along the lower abdominal andpelvic anterior body wall consistent with sites of injection but a discrete large hematoma as possible source of reported anemia is not found. Mild degree of patchy alveolar air space infiltration is visualized on the far inferior margin of the lung parenchyma included on this abdomen/pelvis study. This appears to have improved from the comparison CT that included the entire chest 06/23/18. Several moderately large peripherally calcified gallstones are seen within the gallbladder lumen without evidence of acute cholecystitis or biliary obstruction. Small scattered nonobstructive renal collecting system calculi are present bilaterally and several of the calcifications present near the renal sinus bilaterally could represent vascular calcifications instead. Partially visualized anteverted uterus, with uterine fibroids containing dystrophic calcifications. Dictated by: Johnie Carmen M.D. on 07/24/2018 at 14:47 Echo 07/24/18 Interpretation Summary A limited 2D echocardiogram was performed to assess LV function in a patient with suspected demand ischemia. The left ventricle is moderately dilated. Left ventricular systolic function is severely reduced. The ejection fraction is estimated to be 20-25%. Contrast examination demonstrates severe hypokinesis or akinesis involving the distal half of the left ventricle with mild hypokinesis but fairly well- preserved contractility at the base of the left ventricle. This pattern is quite consistent with stress cardiomyopathy. The prior examination from June 22 did not visualize the apex well but the left ventricular systolic function at that point appeared likely normal and the current pattern suggesting stress cardiomyopathy appears to be new. There is a pacemaker lead in the right ventricle. The right ventricle grossly appears normal in size with probable normal systolic function. There is moderate tricuspid regurgitation. The right ventricular systolic pressure is estimated to be at least 62 mmHg based on an estimated right atrial pressure of 15 mm Hg. There is moderate to severe mitral regurgitation. There is mild aortic stenosis. There is mild aortic regurgitation. No other echocardiographic abnormalities seen. This patient has evidence of severe ventricular dysfunction likely related to stress cardiomyopathy. In addition there appears to be significant worsening in the degree of mitral regurgitation with mild to moderate aortic insufficiency and mild aortic stenosis. Moderately severe pulmonary hypertension also notable. Cardiology consultation suggested. Electronically signed by: Ray Martin MD 07/26/2018 at 1:18 PM Miko Wilson PT, DPT - 07/26/2018 11:43 AM PSTHold PT evaluation at this time due to elevated troponin levels. Recommend checking for appropriateness of PT evaluation tomorrow, Friday07/27/2018. Miko Wilson PT, Makayla Carrillo LSWAIC - 07/25/2018 2:57 PM PST Social Work: Note Data: BERNABE spoke with Stephanie at [facility], . She confirms the patient is accepted back once medically stable. Assessment: Deferred Plan: Anticipate return to [facility] when medically stable. LOT ATTENDANT to continue to follow to assess for unidentified/unmet needs. BENTON Mahan, Ray Pino MD - 07/25/2018 2:28 PM PSTFormatting of this note may be different from the original. Progress Note Inpatient Primary Care [facility] Patient Name: Janet Mendez Date of : 1940 Age: 78 y.o. Code Status: DNR Primary Care Physician: Miko Calvo Admitting Provider: Ray Martin MD Attending Provider: Ray Martin MD Admit Date: 07/24/2018 Date of Service: 07/25/2018 Hospital Day: 1 Active Problems Patient Active Problem List Diagnosis ??? Anemia requiring transfusions ??? Acute anemia Assessment and Plan Janet Mendez is a 78 y.o. female with past medical history of DVT on warfarin for 3 years, historyof giant cell arteritis, complete heart block status post pacemaker, CKD, chronic systolic CHF, hypertension was sent from [facility] due to generalized weakness and hemoglobin drop noted on labs. # Symptomatic acute anemia requiring transfusion,poa -Presented with symptoms of anemia. Hemoglobin 6.9. Recent hemoglobin on 07/14 was 9.8. -Anemia due to abdominal hematoma at Lovenox injection sites due to recent bridging Lovenox. - CT of abdominal wall done shows no discrete hematoma but infiltrated abdominal wall /abdominal bloating edema. Stool occult blood is positive but GI bleed unlikely to be the culprit for anemia. Will consider GI consult if hemoglobin drops further -2 PRBCs transfused in ED. posttransfusion hemoglobin 8.6 -INR 1.7. Will not give reversal given prior history of DVT # Abdominal wall hematoma,poa -CT scan no discrete hematoma but infiltrated abdominal wall /abdominal bloating edema -INR 1.7. Will not give reversal given prior history of DVT unless hematoma worsens # Acute stress cardiomyopathy due to anemia on chronic systolic CHF,poa -EKG sinus rhythm with nonspecific IVCD, troponin elevated at 0.142 -Echo shows EF 20-25%, severe hypokinesis or ecchymosis of distal of left ventricle. Consistent withstress cardiomyopathy. Continue carvedilol. Consulted cardiology. Continue home torsemide. Prior EF 30-35% # ALLYSSA on CKD ,poa -Baseline creatinine 1.6 . Initial creatinine 2.15. Due to blood loss anemia. -Creatinine improving with transfusion. # History of DVT,poa -Patient states she only had 1 DVT in 2014. Has been on warfarin. She is not sure if she had hypercoagulable workup. No history of atrial fibrillation mentioned. No clear indication to continue warfarin for life. Will discharge off of anticoagulation and PCP is to follow-up and decide. # History of giant cell arteritis,poa -She was diagnosed with giant cell arthritis in 2014 clinically per patient. Her car spotter is Dr. Ballesteros in [facility]. Long-term prednisone caused bone damage and resulted in left hip replacement in November 2017. [employer] is tapering her prednisone and she was on her final taper phase at1 mg daily for 4 weeks and supposed to be completed at this time. Patient currently taking prednisone 1 mg daily at [facility]. Will discontinue prednisone. # History of heart block s/p PPM # Chronic systolic CHF -Continue home Coreg, hold lisinopril, torsemide due to ALLYSSA # Hypertension -Continue Coreg and hold diuretics as above. VTE Prophylaxis Heparin sc ok ? Code Status: DNR/DNI ?? -Acetaminophen as needed for mild pain/fever/headache -Antiemetic as needed -Bowel regimen as needed -Opioid analgesia as needed for moderate to severe pain uncontrolled by other means ?? Patient Status Patient's expected length of stay: Greater than two midnights Patient is under inpatient status due to severity of presenting symptoms, complexity of treatment plan, and risk of adverse event. ?? Functional status prior to admission: Independent prior to hospitalization in end june Functional expectation at discharge (including NSOC): Back to [facility] Disposition Back to Medical Center in 1-2 days. Current Hospital Medications Allergies No Known Allergies Medications Scheduled calcium carbonate 1,000 mg oral Daily carvedilol 12.5 mg oral BID with meals cholecalciferol (vitamin D3) 2,000 Units oral Daily ezetimibe 10 mg oral Daily heparin (porcine) 5,000 Units subcutaneous q12h LILLY hydrALAZINE 12.5 mg oral TID lisinopril 2.5 mg oral Daily PARoxetine 10 mg oral q AM [START ON 07/26/2018] torsemide 40 mg oral Daily As needed ??? acetaminophen ??? docusate sodium ??? senna ??? Prepare/Crossmatch RBC: 2 Units AND Transfuse RBC: 2 Units AND [ ] Nursing communication: Ensure provider has obtained Informed Consent for Blood Transfusion AND Vital Signs AND sodium chloride 0.9 % AND [] Nursing Communication: Transfusion Reaction Management ??? Insert peripheral IV AND Maintain IV access AND Saline lock IV AND sodium chloride Infusions Subjective Patient's Update Generalized weakness improved Interval Update Hemoglobin improved Objective BP 126/77 (BP Location: Left arm, Patient Position: Sitting) Pulse 78 Temp 36.6 ??C (97.9 ??F)(Oral) Resp 18 Ht 1.575 m Wt 102 kg SpO2 96 % BMI 41.05 kg/m?? Intake/Output Summary (Last 24 hours) at 07/25/18 1428 Last data filed at 07/25/18 1407 Gross per 24 hour Intake 1222.67 ml Output 1475 ml Net -252.33 ml Physical Exam Constitutional: She is oriented to person, place, and time. She appears well- developed and well-nourished. HENT: Head: Normocephalic and atraumatic. Eyes: Pupils are equal, round, and reactive to light. EOM are normal. Neck: Normal range of motion. Neck supple. Cardiovascular: Normal rate, regular rhythm and normal heart sounds. Pulmonary/Chest: Effort normal and breath sounds normal. Abdominal: Lower abdominal wall ecchymosis with bilateral hematoma on abdominal wall. Mildly Tender and firm Neurological: She is alert and oriented to person, place, and time. Skin: Ecchymosis on forearm and lower abdominal wall Psychiatric: She has a normal mood and affect. Labs & ECG Hematology Results from last 7 days Lab Units 07/25/18 0520 07/24/18 1041 WBC AUTO x10E3/uL 6.5 6.6 HEMOGLOBIN g/dL 8.6* 6.9* HEMATOCRIT % 27.7* 22.5* MCV fL 91 93 PLATELETS AUTO x10E3/uL 316 325 Coagulation Studies Results from last 7 days Lab Units 07/24/18 1041 INR INR 1.7 Chemistries Results from last 7 days Lab Units 07/25/18 0520 07/24/18 1041 SODIUM mmol/L 133* 131* POTASSIUM mmol/L 4.6 4.2 CHLORIDE mmol/L 93* 90* CO2 mmol/L 23 24 BUN mg/dL 77.0* 78.0* CREATININE mg/dL 1.91* 2.15* CALCIUM, SERUM mg/dL 9.4 9.6 MAGNESIUM mg/dL 2.5 -- AST U/L 16 18 ALT U/L 13 15 BILIRUBIN TOTAL mg/dL 1.0 0.8 ALBUMIN g/dL 3.9 3.8 TOTAL PROTEIN g/dL 6.6 7.3 Estimated Creatinine Clearance: 26.3 mL/min (A) (by C-G formula based on SCr of 1.91 mg/dL (H)). Urinalysis Results from last 7 days Lab Units 07/24/18 1327 UROBILINOGEN, URINALYSIS E.U./dL 0.2 (Normal) RBC, URINALYSIS /HPF 0-2 WBC, URINALYSIS /HPF 0-5 Cardiac Enzymes Results from last 7 days Lab Units 07/24/18 1041 TROPONINT ng/mL 0.142* Lipid Profile Arterial Blood Gases No lab exists for component: ABGFIO2, H3DPROVB ACCUCHECK No results found for: POCGLU MISC LABS No lab exists for component: TSHHIGHSENSI, DILTOT MICROBIOLOGY No lab exists for component: MRSAPCR, CDIFFPCR Diagnostic Imaging PROCEDURE: CT ABDOMEN PELVIS WITHOUT CONTRAST INDICATIONS: abdominal wall hematoma causing severe anemia TECHNIQUE: Noncontrast 5 mm thick sections acquired from the diaphragms to the symphysis. 5 mm coronal and sagittal reformats were then performed. For radiation dose reduction, the following was used: automated exposure control, adjustment of mA and/or kV according to patient size. COMPARISON: , CT, CT CHEST ABD PEL WO CON, 06/23/2018, 12:04. FINDINGS: Image quality: Excellent. ABDOMEN: Lung bases: Lung bases are abnormal with a patchy pattern of alveolar infiltration again seen within the lower lungs bilaterally, likely mildly improved from the comparison study from 06/23/18. Only a very small portion of the lungs are included on this study. Heart size is normal. Solid organs: Liver is normal in size. Gallbladder contains multiple moderately large gallstones peripherally calcified layering dependently within the gallbladder lumen. Pancreas is normal in contours. Spleen is normal in size. No adrenal nodules. Kidneys are normal in size, without hydronephrosis but there is what appears to be mild nonobstructive nephrolithiasis involving the nondistended calyces of the kidneys bilaterally. The right kidney is normal in size, left kidney is asymmetrically smaller.. Peritoneum and bowel: Unenhanced bowel loops demonstrate normal wall thickness and caliber. No free fluid or air. Nodes and vessels: No retroperitoneal or mesenteric adenopathy by size criteria. Aorta and inferior vena cava are normal in caliber. Miscellaneous: No ventral hernias. PELVIS: Genitourinary: Bladder wall thickness is normal. Anteverted uterus, scattered uterine fibroids with internal dystrophic calcifications partially visualized. Miscellaneous: No inguinal hernias or adenopathy. Patchy areas of subcutaneous fat edema scatteredover the lower abdominal and pelvic body wall anteriorly. No significant body wall hematoma is found. Bones: No suspicious bony lesions. No vertebral body compression fractures. IMPRESSION: Several patchy areas of subcutaneous fat edema are present along the lower abdominal andpelvic anterior body wall consistent with sites of injection but a discrete large hematoma as possible source of reported anemia is not found. Mild degree of patchy alveolar air space infiltration is visualized on the far inferior margin of the lung parenchyma included on this abdomen/pelvis study. This appears to have improved from the comparison CT that included the entire chest 06/23/18. Several moderately large peripherally calcified gallstones are seen within the gallbladder lumen without evidence of acute cholecystitis or biliary obstruction. Small scattered nonobstructive renal collecting system calculi are present bilaterally and several of the calcifications present near the renal sinus bilaterally could represent vascular calcifications instead. Partially visualized anteverted uterus, with uterine fibroids containing dystrophic calcifications. Dictated by: Johnie Carmen M.D. on 07/24/2018 at 14:47 Echo 07/24/18 Interpretation Summary A limited 2D echocardiogram was performed to assess LV function in a patient with suspected demand ischemia. The left ventricle is moderately dilated. Left ventricular systolic function is severely reduced. The ejection fraction is estimated to be 20-25%. Contrast examination demonstrates severe hypokinesis or akinesis involving the distal half of the left ventricle with mild hypokinesis but fairly well- preserved contractility at the base of the left ventricle. This pattern is quite consistent with stress cardiomyopathy. The prior examination from June 22 did not visualize the apex well but the left ventricular systolic function at that point appeared likely normal and the current pattern suggesting stress cardiomyopathy appears to be new. There is a pacemaker lead in the right ventricle. The right ventricle grossly appears normal in size with probable normal systolic function. There is moderate tricuspid regurgitation. The right ventricular systolic pressure is estimated to be at least 62 mmHg based on an estimated right atrial pressure of 15 mm Hg. There is moderate to severe mitral regurgitation. There is mild aortic stenosis. There is mild aortic regurgitation. No other echocardiographic abnormalities seen. This patient has evidence of severe ventricular dysfunction likely related to stress cardiomyopathy. In addition there appears to be significant worsening in the degree of mitral regurgitation with mild to moderate aortic insufficiency and mild aortic stenosis. Moderately severe pulmonary hypertension also notable. Cardiology consultation suggested. Electronically signed by: Ray Martin MD 07/25/2018 at 2:28 PM in this encounter Plan of Treatment Scheduled Tests Name Priority Associated Diagnoses Order Schedule Oxygen Therapy - STAT As needed until discontinued starting 07/24/2018 12 lead EKG for Chest pain, STAT As needed until increased ST elevation, or discontinued starting changes in rhythm 07/24/2018 Complete blood count with Routine Daily until discontinued diff starting 07/27/2018, 3 completed Comprehensive Metabolic Routine Daily until discontinued Panel starting 07/27/2018, 3 completed Health Maintenance Due Date Last Done Comments Depression Screening (PHQ-2) 1950 Fall Risk Screening 2003 Influenza Vaccine (#1) 2018 as of this encounter Procedures Procedure Name Priority Date/Time Associated Comments Diagnosis US VENOUS UPPER Routine 07/29/2018 10:34 Results for this EXTREMITY DOPPLER AM PST procedure are in RIGHT the results section. ECG 12-LEAD STAT 07/29/2018 8:56 Results for this AM PST procedure are in the results section. EXTRA TUBES Routine 07/29/2018 5:49 Results for this AM PST procedure are in the results section. COMPLETE BLOOD COUNT Routine 07/29/2018 5:49 Results for this WITH DIFF RESULT AM PST procedure are in the results section. YELLOW TOP- ACD Routine 07/29/2018 5:49 Results for this AM PST procedure are in the results section. COMPLETE BLOOD COUNT Routine 07/29/2018 5:49 Results for this WITH DIFF RESULT AM PST procedure are in the results section. COMPREHENSIVE Routine 07/29/2018 5:49 Results for this METABOLIC PANEL AM PST procedure are in the results section. COMPLETE BLOOD COUNT Routine 07/28/2018 5:36 Results for this WITH DIFF RESULT AM PST procedure are in the results section. COMPLETE BLOOD COUNT Routine 07/28/2018 5:36 Results for this WITH DIFF RESULT AM PST procedure are in the results section. COMPREHENSIVE Routine 07/28/2018 5:36 Results for this METABOLIC PANEL AM PST procedure are in the results section. COMPLETE BLOOD COUNT Routine 07/27/2018 6:11 Results for this WITH DIFF RESULT AM PST procedure are in the results section. COMPLETE BLOOD COUNT Routine 07/27/2018 6:11 Results for this WITH DIFF RESULT AM PST procedure are in the results section. LIPID PANEL Routine 07/27/2018 6:11 Results for this AM PST procedure are in the results section. COMPREHENSIVE Routine 07/27/2018 6:11 Results for this METABOLIC PANEL AM PST procedure are in the results section. COMPLETE BLOOD COUNT Routine 07/26/2018 1:24 Results for this PM PST procedure are in the results section. COMPREHENSIVE Routine 07/26/2018 1:24 Results for this METABOLIC PANEL PM PST procedure are in the results section. PREPARE/CROSSMATCH RBC STAT 07/25/2018 6:30 Results for this AM PST procedure are in the results section. COMPLETE BLOOD COUNT Routine 07/25/2018 5:20 Results for this WITH DIFF RESULT AM PST procedure are in the results section. COMPLETE BLOOD COUNT Routine 07/25/2018 5:20 Results for this WITH DIFF RESULT AM PST procedure are in the results section. MAGNESIUM Routine 07/25/2018 5:20 Results for this AM PST procedure are in the results section. COMPREHENSIVE Routine 07/25/2018 5:20 Results for this METABOLIC PANEL AM PST procedure are in the results section. TRANSFUSE RED BLOOD STAT 07/24/2018 6:21 CELLS PM PST ECHOCARDIOGRAM LIMITED Routine 07/24/2018 4:16 Demand ischemia Results for this WITH CONTRAST PM PST (CMS/HCC) procedure are in the results section. TRANSFUSE RED BLOOD STAT 07/24/2018 2:[address] ABDOMEN PELVIS Routine 07/24/2018 1:41 Results for this WITHOUT CONTRAST PM PST procedure are in the results section. URINE MICROSCOPIC Routine 07/24/2018 1:27 Results for this PM PST procedure are in the results section. URINALYSIS, REFLEX Routine 07/24/2018 1:27 Results for this MICROSCOPIC AND PM PST procedure are in CULTURE IF INDICATED the results section. OCCULT BLOOD, FECAL Routine 07/24/2018 1:18 Results for this PM PST procedure are in the results section. MRSA SCREEN Routine 07/24/2018 1:18 Results for this PM PST procedure are in the results section. THYROID STIMULATING STAT 07/24/2018 11:10 Results for this HORMONE AM PST procedure are in the results section. PHAM TOP - NAFLUORIDE Routine 07/24/2018 10:48 Results for this AM PST procedure are in the results section. EXTRA TUBES Routine 07/24/2018 10:48 Results for this AM PST procedure are in the results section. ECG 12-LEAD STAT 07/24/2018 10:45 Results for this AM PST procedure are in the results section. COMPLETE BLOOD COUNT STAT 07/24/2018 10:41 Results for this WITH DIFF RESULT AM PST procedure are in the results section. PARTIAL THROMBOPLASTIN STAT 07/24/2018 10:41 Results for this TIME, ACTIVATED AM PST procedure are in the results section. PROTHROMBIN TIME STAT 07/24/2018 10:41 Results for this AM PST procedure are in the results section. COMPLETE BLOOD COUNT STAT 07/24/2018 10:41 Results for this WITH DIFF RESULT AM PST procedure are in the results section. TYPE AND SCREEN STAT 07/24/2018 10:41 Results for this AM PST procedure are in the results section. TROPONIN STAT Add-on 07/24/2018 10:41 Results for this AM PST procedure are in the results section. LIPASE STAT 07/24/2018 10:41 Results for this AM PST procedure are in the results section. COMPREHENSIVE STAT 07/24/2018 10:41 Results for this METABOLIC PANEL AM PST procedure are in the results section. ED CRITICAL CARE Routine 07/24/2018 10:26 Results for this AM PST procedure are in the results section. in this encounter Results US VENOUS UPPER EXTREMITY DOPPLER RIGHT (07/29/2018 10:34 AM) Narrative Performed At [facility] [place], [place]. [id number] PATIENT NAME: JANET MENDEZ : 1940 GENDER: F EXAM DATE: 07/29/2018? 10:03 ORDERED FROM: [facility] ORDERING PHYSICIAN: RICHIE MOSER CC:?--?-?-?- CONTRAST:? READING STATION ID: [id number] mGy: PROCEDURE:?US VENOUS UPPER EXTREMITY DOPPLER RIGHT INDICATIONS:?swollen, r/o dvt TECHNIQUE:? Real-time imaging, as well as color and pulse Doppler interrogation, was performed of the right upper extremity deep veins from the inferior neck to the antecubital fossa.? COMPARISON:?[facility], CT, CT ABDOMEN PELVIS WITHOUT CONTRAST, 07/24/2018, 13:14. FINDINGS:?The internal jugular vein, visualized portions of the subclavian vein, axillary, and brachial veins are free of intraluminal thrombus.?Where physically possible, the veins are normally compressible.?Color and pulse Doppler demonstrate normal intraluminal flow, with expected phasicity and pulsatility.?Additional scanning of the cephalic and basilic veins of the superficial system demonstrate normal compressibility, without thrombus.? IMPRESSION:? Negative for deep venous thrombosis. Dictated by: Pako Love M.D. on 07/29/2018 at 10:17? Approved by: Pako Love M.D. on 07/29/2018 at 10:17? Procedure Note Interface, Radiology Results In - 07/29/2018 11:19 [place]. [address] PATIENT NAME: JANET MENDEZ : 1940 GENDER: F EXAM DATE: 07/29/2018 10:03 ORDERED FROM: [facility] ORDERING PHYSICIAN: RICHIE MOSER CC: -- - - - CONTRAST: READING STATION ID: [id number] mGy: PROCEDURE: US VENOUS UPPER EXTREMITY DOPPLER RIGHT INDICATIONS: swollen, r/o dvt TECHNIQUE: Real-time imaging, as well as color and pulse Doppler interrogation, was performed of the right upper extremity deep veins from the inferior neck to the antecubital fossa. COMPARISON: [facility], CT, CT ABDOMEN PELVIS WITHOUT CONTRAST, , 13:14. FINDINGS: The internal jugular vein, visualized portions of the subclavian vein, axillary, and brachial veins are free of intraluminal thrombus. Where physically possible, the veins are normally compressible. Color and pulse Doppler demonstrate normal intraluminal flow, with expected phasicity and pulsatility. Additional scanning of the cephalic and basilic veins of the superficial system demonstrate normal compressibility, without thrombus. IMPRESSION: Negative for deep venous thrombosis. Dictated by: Pako Love M.D. on 07/29/2018 at 10:17 Approved by: Pako Love M.D. on 07/29/2018 at 10:17 Performing Organization Address City/[facility] Phone Number [facility] [address] [place] [id number] ECG 12 lead (07/29/2018 8:56 AM) HR 87 bpm [facility] RR 690 ms [facility] IA 190 ms [facility] QRSD 204 ms [facility] QT 467 ms [facility] QTc 562 ms [facility] QRS -61 deg [facility] T 108 deg [facility] Impression - ABNORMAL ECG - [facility] Impression SR [facility] Impression normal P axis, V-rate 50-99 [facility] Impression Sinus rhythm [facility] Impression NIVCDL [facility] Impression QRSd >mS & LAD [facility] Impression Nonspecific IVCD with LAD [facility] Impression NSC [facility] Impression No significant change [facility] Narrative Performed At Performing Organization Address City/[facility] Phone Number [facility] [address] [place] [address] Yellow Top - SST (07/29/2018 5:49 AM) Extra Tube Hold for add-ons.Comment: Auto [facility] resulted. Specimen Blood - Blood, Venous Performing Organization Address [facility] Phone Number [facility] [address] [place] [address] Complete blood count with diff (07/29/2018 5:49 AM) WBC Auto 5.8 3.8 - 10.1 x10E3/uL [facility] RBC 3.02 (L) 3.90 - 5.20 x10E6/uL [facility] Hemoglobin 8.9 (L) 12.0 - 15.6 g/dL [facility] Hematocrit 29.2 (L) 35.0 - 46.0 % [facility] MCV 97 81 - 100 [facility] MCH 29.5 27.0 - 35.0 pg [facility] MCHC 30.5 (L) 32.0 - 37.0 g/dL [facility] RDW 17.9 (H) 12.3 - 15.4 % [facility] Platelets 310 150 - 400 x10E3/uL [facility] MPV 9.1 No reference range [facility] % Neutrophils 70 Not Established % [facility] % Lymphocytes 17 Not Established [facility] % Monocytes 6 Not Established [facility] % Eosinophils 5 Not Established [facility] % Basophils 1 Not Established % [facility] Abs. Neutrophils 4.1 1.6 - 6.9 x10E3/uL [facility] Abs. Lymphocytes 1.0 (L) 1.12 - 4.80 x10E3/uL [facility] Abs. Monocytes 0.4 0.0 - 1.0 x10E3/uL [facility] Abs. Eosinophils 0.3 0.0 - 0.5 x10E3/uL [facility] Abs. Basophils 0.0 0.0 - 0.4 x10E3/uL [facility] Abs. Neutrophils (Auto) 4,100.0 >=1,500.0 /uL [facility] Specimen Blood - Blood, Venous Performing Organization Address City/State/Zipcode Phone Number [facility] [address] [place] [address] [phone] Comprehensive Metabolic Panel (07/29/2018 5:49 AM) Sodium 138 134 - 144 mmol/L [facility] Potassium 5.0 3.5 - 5.2 mmol/L [facility] Chloride 100 97 - 108 mmol/L [facility] CO2 28 18 - 29 mmol/L [facility] Anion Gap 10 3 - 11 mmol/L [facility] BUN 69.0 (H) 8.0 - 27.0 mg/dL [facility] Creatinine 1.96 (H) 0.57 - 1.00 mg/dL [facility] Glucose, Serum 99 60 - 99 mg/dL [facility] Calcium 9.8 8.5 - 10.1 mg/dL [facility] AST 14 0 - 50 U/L [facility] ALT 10 0 - 32 U/L [facility] Alkaline Phosphatase 86 25 - 165 U/L [facility] Total Protein 7.0 6.4 - 8.4 g/dL [facility] eGFR 24 (L) >60 mL/min [facility] Albumin 3.8 3.4 - 5.0 g/dL [facility] Bilirubin, Total 0.8 <=1.2 mg/dL [facility] BUN/Creatinine Ratio 35.2 (H) 7.0 - 24.0 [facility] Specimen Blood - Blood, Venous Performing Organization Address City/State/Zipcode Phone Number [facility] [address] [place] [address] Complete blood count with diff (07/28/2018 5:36 AM) WBC Auto 6.6 3.8 - 10.1 x10E3/uL [facility] RBC 3.14 (L) 3.90 - 5.20 x10E6/uL [facility] Hemoglobin 9.2 (L) 12.0 - 15.6 g/dL [facility] Hematocrit 29.7 (L) 35.0 - 46.0 % [facility] MCV 95 81 - 100 fL [facility] MCH 29.3 27.0 - 35.0 pg [facility] MCHC 31.0 (L) 32.0 - 37.0 g/dL [facility] RDW 17.5 (H) 12.3 - 15.4 % [facility] Platelets 318 150 - 400 x10E3/uL [facility] MPV 9.3 No reference range fL [facility] % Neutrophils 66 Not Established % [facility] % Lymphocytes 17 Not Established % [facility] % Monocytes 11 Not Established % [facility] % Eosinophils 5 Not Established % [facility] % Basophils 1 Not Established % [facility] Abs. Neutrophils 4.3 1.6 - 6.9 x10E3/uL [facility] Abs. Lymphocytes 1.2 1.12 - 4.80 x10E3/uL [facility] Abs. Monocytes 0.7 0.0 - 1.0 x10E3/uL [facility] Abs. Eosinophils 0.4 0.0 - 0.5 x10E3/uL [facility] Abs. Basophils 0.0 0.0 - 0.4 x10E3/uL [facility] Abs. Neutrophils (Auto) 4,300.0 >=1,500.0 /uL [facility] Specimen Blood - Blood, Venous Performing Organization Address City/State/Zipcode Phone Number [facility] [address] [place] [address] [phone] Comprehensive Metabolic Panel (07/28/2018 5:36 AM) Sodium 137 134 - 144 mmol/L [facility] Potassium 5.0 3.5 - 5.2 mmol/L [facility] Chloride 99 97 - 108 mmol/L [facility] CO2 25 18 - 29 mmol/L [facility] Anion Gap 13 (H) 3 - 11 mmol/L [facility] BUN 76.0 (H) 8.0 - 27.0 mg/dL [facility] Creatinine 2.01 (H) 0.57 - 1.00 mg/dL [facility] Glucose, Serum 91 60 - 99 mg/dL [facility] Calcium 9.9 8.5 - 10.1 mg/dL [facility] AST 13 0 - 50 U/L [facility] ALT 11 0 - 32 U/L [facility] Alkaline Phosphatase 88 25 - 165 U/L [facility] Total Protein 6.9 6.4 - 8.4 g/dL [facility] eGFR 23 (L) >60 mL/min [facility] Albumin 3.7 3.4 - 5.0 g/dL [facility] Bilirubin, Total 0.9 <=1.2 mg/dL [facility] BUN/Creatinine Ratio 37.8 (H) 7.0 - 24.0 [facility] Specimen Blood - Blood, Venous Performing Organization Address City/State/Zipcode Phone Number [facility] [address], [place] [address] [phone] Complete blood count with diff (07/27/2018 6:11 AM) WBC Auto 5.0 3.8 - 10.1 x10E3/uL [facility] RBC 3.02 (L) 3.90 - 5.20 x10E6/uL [facility] Hemoglobin 8.7 (L) 12.0 - 15.6 g/dL [facility] Hematocrit 28.8 (L) 35.0 - 46.0 % [facility] MCV 95 81 - 100 [facility] MCH 28.8 27.0 - 35.0 pg [facility] MCHC 30.2 (L) 32.0 - 37.0 g/dL [facility] RDW 17.2 (H) 12.3 - 15.4 % [facility] Platelets 307 150 - 400 x10E3/uL [facility] MPV 9.1 No reference range [facility] % Neutrophils 67 Not Established % [facility] % Lymphocytes 18 Not Established % [facility] % Monocytes 8 Not Established % [facility] % Eosinophils 5 Not Established % [facility] % Basophils 1 Not Established % [facility] Abs. Neutrophils 3.4 1.6 - 6.9 x10E3/uL [facility] Abs. Lymphocytes 0.9 (L) 1.12 - 4.80 x10E3/uL [facility] Abs. Monocytes 0.4 0.0 - 1.0 x10E3/uL [facility] Abs. Eosinophils 0.3 0.0 - 0.5 x10E3/uL [facility] Abs. Basophils 0.0 0.0 - 0.4 x10E3/uL [facility] Abs. Neutrophils (Auto) 3,400.0 >=1,500.0 /uL [facility] Specimen Blood - Blood, Venous Performing Organization Address [facility] Phone Number [facility] [address] [place], [place] [phone] Comprehensive Metabolic Panel (07/27/2018 6:11 AM) Sodium 135 134 - 144 mmol/L [facility] Potassium 5.0 3.5 - 5.2 mmol/L [facility] Chloride 96 (L) 97 - 108 mmol/L [facility] CO2 25 18 - 29 mmol/L [facility] Anion Gap 14 (H) 3 - 11 mmol/L [facility] BUN 79.0 (H) 8.0 - 27.0 mg/dL [facility] Creatinine 2.16 (H) 0.57 - 1.00 mg/dL [facility] Glucose, Serum 95 60 - 99 mg/dL [facility] Calcium 9.4 8.5 - 10.1 mg/dL [facility] AST 14 0 - 50 U/L [facility] ALT 13 0 - 32 U/L [facility] Alkaline Phosphatase 93 25 - 165 U/L [facility] Total Protein 6.5 6.4 - 8.4 g/dL [facility] eGFR 21 (L) >60 mL/min [facility] Albumin 3.8 3.4 - 5.0 g/dL [facility] Bilirubin, Total 0.9 <=1.2 mg/dL [facility] BUN/Creatinine Ratio 36.6 (H) 7.0 - 24.0 [facility] Specimen Blood - Blood, Venous Performing Organization Address [facility] Phone Number [facility] [address] [place] [address] Lipid panel (07/27/2018 6:11 AM) Triglycerides Level 113 0 - 149 mg/dL [facility] Total Cholesterol 204 (H) 100 - 199 mg/dL [facility] LDL Cholesterol, Calculated 106 (H) <=99 mg/dL [facility] HDL Cholesterol 75 >=39 mg/dL [facility] VLDL Cholesterol 23 No Reference Range [facility] Established mg/dL LAB CHOL/HDL Ratio 2.7 <=4.4 [facility] Cholesterol Ratio (LDL/HDL) 1.4 ratio units [facility] Specimen Blood - Blood, Venous Narrative Performed At [facility] ?NATIONAL CHOLESTEROL GUIDELINES [facility]ATIONAL [facility] ([facility]) guidelines for classificaton, testing and management of cholesterol levels in adults over 20 years of age. This new classification creates three categories of risk for coronary heart disease, regardless of age or sex, according to total amd LDL cholesterols levels: ? Based on total cholesterol level Desrirable?<200 mg/dl Borderline-high?200-239 mg/dl High? >=240 mg/dl ? Based on cholesterol ratio CHD RISK? CHOL/HDL RATIO -- ? MALE?FEMALE 0.5 x Average?3.4?3.3 1.0 x Average?5.0?4.4 2.0 x Average?9.6?7.1 3.0 x Average?13.5? 11.0 Performing Organization Address City/State/Zipcode Phone Number [facility] [address] [place] [address] Comprehensive Metabolic Panel (07/26/2018 1:24 PM) Sodium 134 134 - 144 mmol/L [facility] Potassium 5.0 3.5 - 5.2 mmol/L [facility] Chloride 94 (L) 97 - 108 mmol/L [facility] CO2 27 18 - 29 mmol/L [facility] Anion Gap 13 (H) 3 - 11 mmol/L [facility] BUN 78.0 (H) 8.0 - 27.0 mg/dL [facility] Creatinine 2.05 (H) 0.57 - 1.00 mg/dL [facility] Glucose, Serum 119 (H) 60 - 99 mg/dL [facility] Calcium 9.3 8.5 - 10.1 mg/dL [facility] AST 19 0 - 50 U/L [facility] ALT 13 0 - 32 U/L [facility] Alkaline Phosphatase 95 25 - 165 U/L [facility] Total Protein 6.3 6.4 - 8.4 g/dL [facility] eGFR 22 (L) >60 mL/min [facility] Albumin 3.7 3.4 - 5.0 g/dL [facility] Bilirubin, Total 1.1 <=1.2 mg/dL [facility] BUN/Creatinine Ratio 38.0 (H) 7.0 - 24.0 [facility] Specimen Blood - Blood, Venous Performing Organization Address City/State/Zipcode Phone Number [facility] [address] [place] [address] Complete blood count (07/26/2018 1:24 PM) WBC Auto 5.8 3.8 - 10.1 x10E3/uL [facility] RBC 2.95 (L) 3.90 - 5.20 x10E6/uL [facility] Hemoglobin 8.7 (L) 12.0 - 15.6 g/dL [facility] Hematocrit 27.9 (L) 35.0 - 46.0 % [facility] MCV 95 81 - 100 fL [facility] MCH 29.5 27.0 - 35.0 pg [facility] MCHC 31.2 (L) 32.0 - 37.0 g/dL [facility] RDW 17.2 (H) 12.3 - 15.4 % [facility] Platelets 312 150 - 400 x10E3/uL [facility] MPV 9.2 No reference range [facility] Specimen Blood - Blood, Venous Performing Organization Address City/[facility] Phone Number [facility] [address] [place], [place] [phone] Prepare/Crossmatch RBC: 2 Units (07/25/2018 6:30 AM) Product Blood Type 5100 [facility] Unit Number [id number] [facility] Dispense Status Transfused [facility] Product Identification Red Blood Cells [facility] Product Code [id number] [facility] Product Blood Type (Readable) O [facility] Product Blood Type [facility] Unit Number [id number] [facility] Dispense Status Transfused [facility] Product Identification Red Blood Cells [facility] Product Code [id number] [facility] Product Blood Type (Readable) O Pos [facility] Issue Date/Time [id number] [facility] Issue Date/Time [id number] [facility] Specimen Blood - Blood, Venous Performing Organization Address City/[facility] Phone Number [address] [phone] BLOOD BANK Complete blood count with diff (07/25/2018 5:20 AM) WBC Auto 6.5 3.8 - 10.1 x10E3/uL [facility] RBC 3.03 (L) 3.90 - 5.20 x10E6/uL [facility] Hemoglobin 8.6 (L) 12.0 - 15.6 g/dL [facility] Hematocrit 27.7 (L) 35.0 - 46.0 % [facility] MCV 91 81 - 100 fL [facility] MCH 28.4 27.0 - 35.0 pg [facility] MCHC 31.0 (L) 32.0 - 37.0 g/dL [facility] RDW 16.8 (H) 12.3 - 15.4 % [facility] Platelets 316 150 - 400 x10E3/uL [facility] MPV 9.7 No reference range fL [facility] % Neutrophils 70 Not Established % [facility] % Lymphocytes 15 Not Established % [facility] % Monocytes 10 Not Established % [facility] % Eosinophils 4 Not Established % [facility] % Basophils 1 Not Established % [facility] Abs. Neutrophils 4.6 1.6 - 6.9 x10E3/uL [facility] Abs. Lymphocytes 1.0 (L) 1.12 - 4.80 x10E3/uL [facility] Abs. Monocytes 0.7 0.0 - 1.0 x10E3/uL [facility] Abs. Eosinophils 0.3 0.0 - 0.5 x10E3/uL [facility] Abs. Basophils 0.0 0.0 - 0.4 x10E3/uL [facility] Abs. Neutrophils (Auto) 4,600.0 >=1,500.0 /uL [facility] Specimen Blood - Blood, Venous Performing Organization Address City/[facility] Phone Number [facility] [address] [place] [address] Magnesium (07/25/2018 5:20 AM) Magnesium 2.5 1.6 - 2.6 mg/dL [facility] Specimen Blood - Blood, Venous Performing Organization Address [facility] Phone Number [facility] [address] [place] [address] Comprehensive metabolic panel (07/25/2018 5:20 AM) Sodium 133 (L) 134 - 144 mmol/L [facility] Potassium 4.6 3.5 - 5.2 mmol/L [facility] Chloride 93 (L) 97 - 108 mmol/L [facility] CO2 23 18 - 29 mmol/L [facility] Anion Gap 17 (H) 3 - 11 mmol/L [facility] BUN 77.0 (H) 8.0 - 27.0 mg/dL [facility] Creatinine 1.91 (H) 0.57 - 1.00 mg/dL [facility] Glucose, Serum 101 (H) 60 - 99 mg/dL [facility] Calcium 9.4 8.5 - 10.1 mg/dL [facility] AST 16 0 - 50 U/L [facility] ALT 13 0 - 32 U/L [facility] Alkaline Phosphatase 98 25 - 165 U/L [facility] Total Protein 6.6 6.4 - 8.4 g/dL [facility] eGFR 24 (L) >60 mL/min [facility] Albumin 3.9 3.4 - 5.0 g/dL [facility] Bilirubin, Total 1.0 <=1.2 mg/dL [facility] BUN/Creatinine Ratio 40.3 (H) 7.0 - 24.0 [facility] Specimen Blood - Blood, Venous Performing Organization Address City/State/Zipcode Phone Number [facility] [address] [place] [address] [phone] ECHOCARDIOGRAM LIMITED WITH CONTRAST (07/24/2018 4:16 PM) Narrative Performed At ? [facility] ? [facility] + +? Hospital?+ ---------+ :?:?[address]? : :?:?[address]?:? : :?:?[place],?:? : :?:? [place] [address]?:? : :?:?Phone: [phone] ? Echocardiogram Report + + :Name: JANET MENDEZ? Study Date: 07/24/2018?Height: 62 in?: :Hospital ? Weight: 215 lb : :?Gender: Female?BSA: 2.0 m2?: :: 1940? Age: 78 yrs? BP: 105/56 mmHg: :Reason For Study: DEMAND ISCHEMIA?: :Ordering Physician: Blue? : :Hospitalist? Performed By: Yelena Corona? : :Referring: VERONICA, RAY B? : + + Interpretation Summary A limited 2D echocardiogram was performed to assess LV function in a patient with suspected demand ischemia. The left ventricle is moderately dilated. Left ventricular systolic function is severely reduced. The ejection fraction is estimated to be 20-25%. Contrast examination demonstrates severe hypokinesis or akinesis involving the distal half of the left ventricle with mild hypokinesis but fairly well- preserved contractility at the base of the left ventricle. This pattern is quite consistent with stress cardiomyopathy. The prior examination from June 22 did not visualize the apex well but the left ventricular systolic function at that point appeared likely normal and the current pattern suggesting stress cardiomyopathy appears to be new. There is a pacemaker lead in the right ventricle. The right ventricle grossly appears normal in size with probable normal systolic function. There is moderate tricuspid regurgitation. The right ventricular systolic pressure is estimated to be at least 62 mmHg based on an estimated right atrial pressure of 15 mm Hg. There is moderate to severe mitral regurgitation. There is mild aortic stenosis. There is mild aortic regurgitation. No other echocardiographic abnormalities seen. This patient has evidence of severe ventricular dysfunction likely related to stress cardiomyopathy. In addition there appears to be significant worsening in the degree of mitral regurgitation with mild to moderate aortic insufficiency and mild aortic stenosis. Moderately severe pulmonary hypertension also notable. Cardiology consultation suggested. Procedure:? A two-dimensional transthoracic echocardiogram with color flow and Doppler was performed in limited views only. The study quality was technically difficult. A contrast injection of Definity was performed to improve assessment of LV function. Comparison is made with the echocardiogram of 06/22/18. The patient was in normal sinus rhythm during the exam. Left Ventricle:? The left ventricle is moderately dilated. Left ventricular systolic function is severely reduced. The ejection fraction is estimated to be 20-25%. Contrast examination demonstrates severe hypokinesis or akinesis involving the distal half of the left ventricle with mild hypokinesis but fairly well-preserved contractility at the base of the left ventricle. This pattern is quite consistent with stress cardiomyopathy. The prior examination from June 22 did not visualize the apex well but the left ventricular systolic function at that point appeared likely normal and the current pattern suggesting stress cardiomyopathy appears to be new. Right Ventricle:? There is a pacemaker lead in the right ventricle. The right ventricle grossly appears normal in size with probable normal systolic function. Mitral Valve:? The mitral valve leaflets appear mildly thickened, but open well. There is moderate to severe mitral regurgitation. Aortic Valve:? The aortic valve is trileaflet. There is moderate aortic valve sclerosis. Leaflet mobility is mild to moderately reduced. There is mild aortic stenosis. There is mild aortic regurgitation. Tricuspid Valve:? The tricuspid valve is normal. There is moderate tricuspid regurgitation. The right ventricular systolic pressure is estimated to be at least 62 mmHg based on an estimated right atrial pressure of 15 mm Hg. Great Vessels:? The IVC is dilated (diameter is greater than 2.1 cm) and it collapses less than 50% with a sniff. This suggests a high right atrial pressure of 15 mm Hg. Pericardium/ Pleura? There is no pericardial effusion. There is no pleural effusion. MMode/2D Measurements & Calculations LVIDd: 5.8 cm? IVC diam: 2.3 cm LVIDs: 4.0 cm IVSd: 1.2 cm LVPWd: 1.3 cm LV ceron. diameter/BSA (cm/m^2): 2.9 LV sys. diameter/BSA (cm/m^2): 2.0 FS: 31.5 % ? Reading Physician:04:33 PM Procedure Note Interface, Radiology Results In - 07/24/2018 4:33 PM PST [facility] + + Hospital +---------+ : : [address] : : : : [place], : : : : [place] [address] : : : : Phone: [phone] Echocardiogram Report + + :Name: JANET MENDEZ Study Date: 07/24/2018 Height: 62 in : :Hospital Weight: 215 lb : : Gender: Female BSA: 2.0 m2 : :: 1940 Age: 78 yrs BP: 105/56 mmHg: :Reason For Study: DEMAND ISCHEMIA : :Ordering Physician: Boyd : :Hospitalist Performed By: Yelena Corona : :Referring: RAY MARTIN B : + + Interpretation Summary A limited 2D echocardiogram was performed to assess LV function in a patient with suspected demand ischemia. The left ventricle is moderately dilated. Left ventricular systolic function is severely reduced. The ejection fraction is estimated to be 20-25%. Contrast examination demonstrates severe hypokinesis or akinesis involving the distal half of the left ventricle with mild hypokinesis but fairly well- preserved contractility at the base of the left ventricle. This pattern is quite consistent with stress cardiomyopathy. The prior examination from June 22 did not visualize the apex well but the left ventricular systolic function at that point appeared likely normal and the current pattern suggesting stress cardiomyopathy appears to be new. There is a pacemaker lead in the right ventricle. The right ventricle grossly appears normal in size with probable normal systolic function. There is moderate tricuspid regurgitation. The right ventricular systolic pressure is estimated to be at least 62 mmHg based on an estimated right atrial pressure of 15 mm Hg. There is moderate to severe mitral regurgitation. There is mild aortic stenosis. There is mild aortic regurgitation. No other echocardiographic abnormalities seen. This patient has evidence of severe ventricular dysfunction likely related to stress cardiomyopathy. In addition there appears to be significant worsening in the degree of mitral regurgitation with mild to moderate aortic insufficiency and mild aortic stenosis. Moderately severe pulmonary hypertension also notable. Cardiology consultation suggested. Procedure: A two-dimensional transthoracic echocardiogram with color flow and Doppler was performed in limited views only. The study quality was technically difficult. A contrast injection of Definity was performed to improve assessment of LV function. Comparison is made with the echocardiogram of 06/22/18. The patient was in normal sinus rhythm during the exam. Left Ventricle: The left ventricle is moderately dilated. Left ventricular systolic function is severely reduced. The ejection fraction is estimated to be 20-25%. Contrast examination demonstrates severe hypokinesis or akinesis involving the distal half of the left ventricle with mild hypokinesis but fairly well-preserved contractility at the base of the left ventricle. This pattern is quite consistent with stress cardiomyopathy. The prior examination from June 22 did not visualize the apex well but the left ventricular systolic function at that point appeared likely normal and the current pattern suggesting stress cardiomyopathy appears to be new. Right Ventricle: There is a pacemaker lead in the right ventricle. The right ventricle grossly appears normal in size with probable normal systolic function. Mitral Valve: The mitral valve leaflets appear mildly thickened, but open well. There is moderate to severe mitral regurgitation. Aortic Valve: The aortic valve is trileaflet. There is moderate aortic valve sclerosis. Leaflet mobility is mild to moderately reduced. There is mild aortic stenosis. There is mild aortic regurgitation. Tricuspid Valve: The tricuspid valve is normal. There is moderate tricuspid regurgitation. The right ventricular systolic pressure is estimated to be at least 62 mmHg based on an estimated right atrial pressure of 15 mm Hg. Great Vessels: The IVC is dilated (diameter is greater than 2.1 cm) and it collapses less than 50% with a sniff. This suggests a high right atrial pressure of 15 mm Hg. Pericardium/ Pleura There is no pericardial effusion. There is no pleural effusion. MMode/2D Measurements & Calculations LVIDd: 5.8 cm IVC diam: 2.3 cm LVIDs: 4.0 cm IVSd: 1.2 cm LVPWd: 1.3 cm LV ceron. diameter/BSA (cm/m^2): 2.9 LV sys. diameter/BSA (cm/m^2): 2.0 FS: 31.5 % Reading Physician:04:33 PM Performing Organization Address City/State/Zipcode Phone Number [facility] [address] [place] [id number] ABDOMEN PELVIS WITHOUT CONTRAST (07/24/2018 1:41 PM) Narrative Performed At [facility] [place]. [address] PATIENT NAME: JANET MENDEZ : 1940 GENDER: F EXAM DATE: 07/24/2018? 13:14 ORDERED FROM: [facility] ORDERING PHYSICIAN: RAY MARTIN CC:?--?-?-?- CONTRAST:? READING STATION ID: [id number] mGy: PROCEDURE:?CT ABDOMEN PELVIS WITHOUT CONTRAST INDICATIONS:?abdominal wall hematoma causing severe anemia TECHNIQUE:? Noncontrast 5 mm thick sections acquired from the diaphragms to the symphysis.?5 mm coronal and sagittal reformats were then performed.?For radiation dose reduction, the following was used:?automated exposure control, adjustment of mA and/or kV according to patient size.? COMPARISON:?, CT, CT CHEST ABD PEL WO CON, 06/23/2018, 12:04. FINDINGS:? Image quality:?Excellent.? ABDOMEN:? Lung bases:?Lung bases are abnormal with a patchy pattern of alveolar infiltration again seen within the lower lungs bilaterally, likely mildly improved from the comparison study from 06/23/18.?Only a very small portion of the lungs are included on this study. Heart size is normal.? Solid organs:?Liver is normal in size.?Gallbladder contains multiple moderately large gallstones peripherally calcified layering dependently within the gallbladder lumen.?Pancreas is normal in contours.?Spleen is normal in size.?No adrenal nodules.?Kidneys are normal in size, without hydronephrosis but there is what appears to be mild nonobstructive nephrolithiasis involving the nondistended calyces of the kidneys bilaterally.?The right kidney is normal in size, left kidney is asymmetrically smaller..? Peritoneum and bowel:?Unenhanced bowel loops demonstrate normal wall thickness and caliber.?No free fluid or air.? Nodes and vessels:?No retroperitoneal or mesenteric adenopathy by size criteria.?Aorta and inferior vena cava are normal in caliber.? Miscellaneous:?No ventral hernias.? PELVIS:? Genitourinary:?Bladder wall thickness is normal.?Anteverted uterus, scattered uterine fibroids with internal dystrophic calcifications partially visualized. Miscellaneous:?No inguinal hernias or adenopathy.?Patchy areas of subcutaneous fat edema scattered over the lower abdominal and pelvic body wall anteriorly.?No significant body wall hematoma is found. Bones:?No suspicious bony lesions.?No vertebral body compression fractures.? IMPRESSION: Several patchy areas of subcutaneous fat edema are present along the lower abdominal and pelvic anterior body wall consistent with sites of injection but a discrete large hematoma as possible source of reported anemia is not found. Mild degree of patchy alveolar air space infiltration is visualized on the far inferior margin of the lung parenchyma included on this abdomen/pelvis study.?This appears to have improved from the comparison CT that included the entire chest 06/23/18. Several moderately large peripherally calcified gallstones are seen within the gallbladder lumen without evidence of acute cholecystitis or biliary obstruction.?Small scattered nonobstructive renal collecting system calculi are present bilaterally and several of the calcifications present near the renal sinus bilaterally could represent vascular calcifications instead. Partially visualized anteverted uterus, with uterine fibroids containing dystrophic calcifications. Dictated by: Johnie Carmen M.D. on 07/24/2018 at 14:47? Approved by: Johnie Carmen M.D. on 07/24/2018 at 14:53? Procedure Note Interface, Radiology Results In - 07/24/2018 2:54 [place]. [address] PATIENT NAME: JANET MENDEZ : 1940 GENDER: F EXAM DATE: 07/24/2018 13:14 ORDERED FROM: [facility] ORDERING PHYSICIAN: RAY MARTIN CC: -- - - - CONTRAST: READING STATION ID: [id number] mGy: PROCEDURE: CT ABDOMEN PELVIS WITHOUT CONTRAST INDICATIONS: abdominal wall hematoma causing severe anemia TECHNIQUE: Noncontrast 5 mm thick sections acquired from the diaphragms to the symphysis. 5 mm coronal and sagittal reformats were then performed. For radiation dose reduction, the following was used: automated exposure control, adjustment of mA and/or kV according to patient size. COMPARISON: , CT, CT CHEST ABD PEL WO CON, 06/23/2018, 12:04. FINDINGS: Image quality: Excellent. ABDOMEN: Lung bases: Lung bases are abnormal with a patchy pattern of alveolar infiltration again seen within the lower lungs bilaterally, likely mildly improved from the comparison study from 06/23/18. Only a very small portion of the lungs are included on this study. Heart size is normal. Solid organs: Liver is normal in size. Gallbladder contains multiple moderately large gallstones peripherally calcified layering dependently within the gallbladder lumen. Pancreas is normal in contours. Spleen is normal in size. No adrenal nodules. Kidneys are normal in size, without hydronephrosis but there is what appears to be mild nonobstructive nephrolithiasis involving the nondistended calyces of the kidneys bilaterally. The right kidney is normal in size, left kidney is asymmetrically smaller.. Peritoneum and bowel: Unenhanced bowel loops demonstrate normal wall thickness and caliber. No free fluid or air. Nodes and vessels: No retroperitoneal or mesenteric adenopathy by size criteria. Aorta and inferior vena cava are normal in caliber. Miscellaneous: No ventral hernias. PELVIS: Genitourinary: Bladder wall thickness is normal. Anteverted uterus, scattered uterine fibroids with internal dystrophic calcifications partially visualized. Miscellaneous: No inguinal hernias or adenopathy. Patchy areas of subcutaneous fat edema scattered over the lower abdominal and pelvic body wall anteriorly. No significant body wall hematoma is found. Bones: No suspicious bony lesions. No vertebral body compression fractures. IMPRESSION: Several patchy areas of subcutaneous fat edema are present along the lower abdominal and pelvic anterior body wall consistent with sites of injection but a discrete large hematoma as possible source of reported anemia is not found. Mild degree of patchy alveolar air space infiltration is visualized on the far inferior margin of the lung parenchyma included on this abdomen/pelvis study. This appears to have improved from the comparison CT that included the entire chest 06/23/18. Several moderately large peripherally calcified gallstones are seen within the gallbladder lumen without evidence of acute cholecystitis or biliary obstruction. Small scattered nonobstructive renal collecting system calculi are present bilaterally and several of the calcifications present near the renal sinus bilaterally could represent vascular calcifications instead. Partially visualized anteverted uterus, with uterine fibroids containing dystrophic calcifications. Dictated by: Johnie Carmen M.D. on 07/24/2018 at 14:47 Approved by: Johnie Carmen M.D. on 07/24/2018 at 14:53 Performing Organization Address City/State/Zipcode Phone Number [facility] [address] [place] [phone] Urine microscopic (07/24/2018 1:27 PM) WBC, UA 0-5 0 - 5 /HPF [facility] RBC, UA 0-2 0 - 2 /HPF [facility] Bacteria, UA Moderate (A) None Seen /HPF [facility] Squamous Epithelial Many (A) None seen - Few [facility] Cells, Urine Comment: /[facility] LAB No Urine Culture performed. Probable contamination. Suggest recollection. Specimen Urine - Urine, Clean Catch Performing Organization Address [facility] Phone Number [facility] [address] [place] [address] Urinalysis, reflex Microscopic and Culture if indicated (07/24/2018 1:27 PM) Color, UA Yellow Yellow [facility] Clarity, UA Clear Clear [facility] Specific [place], UA 1.010 1.003 - 1.035 [facility] pH, UA 6.0 5.0 - 8.0 pH [facility] Leukocytes, UA Trace (A) Negative [facility] Nitrite, UA Negative Negative [facility] Protein, UA Negative Negative mg/dL [facility] Glucose, UA Negative Negative mg/dL [facility] Ketones, UA Negative Negative mg/dL [facility] Urobilinogen, UA 0.2 (Normal) 0.2 ? [facility] 1.0 E.U./dL Bilirubin, UA Negative Negative [facility] Blood/Hemoglobin, UA Negative Negative [facility] Specimen Urine - Urine, Clean Catch Performing Organization Address [facility] Phone Number [facility] [address] [place] [address] MRSA Screen (07/24/2018 1:18 PM) MRSA screen by PCR MRSA PCR NOT DETECTED [facility] Specimen Sinus - Nares Performing Organization Address [facility] Phone Number [facility] [address] [place] [address] Occult Blood, Fecal (07/24/2018 1:18 PM) Fecal occult blood, Immunochemical Positive (A) Negative [facility] Specimen Stool - Per Rectum Performing Organization Address [facility] Number [facility] [address] [place] [address] Thyroid stimulating hormone (07/24/2018 11:10 AM) TSH 3.220 0.450 - 4.500 uIU/mL [facility] Specimen Blood - Blood, Venous Performing Organization Address [facility] Number [facility] [address] [place] [address] Pham Top - NaFluoride (07/24/2018 10:48 AM) Extra Tube Hold for add-ons.Comment: Auto [facility] resulted. Specimen Blood - Blood, Venous Performing Organization Address [facility] Number [facility] [address] [place] [address] [phone] ECG 12 lead (07/24/2018 10:45 AM) HR 86 bpm [facility] RR 698 ms [facility] IA 177 ms [facility] QRSD 202 ms [facility] QT 458 ms [facility] QTc 548 ms [facility] QRS -59 deg [facility] T 119 deg [facility] Impression - ABNORMAL ECG - [facility] Impression No clear cut P waves see, probable AF, [facility] also consider SR with PAc's. Suggest repeat with better lead contact. Impression Nonspecific IVCD with LAD, new finding. [facility] Narrative Performed At Performing Organization Address [facility] Phone Number [facility] [address] [place] [address] Troponin (07/24/2018 10:41 AM) Troponin T 0.142 (HC) 0.000 - 0.011 ng/mL [facility] Comment: ? Negative:?less than 0.011 ng/mL Indeterminate:?0.011-0.034 ? Positive:?greater than 0.034 Specimen Blood - Blood, Venous Performing Organization Address City/State/Zipcode Phone Number [facility] [address], [place] [phone] Complete blood count with diff (07/24/2018 10:41 AM) WBC Auto 6.6 3.8 - 10.1 x10E3/uL [facility] RBC 2.42 (L) 3.90 - 5.20 x10E6/uL [facility] Hemoglobin 6.9 (LC) 12.0 - 15.6 g/dL [facility] Hematocrit 22.5 (L) 35.0 - 46.0 % [facility] MCV 93 81 - 100 fL [facility] MCH 28.5 27.0 - 35.0 pg [facility] MCHC 30.7 (L) 32.0 - 37.0 g/dL [facility] RDW 16.7 (H) 12.3 - 15.4 % [facility] Platelets 325 150 - 400 x10E3/uL [facility] MPV 9.5 No reference range [facility] % Neutrophils 73 Not Established % [facility] % Lymphocytes 14 Not Established % [facility] % Monocytes 9 Not Established % [facility] % Eosinophils 3 Not Established % [facility] % Basophils 0 Not Established % [facility] Abs. Neutrophils 4.8 1.6 - 6.9 x10E3/uL [facility] Abs. Lymphocytes 0.9 (L) 1.12 - 4.80 x10E3/uL [facility] Abs. Monocytes 0.6 0.0 - 1.0 x10E3/uL [facility] Abs. Eosinophils 0.2 0.0 - 0.5 x10E3/uL [facility] Abs. Basophils 0.0 0.0 - 0.4 x10E3/uL [facility] Abs. Neutrophils (Auto) 4,800.0 >=1,500.0 /uL [facility] Specimen Blood - Blood, Venous Performing Organization Address [facility] Phone Number [facility] [address], [place] [phone] Lipase (07/24/2018 10:41 AM) Lipase 176 (H) 13 - 60 U/L [facility] Specimen Blood - Blood, Venous Performing Organization Address [facility] Phone Number [facility] [address] [place] [address] Type and screen (07/24/2018 10:41 AM) ABORh O POSITIVE [facility] Antibody Screen NEGATIVE [facility] Pt Hx Check NO RECORDS ON FILE [facility] Specimen Blood - Blood, Venous Performing Organization Address [facility] Phone Number [place] [address], [place] [phone] BLOOD BANK Protime-INR (07/24/2018 10:41 AM) Prothrombin Time 16.8 (H) 8.1 - 12.5 sec [facility] INR 1.7 <=5.0 INR [facility] Comment: LAB Recommended INR Ranges: 2.0-3.0 Thromboembolic States 2.5-3.5 Valves/Recur. Embolism Specimen Blood - Blood, Venous Performing Organization Address [facility] Phone Number [facility] [address] [place] [address] [phone] CMP (07/24/2018 10:41 AM) Sodium 131 (L) 134 - 144 mmol/L [facility] Potassium 4.2 3.5 - 5.2 mmol/L [facility] Chloride 90 (L) 97 - 108 mmol/L [facility] CO2 24 18 - 29 mmol/L [facility] Anion Gap 17 (H) 3 - 11 mmol/L [facility] BUN 78.0 (H) 8.0 - 27.0 mg/dL [facility] Creatinine 2.15 (H) 0.57 - 1.00 mg/dL [facility] Glucose, Serum 121 (H) 60 - 99 mg/dL [facility] Calcium 9.6 8.5 - 10.1 mg/dL [facility] AST 18 0 - 50 U/L [facility] ALT 15 0 - 32 U/L [facility] Alkaline Phosphatase 92 25 - 165 U/L [facility] Total Protein 7.3 6.4 - 8.4 g/dL [facility] eGFR 21 (L) >60 mL/min [facility] Albumin 3.8 3.4 - 5.0 g/dL [facility] Bilirubin, Total 0.8 <=1.2 mg/dL [facility] BUN/Creatinine Ratio 36.3 (H) 7.0 - 24.0 [facility] Specimen Blood - Blood, Venous Performing Organization Address [facility] Phone Number [facility] [address] [place], [place] [phone] APTT (07/24/2018 10:41 AM) aPTT 44.5 (H) 22.8 - 33.0 sec [facility] Specimen Blood - Blood, Venous Performing Organization Address [facility] Phone Number [facility] [address] [place], [place] [phone] ED CRITICAL CARE (07/24/2018 10:26 AM) Narrative Performed At Angela Hoff MD? 07/24/2018?7:04 PM Critical Care Performed by: ANGELA HOFF Authorized by: ANGELA HOFF Critical care provider statement: ?Critical Care Time (min):?40 ?Critical care time was exclusive of:?Separately billable procedures and treating other patients ?Critical care was necessary to treat or prevent imminent or life-threatening deterioration of the following conditions:?Circulatory failure ?Critical care was time spent personally by me on the following activities:?Blood draw for specimens, development of treatment plan with patient or surrogate, discussions with consultants, evaluation of patient's response to treatment, examination of patient, ordering and performing treatments and interventions, ordering and review of laboratory studies, pulse oximetry, re-evaluation of patient's condition, review of old charts and obtaining history from patient or surrogate ?I assumed direction of critical care for this patient from another provider in my specialty: no? in this encounter Visit Diagnoses Diagnosis Acute anemia - Primary NSTEMI (non-ST elevated myocardial infarction) ([facility]) Acute myocardial infarction, subendocardial infarction, episode of care unspecified Acute kidney injury superimposed on chronic kidney disease ([facility]) Demand ischemia ([facility]) Other specified forms of chronic ischemic heart disease Anemia requiring transfusions Administered Medications Active Administered Medications - up to 3 most recent administrations Medication Order MAR Action Action Date Dose Rate Site acetaminophen (TYLENOL) tablet 650 Given 07/28/2018 07:31 PST 650 mg mg 650 mg, oral, Every 6 hours PRN, mild pain, Starting Fri07/24/18 at 1611 Given 07/28/2018 21:11 PST 650 mg Given 07/29/2018 15:23 PST 650 mg aspirin EC tablet 81 mg Given 07/27/2018 09:12 PST 81 mg 81 mg, oral, Daily, First dose on 07/26/18 at 1045 Given 07/28/2018 09:50 PST 81 mg Given 07/29/2018 08:39 PST 81 mg atorvastatin (LIPITOR) tablet 40 mg 40 mg, oral, Nightly, First dose on 07/26/18 at 2100 calcium carbonate (TUMS) chewable tablet Given 07/27/2018 08:52 PST 1,000 mg 1,000 mg 1,000 mg, oral, Daily, First dose on 07/25/18 at 0900, 500 mg tablet contains 200mg of elemental calcium Given 07/28/2018 09:54 PST 1,000 mg Given 07/29/2018 08:41 PST 1,000 mg carvedilol (COREG) tablet 12.5 mg Given 07/28/2018 16:02 PST 12.5 mg 12.5 mg, oral, 2 times daily with meals, First dose on Fri07/24/18 at 1700 Given 07/29/2018 08:38 PST 12.5 mg Given 07/29/2018 15:23 PST 12.5 mg cholecalciferol (vitamin D3) tablet 2,000 Given 07/27/2018 09:14 PST 2,000 Units Units 2,000 Units, oral, Daily, First dose on 07/25/18 at 0900 Given 07/28/2018 09:50 PST 2,000 Units Given 07/29/2018 08:39 PST 2,000 Units docusate sodium (COLACE) capsule 100 mg Given 07/25/2018 09:25 PST 100 mg 100 mg, oral, 2 times daily PRN, constipation, Starting 07/25/18 at 0814 ezetimibe (ZETIA) tablet 10 mg Given 07/27/2018 09:14 PST 10 mg 10 mg, oral, Daily, First dose on 07/25/18 at 0900 Given 07/28/2018 09:52 PST 10 mg Given 07/29/2018 08:38 PST 10 mg heparin (porcine) Given 07/28/2018 09:56 PST 5,000 Units Left Upper Arm injection 5,000 Units (Back) 5,000 Units, subcutaneous, Every 12 hours scheduled, First dose on Fri07/24/18 at 2100 Given 07/28/2018 20:22 PST 5,000 Units Left Upper Arm (Back) Given 07/29/2018 08:44 PST 5,000 Units Left Upper Arm (Back) hydrALAZINE (APRESOLINE) tablet 12.5 mg Given 07/28/2018 20:22 PST 12.5 mg 12.5 mg, oral, 3 times daily, First dose on Fri07/24/18 at 2100 Given 07/29/2018 08:41 PST 12.5 mg Given 07/29/2018 15:23 PST 12.5 mg lisinopril (PRINIVIL,ZESTRIL) tablet 5 mg Given 07/29/2018 08:41 PST 5 mg 5 mg, oral, Daily, First dose on Fri07/29/18 at 0900 nystatin (MYCOSTATIN) ointment Given 07/28/2018 12:33 PST Topical, 2 times daily, First dose on Fri07/28/18 at 1145, Apply to affected area Given 07/28/2018 20:22 PST Given 07/29/2018 09:00 PST ondansetron (ZOFRAN) injection 4 mg Given 07/25/2018 20:39 PST 4 mg 4 mg, intravenous, Every 8 hours PRN, nausea, Starting 07/25/18 at 2000 Given 07/26/2018 20:59 PST 4 mg Given 07/28/2018 20:18 PST 4 mg pantoprazole (PROTONIX) EC tablet 20 mg Given 07/27/2018 09:12 PST 20 mg 20 mg, oral, Every morning before breakfast, First dose on 07/26/18 at 1130, Do not crush or chew. Given 07/28/2018 09:53 PST 20 mg Given 07/29/2018 07:24 PST 20 mg PARoxetine (PAXIL) tablet 10 mg Given 07/27/2018 09:12 PST 10 mg 10 mg, oral, Every morning, First dose on 07/25/18 at 0900, Observe Hazardous Substance Precautions; Do Not Crush, Split Tab or Open Capsules on Floor Given 07/28/2018 09:51 PST 10 mg Given 07/29/2018 08:37 PST 10 mg senna (SENOKOT) tablet 17.2 mg 17.2 mg (2 tablet), oral, Nightly PRN, constipation, Starting 07/25/18 at 0814 sodium chloride 0.9 % (NS) infusion 250 mL New Bag 07/24/2018 11:09 PST 250 mL 250 mL, intravenous, As needed, For use during blood transfusion, Starting Fri07/24/18 at 1051 New Bag 07/24/2018 15:48 PST 250 mL Left Anticubital sodium chloride flush 10 mL Given 07/25/2018 09:25 PST 10 mL 10 mL, intravenous, As needed, line care, Starting Fri07/24/18 at 1403 Given 07/26/2018 09:08 PST 10 mL Given 07/26/2018 11:14 PST 10 mL torsemide (DEMADEX) tablet 40 mg Given 07/28/2018 10:53 PST 40 mg 40 mg, oral, Daily, First dose on Fri07/28/18 at 1000 Inactive Administered Medications - up to 3 most recent administrations Medication Order MAR Action Action Date Dose Rate Site furosemide (LASIX) injection 40 mg Given 07/25/2018 11:58 PST 40 mg 40 mg, intravenous, Once, 07/25/18 at 1100, For 1 dose furosemide (LASIX) injection 40 mg Given 07/26/2018 11:12 PST 40 mg 40 mg, intravenous, 2 times daily, First dose on 07/26/18 at 1015 Given 07/27/2018 08:56 PST 40 mg lisinopril (PRINIVIL,ZESTRIL) tablet 2.5 mg Given 07/26/2018 09:08 PST 2.5 mg 2.5 mg, oral, Daily, First dose on 07/25/18 at 1430 Given 07/27/2018 09:13 PST 2.5 mg Given 07/28/2018 09:51 PST 2.5 mg ondansetron ODT (ZOFRAN-ODT) disintegrating Given 07/29/2018 15:22 PST 8 mg tablet 8 mg 8 mg, oral, Once, Fri07/29/18 at 1515, For 1 dose perflutren lipid microsphere (DEFINITY) Given 07/24/2018 14:30 PST 1.5 mL injection 1.5 mL 1.5 mL, intravenous, Once in imaging, First dose on Fri07/24/18 at 1630, For 1 dose torsemide (DEMADEX) tablet 40 mg Given 07/26/2018 09:07 PST 40 mg 40 mg, oral, Daily, First dose on 07/26/18 at 0900 in this encounter Insurance Payer Benefit Plan / Group Subscriber ID Type Phone Address MEDICARE MEDICARE PART A AND B xxxxxxxxxxx [phone] as of this encounter
== END 2018-06-27 14:38 | DRG 291 ==
LOC: ED 13:17 → ICU 14:18 → AC 06-23 12:29 → ICU 06-26 16:46 → AC 06-27 12:57 → ICU 05-17 13:59 → AC 05-17 14:00 → ICU 05-17 14:00
PROVIDERS: Internal Medicine; Admitting Provider Internal Medicine; Emergency Provider Emergency Medicine; PCP Family Medicine; Visit Provider Internal Medicine
DX: I50.33 Acute on chronic diastolic (congestive) heart failure (principal); J96.01 Acute respiratory failure with hypoxia; K85.90 Acute pancreatitis without necrosis or infection, unspecified; J18.8 Other pneumonia, unspecified organism; N17.9 Acute kidney failure, unspecified; N39.0 Urinary tract infection, site not specified; Z68.41 Body mass index [BMI] 40.0-44.9, adult; D62 Acute posthemorrhagic anemia; D68.32 Hemorrhagic disorder due to extrinsic circulating anticoagulants; N18.4 Chronic kidney disease, stage 4 (severe); E66.01 Morbid (severe) obesity due to excess calories; R04.0 Epistaxis; T45.515A Adverse effect of anticoagulants, initial encounter; Y92.230 Patient room in hospital as the place of occurrence of the external cause; F41.1 Generalized anxiety disorder; I25.10 Atherosclerotic heart disease of native coronary artery without angina pectoris
CPT/HCPCS: 36415; 36430; 36600; 51798; 71045; 71250; 74176; 76700; 80048; 80053; 81001; 82805; 83605; 83690; 83880; 83935; 84145; 84300; 84484; 85014; 85018; 85025; 85610; 85730; 86850; 86900; 86901; 86927; 87040; 87086; 87797; 93005; 93010; 93306; 94660; 94760; 96374; 96375; 97116; 97162; 97166; 97530; 97535; 99285; 99291; 99292; P9016; C9113; J1940; J2060; J2405; J3430